=== PATIENT | female | born 1975 | race Caucasian/White ===

== ENCOUNTER 2020-02-21 10:22 | Outpatient (REF) | payer OTHER, SELFPAY ==
[2020-02-25 19:37] LABS: HPV mRNA E6/E7 Not Detected (Not Detected)
== END 2020-02-21 10:23 | disposition home or self-care (01) ==
LOC: HO.LAB 10:22
PROVIDERS: PCP Internal Medicine; Visit Provider Obstetrics & Gynecology
DX: Z01.419 Encounter for gynecological examination (general) (routine) without abnormal findings (principal)
CPT/HCPCS: 87624; 87625; 88142

== ENCOUNTER → 2020-03-19 15:12 | Outpatient (BNVA) | payer OTHER, SELFPAY | PROVIDERS: PCP Internal Medicine; Referring Provider Internal Medicine; Visit Provider Nurse Practitioner | DX: Z76.89 Persons encountering health services in other specified circumstances (principal) ==

== ENCOUNTER 2020-04-10 11:56 | Outpatient (REF) | payer OTHER, SELFPAY ==
--- NOTE | 2020-04-10 12:03 | MM_ITS ---
EXAMINATION: MM SCREENING DIGITAL MAMMOGRAPHY, BILATERAL CLINICAL INFORMATION: Screening. Asymptomatic. The lifetime risk of breast cancer based on the Tyrer-Cuzick Model is 11.9%. COMPARISON: Mammography: March 28, 2019 and studies dating back to October 16, 2015 TECHNIQUE: Digital mammography is performed in craniocaudal and mediolateral oblique views along with computer-aided detection (CAD). Additional right exaggerated craniocaudal view performed. FINDINGS: The breasts are heterogeneously dense, which may obscure small masses (ACR BI-RADS breast composition Category c). There is waxing and waning of bilateral circumscribed densities consistent with previously shown cysts. One enlarging cyst within the upper outer aspect of the right breast seen. No suspicious grouping of microcalcifications identified. MM/MM screening mammo BI IMPRESSION: There are no significant changes from prior study. ASSESSMENT: BI-RADS 2: Benign RECOMMENDATION: Routine annual mammography screening. This patient's information was entered into a reminder system with a target due date for their next mammogram.
== END 2020-04-10 11:57 | disposition home or self-care (01) ==
LOC: HO.MAMMO 11:56
PROVIDERS: Visit Provider Internal Medicine
DX: Z01.419 Encounter for gynecological examination (general) (routine) without abnormal findings (principal)
CPT/HCPCS: 77067

== ENCOUNTER 2020-04-15 02:08 | Emergency (ER) | payer OTHER, SELFPAY ==
[2020-04-15 02:20] VITALS: BP 119/76; PULSE 75; RESP 18; TEMP 36.6; O2SAT 97; BMI 26.5
--- NOTE | 2020-04-15 03:02 | ED.ABDPAIN ---
HPI - Abdominal Pain General Chief Complaint: Abdominal Pain Stated Complaint: ABD PAIN Time Seen by Provider: 04/15/20 02:14 Source: patient Mode of arrival: ambulatory Limitations: no limitations History of Present Illness HPI narrative: This is a 44-year-old female who presents with onset of epigastric pain at approximately 10:00 p.m. last night not associated with fevers, chills, nausea, vomiting, diarrhea, constipation, or urinary pain/burning/frequency. She describes the pain as engineer exhauster nature, nonradiating, and she has not had this pain this bad before. She denies any exacerbating or alleviating symptoms. Related Data Home Medications Medication Instructions Recorded Confirmed escitalopram oxalate 10 mg tablet 10 mg PO DAILY 02/21/20 02/21/20 ibuprofen 600 mg tablet 600 mg PO TID 02/21/20 02/21/20 risperidone 2 mg tablet 2 mg PO BEDTIME 02/21/20 02/21/20 trazodone 100 mg tablet 100 mg PO BEDTIME PRN 02/21/20 02/21/20 Previous Rx's Medication Instructions Recorded [id number] 1 cap PO QID #120 cap 03/19/20 24,000-76,000-120,000 unit capsule,delayed rel omeprazole 40 mg capsule,delayed 40 mg PO DAILY 30 Days #30 cap 03/19/20 release Allergies Allergy/AdvReac Type Severity Reaction Status Date / Time No Known Allergies Allergy Verified 04/15/20 02:34 [No Known Allergies*] Review of Systems Review of Systems Pertinent positives and negatives as stated in HPI 10 point review of systems otherwise negative. Physical Exam Vital Signs: Vital Signs: Last Vital Signs Temp 98 F 04/15/20 02:20 Pulse 75 04/15/20 02:20 Resp 18 04/15/20 02:20 BP 119/76 04/15/20 02:20 Pulse Ox 97 04/15/20 02:20 Body Mass Index 26.5 VITAL SIGNS: Reviewed. GENERAL: Well developed, well nourished, in no acute distress. HEAD: Normocephalic/atraumatic, EYES: PERRLA, EOMI intact without pain, no nystagmus/pallor/icterus noted EARS: Ext canals without abnormality, TMs non-bulging and non-erythematous NOSE: Nares patent bilateral OROPHARYNX: no oral lesions noted, posterior pharynx clear and non-erythematous without noted tonsillar enlargement/erythema/exudates NECK: Supple, no adenopathy LUNGS: Normal breath sounds. No adventitious sounds or accessory muscle use. SpO2<97> CARDIOVASCULAR: Regular rate and rhythm without noted murmurs, no JVD or lower extremity edema. ABDOMEN: Soft, tenderness in epigastrium/RUQ without rebound, non-distended with bowel sounds. No rigidity. No guarding. No palpable masses or hernias noted MUSCULOSKELETAL: No tenderness, deformities, or effusions noted on gross inspection. EXTREMITIES: No cyanosis, clubbing or edema. SKIN: Inspection of the skin reveals no rashes, ulcerations, jaundice, pallor, or petechiae. NEUROLOGIC: Alert and oriented x 4. Strength and sensation to light touch were grossly intact x 4. Course Course Course Narrative: This is a 44-year-old female with history and clinical presentation suggestive of possible biliary etiology versus pancreatitis versus acute gastritis. On review of all investigation is no evidence of infection, anemia, or acute electrolyte/LFT abnormalities. The GI cocktail and states that although she feels like it has numbed things she still is experiencing the pain raising and further evaluation with CT abdomen/pelvis was negative for any acute findings other than fatty liver. All results and findings were discussed with the patient at bedside and she was informed that she had presumptive gastritis with possible ulcer and the source is potentially her NSAID use that has been ongoing for months. MDM - Abdominal Pain Lab Data Result diagrams: 04/15/20 03:20 04/15/20 03:20 Labs: Lab Results 04/15/20 04/15/20 04/15/20 Range/Units 03:20 03:20 03:20 WBC 8.2 (4.8-10.8) X10*3/uL RBC 4.25 (4.20-5.50) X10*6/uL Hgb 13.2 (12.0-16.0) g/dl Hct 39.1 (37-47) % MCV 92.0 (80-98) fL MCH 31.1 (27.0-33.0) pg MCHC 33.8 (31.0-35.0) g/dl RDW 11.6 (11.0-16.0) % Plt Count 304 (160-400) X10*3/uL MPV 9.0 L (9.4-12.3) fL Immature Gran % (Auto) 0.2 (0.0-0.4) % Neut % (Auto) 65.3 (45-73) % Lymph % (Auto) 26.0 (20-40) % Brooke % (Auto) 6.4 (2-11) % Eos % (Auto) 1.7 (0-4) % Baso % (Auto) 0.4 (0-2) % Lymph # (Auto) 2.1 (1.2-4.9) X10*3/uL Brooke # (Auto) 0.5 (0.1-1.2) X10*3/uL Eos # (Auto) 0.1 (0.0-0.4) X10*3/uL Baso # (Auto) 0.0 (0.0-0.2) X10*3/uL Abs Immat Gran (auto) 0.02 (0.00-0.03) X10*3/uL Absolute Neuts (auto) 5.3 (2.0-8.3) X10*3/uL Absolute Nucleated RBC 0.000 (0.0-0.012) X10*3/uL Nucleated RBC % (auto) 0.0 (0.0-0.2) /100WBC Hold Blue Top SEE NOTE Sodium 139 (135-145) mmol/L Potassium 4.1 (3.3-5.1) mmol/l Chloride 104 (96-108) mmol/L Carbon Dioxide 28 (22-29) mmol/L Anion Gap 11 L (12-20) BUN 17 H (9-16) mg/dL Creatinine 0.71 (0.5-1.4) mg/dL Estim Creat Clear Calc 89.9 Estimated GFR > 60 Random Glucose 112 (60-115) mg/dL Calcium 8.2 L (8.4-10.2) mg/dL Total Bilirubin 0.4 (0.0-1.0) mg/dL AST 23 (5-31) U/L ALT 39 H (0-31) U/L Alkaline Phosphatase 69 (39-117) U/L Total Protein 6.7 (6.5-8.0) g/dL Albumin 4.0 (3.5-5.0) g/dL Lipase 19 (8-78) U/L Urine Color Urine Appearance Urine pH (5.0-8.0) Ur Specific Grandy (1.005-1.025) Urine Protein (NEG-TRACE) MG/DL Urine Glucose (UA) (NEG) MG/DL Urine Ketones (NEG) MG/DL Urine Blood (NEG) Urine Nitrite (NEG) Ur Leukocyte Esterase (NEG) Urine RBC (0) /HPF Urine WBC (0-4) /HPF Ur Squamous Epith Cells /LPF Urine Bacteria /LPF Urine Mucus /LPF Urine Yeast /HPF Urine Test (NEGATIVE) 04/15/20 Range/Units 03:21 WBC (4.8-10.8) X10*3/uL RBC (4.20-5.50) X10*6/uL Hgb (12.0-16.0) g/dl Hct (37-47) % MCV (80-98) fL MCH (27.0-33.0) pg MCHC (31.0-35.0) g/dl RDW (11.0-16.0) % Plt Count (160-400) X10*3/uL MPV (9.4-12.3) fL Immature Gran % (Auto) (0.0-0.4) % Neut % (Auto) (45-73) % Lymph % (Auto) (20-40) % Brooke % (Auto) (2-11) % Eos % (Auto) (0-4) % Baso % (Auto) (0-2) % Lymph # (Auto) (1.2-4.9) X10*3/uL Brooke # (Auto) (0.1-1.2) X10*3/uL Eos # (Auto) (0.0-0.4) X10*3/uL Baso # (Auto) (0.0-0.2) X10*3/uL Abs Immat Gran (auto) (0.00-0.03) X10*3/uL Absolute Neuts (auto) (2.0-8.3) X10*3/uL Absolute Nucleated RBC (0.0-0.012) X10*3/uL Nucleated RBC % (auto) (0.0-0.2) /100WBC Hold Blue Top Sodium (135-145) mmol/L Potassium (3.3-5.1) mmol/l Chloride (96-108) mmol/L Carbon Dioxide (22-29) mmol/L Anion Gap (12-20) BUN (9-16) mg/dL Creatinine (0.5-1.4) mg/dL Estim Creat Clear Calc Estimated GFR Random Glucose (60-115) mg/dL Calcium (8.4-10.2) mg/dL Total Bilirubin (0.0-1.0) mg/dL AST (5-31) U/L ALT (0-31) U/L Alkaline Phosphatase (39-117) U/L Total Protein (6.5-8.0) g/dL Albumin (3.5-5.0) g/dL Lipase (8-78) U/L Urine Color YELLOW Urine Appearance CLEAR Urine pH 6.0 (5.0-8.0) Ur Specific Grandy 1.025 (1.005-1.025) Urine Protein NEG (NEG-TRACE) MG/DL Urine Glucose (UA) NEG (NEG) MG/DL Urine Ketones NEG (NEG) MG/DL Urine Blood 1+ H (NEG) Urine Nitrite NEG (NEG) Ur Leukocyte Esterase NEG (NEG) Urine RBC 5-9 H (0) /HPF Urine WBC 0 (0-4) /HPF Ur Squamous Epith Cells 1+ /LPF Urine Bacteria NONE /LPF Urine Mucus 1+ /LPF Urine Yeast TRACE /HPF Urine Test NEGATIVE (NEGATIVE) Discharge Plan Discharge Clinical Impression: Gastritis Patient Disposition: Home, Self-Care Instructions: Gastritis (ED), Diet for Stomach Ulcers and Gastritis (ED) Additional Instructions: 1. Deje de alejandrina ibuprofeno. 2. Aumente el omeprazol 40 mg de leah vez al d?a a dos veces al d?a (la segunda p?ldora debe tomarse 30 minutos antes de la circular sawyer stone). 3. Llame al consultorio de toure proveedor de atenci?n primaria hoy para programar leah reevaluaci?n de alison s?ntomas y los cambios que se discutieron aqu? en el departamento de emergencias. 4. Por favor, revise las recomendaciones diet?emerita que se incluyen con toure paquete de abdon. Regrese si experimenta alg?n empeoramiento de alison s?ntomas. Prescriptions: No Action Creon 24,000-76,000 -120,000 unit capsule,delayed release(DR/EC) 1 cap PO QID Qty: 120 RF: 3 omeprazole 40 mg capsule,delayed release(DR/EC) 40 mg PO DAILY 30 Days Qty: 30 RF: 3 ibuprofen 600 mg tablet 600 mg PO TID RF: 0 trazodone 100 mg tablet 100 mg PO BEDTIME PRNRF: 0 risperidone 2 mg tablet 2 mg PO BEDTIME RF: 0 escitalopram oxalate 10 mg tablet 10 mg PO DAILY RF: 0 Referrals: Eleazar Evans MD [Primary Care Provider] - 2 days (Please re-evaluate patient as she was seen for suspected gastritis and was instructed to stop taking ibuprofen and instructed to increase the frequency of her omeprazole.) Print Language: Tongan [facility] Past Medical History Source: nursing notes reviewed Medical History ADHD Bipolar 1 disorder Hepatitis B Left knee pain Panic attacks Syphilis Well woman exam Surgical History History of bilateral salpingectomy History of lumpectomy Family History Family History Sister Cancer Social History Social History Household Members: None Alcohol intake: current Alcohol intake frequency: holidays/special occasions only Smoking Status: Current every day smoker Tobacco Type: Cigarette Cigarettes Per Day: 3 Advance Directives: No Advance Directives Information Provided: No Sexual orientation: Straight/Heterosexual Gender identity: female
--- NOTE | 2020-04-15 03:05 | US_ITS ---
EXAMINATION: ABDOMINAL LIMITED CLINICAL INFORMATION: Pain. COMPARISON: 06/07/2019. TECHNIQUE: Real-time imaging of the right upper quadrant abdominal viscera. FINDINGS: PANCREAS: The visualized pancreatic head and body are normal in appearance. The remainder of the pancreas is obscured from visualization by the overlying bowel gas. LIVER: The liver is of normal size and mild diffuse increased echogenicity without focal lesions nor intrahepatic biliary ductal dilation. GALLBLADDER: Normal. The gallbladder is physiologically distended without evidence of stones, sludge, polyps, wall thickening or pericholecystic fluid. COMMON BILE DUCT: Normal in caliber measuring 0.3 cm in diameter. RIGHT KIDNEY: Normal. No hydronephrosis. No renal calculi or focal parenchymal lesions. The kidney measures 10.2 cm in maximum dimension. FREE FLUID: None. US/US abdomen limited IMPRESSION: Liver of mild diffuse increased echogenicity without focal lesions. The appearance is nonspecific, but consistent with fatty infiltration. Neither cholelithiasis nor cholecystitis.
[2020-04-15 03:26] LABS: MANUAL DIFF FLAG NO
[2020-04-15 03:28] LABS: Basophils Percent Auto 0.4 % (0-2); Eosinophils Absolute Auto 0.1 X10*3/uL (0.0-0.4); Eosinophils Percent Auto 1.7 % (0-4); Hematocrit 39.1 % (37-47); Hemoglobin 13.2 g/dl (12.0-16.0); Imm Gran Abs Auto 0.02 X10*3/uL (0.00-0.03); Imm Gran Pct Auto 0.2 % (0.0-0.4); Lymphocytes Absolute Auto 2.1 X10*3/uL (1.2-4.9); Mean Corpuscular HGB Conc 33.8 g/dl (31.0-35.0); Mean Corpuscular Hemoglobin 31.1 pg (27.0-33.0); Monocytes Absolute Auto 0.5 X10*3/uL (0.1-1.2); Monocytes Percent Auto 6.4 % (2-11); Neutrophils Absolute Auto 5.3 X10*3/uL (2.0-8.3); Neutrophils Percent Auto 65.3 % (45-73); Platelet Count 304 X10*3/uL (160-400); Red Blood Count 4.25 X10*6/uL (4.20-5.50); Red Cell Distribution Width 11.6 % (11.0-16.0); White Blood Count 8.2 X10*3/uL (4.8-10.8)
[2020-04-15] MEDS: Ketorolac Tromethamine 15 MG/ML VIAL IVPUSH (03:28)
[2020-04-15 03:29] LABS: Glucose Urine UA NEG (NEG); Leukocyte Esterase Urine NEG (NEG); Nitrite Urine NEG (NEG); Specific Gravity - Urine 1.025 (1.005-1.025); Urine Blood 1+ (NEG); Urine Ketones NEG (NEG); Urine Protein NEG (NEG-TRACE)
[2020-04-15] MEDS: Lidocaine HCl Viscous 2 % 15 ML SOLUTION 10 ML MUCOUS MEM (03:29)
[2020-04-15] MEDS: Magnesium Hydrox/Alum Hydrox 30 ML ORAL.SUSP PO (03:29)
[2020-04-15] MEDS: Acetaminophen 325 MG TABLET 975 MG PO (03:29)
[2020-04-15 03:33] LABS: Appearance Urine CLEAR; Color Urine YELLOW
[2020-04-15 03:37] LABS: UPreg QC Valid YES; Urine Pregnancy NEGATIVE (NEGATIVE)
[2020-04-15 03:52] LABS: Alanine Aminotransferase 39 U/L (0-31); Alkaline Phosphatase 69 U/L (39-117); Anion Gap 11 (12-20); Aspartate Amino Transferase 23 U/L (5-31); Bilirubin Total 0.4 mg/dL (0.0-1.0); Blood Urea Nitrogen 17 mg/dL (9-16); Calcium 8.2 mg/dL (8.4-10.2); Carbon Dioxide 28 mmol/L (22-29); Chloride 104 mmol/L (96-108); Creatinine Clr Calc Pharmacy 89.9; Estimated Glomerular Filt Rate > 60; Glucose Random 112 mg/dL (60-115); Lipase 19 U/L (8-78); Potassium 4.1 mmol/l (3.3-5.1); Sodium 139 mmol/L (135-145); Total Protein 6.7 g/dL (6.5-8.0)
--- NOTE | 2020-04-15 03:58 | PC.NURSE ---
PATIENT RETURNED FROM ULTRASOUND WITH STAFF AT THIS TIME. AMBULATES WITH STEADY GAIT.
[2020-04-15 04:02] LABS: Mucus Urine 1+ /LPF; Squamous Epithelial Cell Urine 1+ /LPF; WBC Urine 0 /HPF (0-4)
--- NOTE | 2020-04-15 04:14 | CT_ITS ---
EXAMINATION: CT ABDOMEN AND PELVIS WITH CONTRAST CLINICAL INFORMATION: Epigastric pain. COMPARISON: 06/07/2019. TECHNIQUE: Contiguous axial thin section helical images of the abdomen and pelvis were performed following the administration of 85 mL of intravenous Omnipaque 350. The data set was reformatted in the coronal and sagittal planes and reviewed on an independent workstation. DLP: 532 mGy-cm. FINDINGS: The visualized lung bases are clear. The visualized portions of the heart are unremarkable. The liver is of normal size and attenuation without focal lesions nor intrahepatic biliary ductal dilation. A normal gallbladder is identified. There is no wall thickening or discernible pericholecystic fluid. The spleen, pancreas, adrenal glands are unremarkable. Both kidneys are of normal size and attenuation without hydronephrosis or nephrolithiasis. Following the administration of IV contrast, prompt symmetric nephrograms are displayed. There is no abdominal free fluid. There is neither mesenteric nor retroperitoneal lymphadenopathy. Normal unopacified loops of small and large bowel are identified. There is no pelvic free fluid. The urinary bladder is unremarkable. There is neither pelvic nor inguinal lymphadenopathy. Bone windows: Neither sclerotic nor lytic bone lesions are identified. CT/CT abdomen pelvis w con IMPRESSION: No evidence for acute abdominal or pelvic inflammatory or infectious processes. Automated exposure control (Care Dose) Adjustment of the mA and/or kv according to patient size (this includes techniques or standardized protocols for targeted exams where dose is matched to indication / reason for exam; i.e. extremities or head).
--- NOTE | 2020-04-15 04:26 | PC.NURSE ---
PATIENT AWAY FOR CT SCAN.
[2020-04-15] MEDS: iohexoL 350 MG/ML 100 ML INFUS..BTL 85 ML IV (04:42)
--- NOTE | 2020-04-15 05:04 | PC.NURSE ---
AT BEDSIDE SPEAKING WITH PATIENT.
== END 2020-04-15 05:51 | disposition home or self-care (01) ==
PROVIDERS: Emergency Provider Student in an Organized Health Care Education/Training Program; PCP Internal Medicine
DX: K29.00 Acute gastritis without bleeding (principal); Z79.899 Other long term (current) drug therapy; F17.210 Nicotine dependence, cigarettes, uncomplicated; Z71.6 Tobacco abuse counseling
CPT/HCPCS: 36415; 74177; 76705; 80053; 81001; 81025; 83690; 85025; 96374; 99283; 99284; J1885; Q9967

== ENCOUNTER → 2020-04-30 14:47 | Outpatient (BNVA) | payer OTHER, SELFPAY | PROVIDERS: PCP Internal Medicine; Visit Provider Nurse Practitioner | DX: Z76.89 Persons encountering health services in other specified circumstances (principal) ==

== ENCOUNTER 2020-05-02 13:25 | Emergency (ER) | payer OTHER, SELFPAY ==
[2020-05-02 13:28] VITALS: BP 112/68; PULSE 78; RESP 18; TEMP 37.2; O2SAT 97; BMI 26.9
--- NOTE | 2020-05-02 14:38 | CT_ITS ---
CT ANGIOGRAM NECK WITH CONTRAST CT ANGIOGRAM BRAIN WITH CONTRAST CLINICAL INFORMATION: RIGHT sided neck pain with radiation to head, rule out dissection. COMPARISON: None available. TECHNIQUE: Test bolus sequences followed by intravenous administration 70 mL of Omnipaque 350. Helical imaging was performed in the axial plane from the thoracic inlet to the skull vertex. Delayed postcontrast imaging of the head was also performed. The data was processed at the clinical laboratory technologist workstation for generation of MIP sequences. Angled MIPs and volume rendered reformatted images were also generated at an offline 3D workstation under concurrent supervision. Stenoses are assessed in accordance with NASCET criteria unless otherwise indicated. This CT examination was performed using dose optimization techniques as appropriate, variously including the following: *Automated exposure control *Adjustment of mA and/or kV according to patient size (this includes techniques or standardized protocols for targeted exams where dose is matched to indication/reason for exam; i.e. extremities or head) *Use of iterative reconstruction technique FINDINGS: BRAIN: [There is no intracranial hemorrhage, hydrocephalus, extra-axial surface collection, midline shift, or other herniation pattern. Cavazos to white matter differentiation is diffusely maintained without evidence of an evolved acute territorial infarct. The basilar cisterns are preserved. No significant soft tissue abnormality. No acute osseous abnormality. The paranasal sinuses and the mastoid air cells are well aerated.] CERVICAL SOFT TISSUES AND LUNG APICES: [Mild cervical spondylosis. No significant soft tissue findings within the neck. Imaged upper lungs are clear. NECK CTA: [There is a classic 3 vessel configuration of the aortic arch. Proximal arch vessels are non-stenotic. The vertebral arteries are codominant. No significant ostial stenosis is visualized on either side. Both vertebral arteries are widely patent throughout their extracranial cervical course. Both common and internal carotid arteries are normal in course and caliber.] BRAIN CTA: [There is normal opacification of major intracranial arteries. No focal flow-limiting stenosis nor discrete proximal large artery occlusion. No aneurysm. Timing of the contrast bolus allows assessment of the major dural venous sinuses, which all opacify normally] CT/CT angio head neck IMPRESSION: No acute intracranial findings. No evidence of arterial dissection. Unremarkable CTA of the head and neck. Mild cervical spondylosis.
--- NOTE | 2020-05-02 14:45 | ED_ITS ---
HPI - Headache General Chief Complaint: Headache Stated Complaint: headache Time Seen by Provider: 05/02/20 14:38 Source: patient Mode of arrival: ambulatory Limitations: no limitations History of Present Illness HPI Narrative: 44-year-old female with a past medical history migraines and GERD here with complaints of right-sided neck and head pain x3 days. Seen by her primary care doctor and given Imitrex but continues to have symptoms. No numbness or tingling. No weakness that is focal. No complaints of nausea, vomiting, photophobia. No previous history of migraines. No trauma or injury MD elicited complaint: headache Onset (ago): day(s) Onset description: suddenly Location: right Severity: mild Quality & Timing: throbbing Exacerbating factors: exertion and movement of head/neck Relieving factors: nothing Treatments prior to arrival: migraine medication (imitrex) Related Data Home Medications Medication Instructions Recorded Confirmed escitalopram oxalate 10 mg tablet 10 mg PO DAILY 02/21/20 04/30/20 ibuprofen 600 mg tablet 600 mg PO TID 02/21/20 04/30/20 risperidone 2 mg tablet 2 mg PO BEDTIME 02/21/20 04/30/20 trazodone 100 mg tablet 100 mg PO BEDTIME PRN 02/21/20 04/30/20 clonazepam 1 mg tablet 1 mg PO BID PRN 04/21/20 04/30/20 Previous Rx's Medication Instructions Recorded pantoprazole 40 mg tablet,delayed 40 mg PO DAILY 30 Days #30 tab 04/30/20 release sumatriptan succinate 50 mg tablet 50 mg PO .QD PRN #10 tab 04/30/20 cyclobenzaprine 10 mg PO TID PRN #10 tab 05/02/20 naproxen 500 mg PO BID PRN #20 tab 05/02/20 Allergies Allergy/AdvReac Type Severity Reaction Status Date / Time No Known Allergies Allergy Verified 04/30/20 14:47 [No Known Allergies*] Review of Systems Review of Systems: Yes all other systems are reviewed and are negative Constitutional: Constitutional: Reports no additional constitutional complaints, Denies body ache(s), Denies chills, Denies fever(s), Reports headache(s) and Denies weakness Eyes: Eyes: Reports no additional eye complaints and Denies change in vision ENT: Reports system reviewed and no additional complaints, except as documented, Denies dizziness, Reports headache(s), Denies nasal congestion, Denies nasal discharge and Reports neck pain Cardiovascular: Cardiovascular: Reports no additional cardiovascular complaints, Denies chest pain, Denies leg edema and Denies dyspnea Respiratory: Respiratory: Reports no additional respiratory complaints, Denies cough and Denies dyspnea Gastrointestinal: Gastrointestinal: Reports no additional gastrointestinal complaints, Denies abdominal pain, Denies diarrhea, Denies nausea and Denies vom iting Genitourinary: Genitourinary: Reports no additional female genitourinary complaints and Denies urinary incontinence Musculoskeletal: Musculoskeletal: Reports no additional musculoskeletal complaints, Denies back pain, Denies arthralgias, Denies joint swelling, Reports neck pain, Denies numbness and Denies tingling Integumentary/Breasts: Skin/Breast: Reports system reviewed and no additional complaints, except as docu and Denies rash Neurologic: Reports system reviewed and no additional complaints, except as d ocumented, Denies Abnormal speech present, Denies dizziness, Reports headache(s), Denies numbness, Denies tingling and Denies weakness [facility] Past Medical History Medical History (Updated 05/02/20 @ 17:24 by Sarita Galeano NP) ADHD Bipolar 1 disorder Hepatitis B Left knee pain Panic attacks Syphilis Well woman exam Surgical History (Updated 04/29/20 @ 11:05 by ZACH Couch) History of bilateral salpingectomy History of ectopic History of lumpectomy History of open reduction and internal fixation (ORIF) procedure Family History Family History (Updated 04/29/20 @ 11:09 by ZACH Couch) Sister Cancer Father Medical history unknown Mother Asthma Hepatitis C Hypoglycemia Son In good health Brother In good health Sister In good health Family/Other Breast cancer Social History Social History (Updated 04/30/20 @ 14:48 by ZACH Wilde) Household Members: None Alcohol intake: never Smoking Status: Never smoker Tobacco Type: Cigarette Cigarettes Per Day: 3 Use of substances other than those prescribed or required for medical reasons: No Advance Directives: No Advance Directives Information Provided: No Sexual orientation: Straight/Heterosexual Gender identity: female Physical Exam Vital Signs: Vital Signs: Last Vital Signs Temp 98.4 F 05/02/20 16:40 Pulse 75 05/02/20 16:40 Resp 16 01/01/21 16:40 BP 127/73 05/02/20 16:40 Pulse Ox 98 05/02/20 16:40 Body Mass Index 26.9 Const: General: cooperative, healthy appearing, comfortable and no acute distress Orientation/consciousness: patient oriented x3 Limitations: no limitations HENMT: Head: Yes normal to inspection Ears: hearing grossly normal bilaterally General nose exam: Normal external nose present Face and sinus: Yes normal facial exam Mouth: Normal oral and palatal mucosa present Throat: Yes posterior oropharynx normal Eyes: General: appearance normal, both eyes and all related structures Pupils: Equal, round and reactive pupils present Neck: Other: To the right neck at the base of the right occipt there is tenderness and pain. There is no obvious pulsating or thrill or bruit. Pain is worsened with palpation and movement. Neck: Yes normal visual inspection Chest: Chest palpation & inspection: normal inspection of the chest Resp: Effort & Inspection: normal respiratory effort Auscultation: clear to auscultation bilaterally Cardio: Rate: regular rate Rhythm: regular rhythm Peripheral pulses: Peripheral pulses 2+ throughout GI: Inspection: Yes normal to inspection Palpation (GI): Soft to palpation and nontender Auscultation: normal bowel sounds Back/Spine/Pelvis: Thoracic/Lumbar Spine: thoracic and lumbar spine normal to inspection Skin: General skin exam: no rashes or lesions noted Neuro: General: patient oriented x3, no focal motor deficits and normal sensation to monofilament Cranial nerves: Yes Equal, round and reactive pu pils present Cognition (Neuro): normal cognition Speech: No Abnormal speech present Gait exam (Neuro): Normal gait present Motor exam (neuro): 5/5 motor strength present throughout Extrem: General: Yes normal to inspection Course Course Course Narrative: 44-year-old female here with right-sided neck pain and headache x3 days unrelieved with home migraine medications. Patient seen at private primary and thought to be secondary to migraines she was prescribed Imitrex but she is taking this with continued symptoms. Normal neurological exam. Pain is worsened with palpation, movement. Will check labs, UR preg, CT head/neck. 1800-labs unremarkable. CT head and neck unremarkable. Likely musculoskeletal with a tension migraine. Symptoms improved after receiving analgesia here. Reviewed worrisome signs and symptoms and when to return to the emergency department. Comfortable with discharge home. MDM - Headache MDM Narrative Medical decision making narrative: Tension headache, musculoskeletal pain, vertebral dissection, CVA vs ICH vs lesion Medical Records Attestation: I reviewed the patient's medical records. Lab Data Attestation: I reviewed the patient's lab results. Result diagrams: 05/02/20 14:55 05/02/20 14:55 Labs: Lab Results 05/02/20 05/02/20 05/02/20 Range/Units 14:55 14:55 14:55 WBC 6.2 (4.8-10.8) X10*3/uL RBC 4.40 (4.20-5.50) X10*6/uL Hgb 14.0 (12.0-16.0) g/dl Hct 40.7 (37-47) % MCV 92.5 (80-98) fL MCH 31.8 (27.0-33.0) pg MCHC 34.4 (31.0-35.0) g/dl RDW 11.1 (11.0-16.0) % Plt Count 310 (160-400) X10*3/uL MPV 9.1 L (9.4-12.3) fL Immature Gran % (Auto) 0.2 (0.0-0.4) % Neut % (Auto) 59.3 (45-73) % Lymph % (Auto) 34.1 (20-40) % Lander % (Auto) 5.2 (2-11) % Eos % (Auto) 1.0 (0-4) % Baso % (Auto) 0.2 (0-2) % Lymph # (Auto) 2.1 (1.2-4.9) X10*3/uL Lander # (Auto) 0.3 (0.1-1.2) X10*3/uL Eos # (Auto) 0.1 (0.0-0.4) X10*3/uL Baso # (Auto) 0.0 (0.0-0.2) X10*3/uL Abs Immat Gran (auto) 0.01 (0.00-0.03) X10*3/uL Absolute Neuts (auto) 3.7 (2.0-8.3) X10*3/uL Absolute Nucleated RBC 0.000 (0.0-0.012) X10*3/uL Nucleated RBC % (auto) 0.0 (0.0-0.2) /100WBC Sodium 138 (135-145) mmol/L Potassium 4.3 (3.3-5.1) mmol/l Chloride 101 (96-108) mmol/L Carbon Dioxide 28 (22-29) mmol/L Anion Gap 13 (12-20) BUN 16 (9-16) mg/dL Creatinine 0.70 (0.5-1.4) mg/dL Estim Creat Clear Calc 91.8 Estimated GFR > 60 Random Glucose 90 (60-115) mg/dL Calcium 9.2 D (8.4-10.2) mg/dL Urine Test NEGATIVE (NEGATIVE) Imaging Data Ct head/neck : Attestation: I personally reviewed and interpreted this imaging study as leo lombardo: Radiologist's impression: CT ANGIOGRAM NECK WITH CONTRAST CT ANGIOGRAM BRAIN WITH CONTRAST CLINICAL INFORMATION: RIGHT sided neck pain with radiation to head, rule out dissection. COMPARISON: None available. TECHNIQUE: Test bolus sequences followed by intravenous administration 70 mL of Omnipaque 350. Helical imaging was performed in the axial plane from the thoracic inlet to the skull vertex. Delayed postcontrast imaging of the head was also performed. The data was processed at the manufacturing engineering technologist workstation for generation of MIP sequences. Angled MIPs and volume rendered reformatted images were also generated at an offline 3D workstation under concurrent supervision. Stenoses are assessed in accordance with NASCET criteria unless otherwise indicated. This CT examination was performed using dose optimization techniques as appropriate, variously including the following: *Automated exposure control *Adjustment of mA and/or kV according to patient size (this includes techniques or standardized protocols for targeted exams where dose is matched to indication/reason for exam; i.e. extremities or head) *Use of iterative reconstruction technique FINDINGS: BRAIN: [There is no intracranial hemorrhage, hydrocephalus, extra-axial surface collection, midline shift, or other herniation pattern. Cavazos to white matter differentiation is diffusely maintained without evidence of an evolved acute territorial infarct. The basilar cisterns are preserved. No significant soft tissue abnormality. No acute osseous abnormality. The paranasal sinuses and the mastoid air cells are well aerated.] CERVICAL SOFT TISSUES AND LUNG APICES: [Mild cervical spondylosis. No significant soft tissue findings within the neck. Imaged upper lungs are clear. NECK CTA: [There is a classic 3 vessel configuration of the aortic arch. Proximal arch vessels are non-stenotic. The vertebral arteries are codominant. No significant ostial stenosis is visualized on either side. Both vertebral arteries are widely patent throughout their extracranial cervical course. Both common and internal carotid arteries are normal in course and caliber.] BRAIN CTA: [There is normal opacification of major intracranial arteries. No focal flow-limiting stenosis nor discrete proximal large artery occlusion. No aneurysm. Timing of the contrast bolus allows assessment of the major dural venous sinuses, which all opacify normally] CT/CT angio head neck IMPRESSION: No acute intracranial findings. No evidence of arterial dissection. Unremarkable CTA of the head and neck. Mild cervical spondylosis. Discharge Plan Discharge Clinical Impression: Tension headache, Muscle spasm Patient Disposition: Home, Self-Care Instructions: Tension Headache (ED), Muscle Spasm (ED) Additional Instructions: Heat or ice Gentle stretching Follow-up with her primary care doctor Prescriptions: New cyclobenzaprine 10 mg tablet 10 mg PO TID PRN (Reason: muscle spasm) Qty: 10 RF: 0 naproxen 500 mg tablet 500 mg PO BID PRN (Reason: pain) Qty: 20 RF: 0 No Action clonazepam 1 mg tablet 1 mg PO BID PRNRF: 0 sumatriptan succinate [Imitrex] 50 mg tablet 50 mg PO .QD PRN (Reason: migraine headache) Qty: 10 RF: 1 ibuprofen 600 mg tablet 600 mg PO TID RF: 0 trazodone 100 mg tablet 100 mg PO BEDTIME PRNRF: 0 risperidone 2 mg tablet 2 mg PO BEDTIME RF: 0 escitalopram oxalate 10 mg tablet 10 mg PO DAILY RF: 0 pantoprazole [Protonix] 40 mg tablet,delayed release (DR/EC) 40 mg PO DAILY 30 Days Qty: 30 RF: 3 Referrals: Eleazar Evans MD [Primary Care Provider] - 2 days Interventions: ED Discharge Assessment Last Done: 05/02/20 17:40 Discharge Date/Time: 05/02/20 17:40
[2020-05-02 14:56] VITALS: RESP 18
[2020-05-02] MEDS: ondansetron HCL 4 MG/2 ML VIAL IVPUSH (14:56)
[2020-05-02] MEDS: Morphine Sulfate 4 MG/ML CARTRIDGE IVPUSH (14:56)
[2020-05-02 15:08] LABS: Basophils Percent Auto 0.2 % (0-2); Eosinophils Absolute Auto 0.1 X10*3/uL (0.0-0.4); Hematocrit 40.7 % (37-47); Imm Gran Abs Auto 0.01 X10*3/uL (0.00-0.03); Imm Gran Pct Auto 0.2 % (0.0-0.4); Lymphocytes Absolute Auto 2.1 X10*3/uL (1.2-4.9); Lymphocytes Percent Auto 34.1 % (20-40); MANUAL DIFF FLAG NO; Mean Corpuscular HGB Conc 34.4 g/dl (31.0-35.0); Mean Corpuscular Hemoglobin 31.8 pg (27.0-33.0); Mean Corpuscular Volume 92.5 fL (80-98); Mean Platelet Volume 9.1 fL (9.4-12.3); Monocytes Absolute Auto 0.3 X10*3/uL (0.1-1.2); Monocytes Percent Auto 5.2 % (2-11); Neutrophils Absolute Auto 3.7 X10*3/uL (2.0-8.3); Neutrophils Percent Auto 59.3 % (45-73); Platelet Count 310 X10*3/uL (160-400); Red Cell Distribution Width 11.1 % (11.0-16.0); White Blood Count 6.2 X10*3/uL (4.8-10.8)
[2020-05-02 15:13] LABS: UPreg QC Valid YES; Urine Pregnancy NEGATIVE (NEGATIVE)
[2020-05-02 15:45] LABS: Anion Gap 13 (12-20); Blood Urea Nitrogen 16 mg/dL (9-16); Calcium 9.2 mg/dL (8.4-10.2); Carbon Dioxide 28 mmol/L (22-29); Chloride 101 mmol/L (96-108); Creatinine Clr Calc Pharmacy 91.8; Estimated Glomerular Filt Rate > 60; Glucose Random 90 mg/dL (60-115); Potassium 4.3 mmol/l (3.3-5.1); Sodium 138 mmol/L (135-145)
[2020-05-02] MEDS: iohexoL 350 MG/ML 100 ML INFUS..BTL IV (16:36)
[2020-05-02 16:40] VITALS: BP 127/73; PULSE 75; RESP 16; TEMP 36.9; O2SAT 98
--- NOTE | 2020-05-02 16:44 | PC.NURSE ---
pt reports no improvement in pain s/p medication. ambulated to br w/ even steady gait.
[2020-05-02] MEDS: Cyclobenzaprine HCl 10 MG TABLET PO (17:20)
[2020-05-02] MEDS: Ketorolac Tromethamine 30 MG/ML VIAL IVPUSH (17:20)
== END 2020-05-02 17:40 | disposition home or self-care (01) ==
PROVIDERS: Nurse Practitioner Family; Emergency Provider Emergency Medicine; PCP Internal Medicine
DX: G44.209 Tension-type headache, unspecified, not intractable (principal); M62.838 Other muscle spasm; M47.812 Spondylosis without myelopathy or radiculopathy, cervical region; F17.210 Nicotine dependence, cigarettes, uncomplicated
CPT/HCPCS: 36415; 70496; 70498; 80048; 81025; 85025; 96374; 96375; 99284; J1885; J2270; J2405; Q9967

== ENCOUNTER 2020-05-29 10:52 | Outpatient (RCR) | payer OTHER, SELFPAY ==
--- NOTE | 2020-05-29 12:00 | MHC.PT.EP ---
[facility] [place] Office [place] Office [place] Office [address] [phone] F: [phone] F: [phone] F: [phone] F: [phone] Physical Therapy Plan of Care Date of Evaluation: 05/29/20 Date of Surgery: NA Diagnosis: Strain of muscle, fascia and tendon at neck level, sequela Assessment: 44 year old female referred for strain of muscle, fascia, and tendon at neck level, sequela . She reports of having sudden onset of neck pain about 2 months back. She denies any trauma or fall. Pt reports of having pain in R side of her neck behind her ears which travels down to R UT. She denies any radicular symptoms. Examination reveals 8/10 pain in R side of neck with R rotation, flexion, decreased cervical ROM, TTP over R UT, C2 spinous process, decreased PA mobility at C2-3-4, decreased muscle strength and altered posture. She lives alone and is independent with all ADLs but has pain with activities requiring her to look to the R and reach overhead. She is unemployed. She is a good candidate for PT based on age, goals, physical impairments and functional limitations. She would benefit from PT to decrease pain, improve ROM, increase muscle strength, postural correction and functional training. Frequency and Duration: The patient will be seen 2/week for 4 weeks Short Term Goals: 1. Pt will have 50% decrease in pain in 2 weeks. 2. Pt will be able to move cervical spine through all planes of motion without pain in 3 weeks Roentgenology Teacher Goals: 1. Pt will be able to perform all ADLS without pain in 4 weeks. 2. Pt will return to PLOF in 4 weeks. Treatment Plan: Modalities to reduce pain, spasms and effusion. Manual therapy to restore motion and function. Therapeutic exercise to improve strength and flexibility. Neuromuscular re-education for posture and balance. Therapeutic activities to return to functional activities of daily living. Electronically signed by: Jennifer Lott DPT Please sign and return to therapist. Thank you for your referral.
--- NOTE | 2020-07-08 10:44 | MHC.PT.DC ---
[facility] [place] Office [place] Office [place] Office [address] Nimisha Goodman [address] [phone] F: [phone] F: [phone] F: [phone] F: [phone] Physical Therapy Discharge Report Diagnosis: Strain of muscle, fascia and tendon at neck level, sequela Date of Surgery: NA Date of Evaluation: 05/29/20 Date of Discharge: 07/08/20 Treatments to Date: 1 Cancellations to Date: 5 No Shows to Date: 3 Discharge Status: Visit Non-compliance Discharge Summary: Pt discharged from therapy for non compliance. Electronically signed by: Jennifer Lott DPT Please sign and return to therapist. Thank you for your referral.
== END 2020-07-08 10:45 | disposition other institution (70) ==
LOC: HO.PT 10:52
PROVIDERS: PCP Internal Medicine; Visit Provider Internal Medicine
DX: S16.1XXD Strain of muscle, fascia and tendon at neck level, subsequent encounter (principal)
CPT/HCPCS: 97110; 97140; 97161

== ENCOUNTER 2020-07-30 09:03 | Outpatient (REF) | payer OTHER, SELFPAY ==
[2020-07-30 14:43] LABS: CT PCR NOT DETECTED (Not Detect.)
[2020-07-30 14:44] LABS: NG PCR NOT DETECTED (Not Detect.)
== END 2020-07-30 09:04 | disposition home or self-care (01) ==
LOC: HO.LAB 09:03
PROVIDERS: PCP Internal Medicine; Visit Provider Obstetrics & Gynecology
DX: R10.2 Pelvic and perineal pain (principal); N94.10 Unspecified dyspareunia; R35.0 Frequency of micturition; R31.29 Other microscopic hematuria
CPT/HCPCS: 81003; 81025; 87491; 87591; 99212

== ENCOUNTER 2020-08-06 11:21 | Outpatient (REF) | payer OTHER, SELFPAY ==
--- NOTE | ~2020-08-06 | US_ITS ---
EXAMINATION: US PELVIS, COMPLETE CLINICAL INFORMATION: Pelvic pain. COMPARISON: None TECHNIQUE: Transabdominal and transvaginal imaging was performed. FINDINGS: LMP: 3 weeks ago. Uterus is anteverted, measuring 6.9 x 3.3 x 4.1 cm. No focal uterine lesion. Nabothian cysts in the cervix. Endometrial thickness 0.8 cm. Right ovary measures 2 x 1.9 x 1.5 cm. Volume 3 mL. Small follicles. Normal vascular flow seen. Left ovary measures 3 x 2.4 x 2.1 cm. Volume 7.9 mL. There is a hypoechoic 1.3 x 1.2 x 1.6 cm focus with hyperechoic wall. This is indeterminate. Normal vascular flow. No free fluid in the cul-de-sac. US/US pelvic complete IMPRESSION: Left ovarian 1.6 cm complex hypoechoic lesion with hyperechoic wall. Differential considerations include complex cystic lesion, hemorrhagic cyst, endometrioma. Recommend followup ultrasound in 6-12 weeks.
--- NOTE | ~2020-08-06 | US_ITS ---
EXAMINATION: US PELVIS, COMPLETE CLINICAL INFORMATION: Pelvic pain. COMPARISON: None TECHNIQUE: Transabdominal and transvaginal imaging was performed. FINDINGS: LMP: 3 weeks ago. Uterus is anteverted, measuring 6.9 x 3.3 x 4.1 cm. No focal uterine lesion. Nabothian cysts in the cervix. Endometrial thickness 0.8 cm. Right ovary measures 2 x 1.9 x 1.5 cm. Volume 3 mL. Small follicles. Normal vascular flow seen. Left ovary measures 3 x 2.4 x 2.1 cm. Volume 7.9 mL. There is a hypoechoic 1.3 x 1.2 x 1.6 cm focus with hyperechoic wall. This is indeterminate. Normal vascular flow. No free fluid in the cul-de-sac. US/US transvaginal IMPRESSION: Left ovarian 1.6 cm complex hypoechoic lesion with hyperechoic wall. Differential considerations include complex cystic lesion, hemorrhagic cyst, endometrioma. Recommend followup ultrasound in 6-12 weeks.
== END 2020-08-06 11:22 | disposition home or self-care (01) ==
LOC: HO.US 11:21
PROVIDERS: Visit Provider Obstetrics & Gynecology
DX: R10.2 Pelvic and perineal pain (principal)
CPT/HCPCS: 76830; 76856

== ENCOUNTER 2020-08-12 07:17 | Day surgery (SDC) | payer OTHER, SELFPAY ==
[2020-08-06 12:26] VITALS: BMI 26.9
--- NOTE | 2020-08-08 14:05 | HO.ANESPROP2 ---
Documented by User: Kelly Mancuso 08/08/20 14:06 HPI - Anesthesia Eval Consult details Narrative: 44yo F for Upper Endoscopy PMFSH Active Problems Active Problems: All Active Problems (Updated 08/06/20 @ 12:21 by Carito So) Biliary dyskinesia (Acute) GERD (gastroesophageal reflux disease) (Acute) Migraine (Acute) Epigastric pain (Acute) Pelvic pain (Acute) Microscopic hematuria (Acute) Acute cervical myofascial strain (Acute) Migraine headache (Acute) Past Medical History Medical History Acute cervical myofascial strain ADHD Bipolar 1 disorder Hepatitis B Left knee pain Migraine headache Panic attacks Syphilis Family History Family History Sister Cancer Father Medical history unknown Mother Asthma Hepatitis C Hypoglycemia Son In good health Brother In good health Sister In good health Family/Other Breast cancer Surgical History Surgical History History of bilateral salpingectomy History of ectopic History of lumpectomy History of open reduction and internal fixation (ORIF) procedure Social History Social History Household Members: None Alcohol intake: never Smoking Status: Never smoker Tobacco Type: Cigarette Cigarettes Per Day: 3 Advance Directives: No Advance Directives Information Provided: No Advance Directives on File: No Sexual orientation: Straight/Heterosexual Gender identity: female Meds Allergies Allergy/AdvReac Type Severity Reaction Status Date / Time No Known Allergies Allergy Verified 08/12/20 07:52 [No Known Allergies*] Home Medications Medication Instructions Recorded Confirmed Last Taken Type escitalopram oxalate 10 mg tablet 10 mg PO DAILY 02/21/20 08/06/20 Unknown History risperidone 2 mg tablet 2 mg PO BEDTIME 02/21/20 08/06/20 Unknown History trazodone 100 mg tablet 100 mg PO BEDTIME PRN 02/21/20 05/09/20 Unknown History clonazepam 1 mg tablet 1 mg PO BID PRN 04/21/20 08/06/20 Unknown History Exam Exam Date and Time: August 08, 2020 1405 Height,Weight and Vital Signs: Height 5 ft 2 in Weight 66.678 kg Assessment and Plan Assessment Anesthesia Assessment: Chart Reviewed Documented by User: Mehreen Sanchez 08/12/20 08:45 PMFSH Past Medical History Medical History Acute cervical myofascial strain ADHD Bipolar 1 disorder Hepatitis B Left knee pain Migraine headache Panic attacks Syphilis Family History Family History Sister Cancer Father Medical history unknown Mother Asthma Hepatitis C Hypoglycemia Son In good health Brother In good health Sister In good health Family/Other Breast cancer Surgical History Surgical History History of bilateral salpingectomy History of ectopic History of lumpectomy History of open reduction and internal fixation (ORIF) procedure Social History Social History Household Members: None Alcohol intake: never Smoking Status: Never smoker Tobacco Type: Cigarette Cigarettes Per Day: 3 Advance Directives: No Advance Directives Information Provided: No Advance Directives on File: No Sexual orientation: Straight/Heterosexual Gender identity: female Meds Allergies Allergy/AdvReac Type Severity Reaction Status Date / Time No Known Allergies Allergy Verified 08/12/20 07:52 [No Known Allergies*] Home Medications Medication Instructions Recorded Confirmed Last Taken Type escitalopram oxalate 10 mg tablet 10 mg PO DAILY 02/21/20 08/06/20 Unknown History risperidone 2 mg tablet 2 mg PO BEDTIME 02/21/20 08/06/20 Unknown History trazodone 100 mg tablet 100 mg PO BEDTIME PRN 02/21/20 05/09/20 Unknown History clonazepam 1 mg tablet 1 mg PO BID PRN 04/21/20 08/06/20 Unknown History Exam Airway Mallampati Class: II TM Dist: >3cm Neck ROM: Full Partial: Upper Loose/Missing/Broken Teeth: Yes Heart: RRR Lungs: CTA Assessment and Plan Assessment Anesthesia Assessment: Anesthesia Plan Discussed and Chart Reviewed Final Anesthetic Review NPO: Yes ASA Class: II Final Preanesthetic Review: Meds/Allgs Chart Reviewed, Consent Obtained/Reviewed and Anes Risks/Benef Reviewed Patient Risk: Low Procedure Risk: Intermediate Anesthetic Plan Anesthetic Plan: MAC: Disposition: Standard PACU
[2020-08-12 07:56] VITALS: BP 99/50; PULSE 65; RESP 16; TEMP 36.6; O2SAT 98
[2020-08-12] MEDS: Lactated Ringers 1,000 ML 100 ML IVCONT (08:07)
[2020-08-12] MEDS: Scopolamine 1.5 MG PATCH.TD.3 EAR-BEHIND (08:52)
--- NOTE | 2020-08-12 08:54 | MHC.SHP ---
Pre-Procedural Eval Section B Chief Complaint: epigastric pain Details of Present Illness: BURNING PAIN RADIATION SUBXIPHOID TO BACK OF THROAT Relevant Family History (Specify if Yes): No Relevant Social History: Tobacco Use (3/ DAY) Present Medications: see Short Stay Collaborative assessment Medical History: Significant History (BIPOLAR DISORDER, ADHD, GERD) History of Previous Operations: No relevant previous surgery Allergies: Allergies Allergy/AdvReac Type Severity Reaction Status Date / Time No Known Allergies Allergy Verified 08/12/20 07:52 [No Known Allergies*] Review of Systems Sugical H&P ROS: Negative: Constitution, Cardiovascular, Respiratory and Musculoskeletal and Yes, Specify: Gastrointestinal (Gerd like,) Exam Surgical H&P Exam: Normal: HEENT, Normal: Heart, Normal: Lungs, Normal: Extremities, Normal: Abdomen and Normal: Skin Plan Diagnosis/Plan: Unchanged I have reviewed the history and physical and performed a pertinent physical examination on my patient. No changes have occurred unless specified.yes
--- NOTE | 2020-08-12 09:11 | PM.OP ---
Brief Operative Note Date of Service: 08/12/20 Pre-op diagnosis: Ongoing Gerd sx despite meds (Altho was taking NSAIDS) Post-op diagnosis: other (HIATAL HERNIA, EROSIONS ANTRAL) Procedure: EGD WITH BX Implants: NONE Surgeon: Devorah Turner MD Anesthesia: MAC (MD ROSI) Estimated blood loss (mL): 5 Pathology: other (GASTRIC) Condition: stable Disposition: PACU
[2020-08-12 09:13] VITALS: BP 113/64; PULSE 96; RESP 18; TEMP 36.2; O2SAT 94
--- NOTE | 2020-08-12 09:15 | P.BOP_ITS ---
Brief Operative Note Surgeon: Devorah Turner MD
--- NOTE | 2020-08-12 09:15 | PM.OP ---
Brief Operative Note Surgeon: Devorah Turner MD
--- NOTE | 2020-08-12 09:25 | W.PM.OPN ---
Operative Note Operative Note Date of Service: 08/12/20 Narrative: Pre-op diagnosis: Ongoing Gerd sx despite meds (Altho was taking NSAIDS) Post-op diagnosis: other (HIATAL HERNIA, EROSIONS ANTRAL) Procedure: EGD WITH BX Implants: NONE Surgeon: Devorah Turner MD Anesthesia: MAC (MD ROSI) FINDINGS: Video gastroscope was introduced with out difficulty. Esophageal mucosa was normal GE junction clear and distinct-distal to this is a small Hiatal hernia. Gastric mucosa fundus and body showed no erythema. Cluster of 3 superficial erosions seen in the antrum. (Gastric bx were obtained.) Duodenal bulb and Duodenum were normal. As we were removing scope, patient had episode of mild laryngospasm. (She is a cigarette smoker.) This resolved quickly. Estimated blood loss (mL): 5 Pathology: other (GASTRIC) Condition: stable Disposition: PAC PLAN: PATIENT IS TO BE RESEEN IN THE OFFICE IN FOLLOWUP FOR CONTINUED ADJUSTMENT TO HER MANAGEMENT.
[2020-08-12 09:27] VITALS: BP 115/69; PULSE 76; RESP 16; TEMP 36.2; O2SAT 96
== END 2020-08-12 10:02 | disposition home or self-care (01) ==
PROVIDERS: PCP Internal Medicine; Visit Provider Internal Medicine Gastroenterology
PROC: 0DJ08ZZ Inspection of Upper Intestinal Tract, Via Natural or Artificial Opening Endoscopic (ICD-10-PCS; CPT 43235; principal; 2020-08-12 08:30)
DX: K29.60 Other gastritis without bleeding (principal); B96.81 Helicobacter pylori [H. pylori] as the cause of diseases classified elsewhere; K44.9 Diaphragmatic hernia without obstruction or gangrene; K21.9 Gastro-esophageal reflux disease without esophagitis; F31.9 Bipolar disorder, unspecified; Z79.899 Other long term (current) drug therapy; J38.5 Laryngeal spasm; F17.210 Nicotine dependence, cigarettes, uncomplicated
CPT/HCPCS: 43239; 88305; 88342

== ENCOUNTER 2020-08-19 10:49 | Outpatient (REF) | payer OTHER, SELFPAY ==
[2020-08-20 06:27] LABS: CA-125 7 U/mL (<35)
== END 2020-08-19 10:50 | disposition home or self-care (01) ==
LOC: HO.LAB 10:49
PROVIDERS: PCP Internal Medicine; Visit Provider Obstetrics & Gynecology
DX: N83.299 Other ovarian cyst, unspecified side (principal); R10.2 Pelvic and perineal pain; R31.29 Other microscopic hematuria; F17.210 Nicotine dependence, cigarettes, uncomplicated
CPT/HCPCS: 36415; 86304

== ENCOUNTER → 2020-08-22 10:26 | Outpatient (BNVA) | payer OTHER, SELFPAY | PROVIDERS: PCP Internal Medicine; Visit Provider Nurse Practitioner ==

== ENCOUNTER → 2020-08-26 09:36 | Outpatient (BNVA) | payer OTHER, SELFPAY | PROVIDERS: PCP Internal Medicine; Visit Provider Obstetrics & Gynecology | DX: R31.29 Other microscopic hematuria (principal) | CPT/HCPCS: 99212 ==

== ENCOUNTER 2020-09-12 12:58 | Emergency (ER) | payer OTHER, SELFPAY ==
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
[2020-09-12 13:14] VITALS: BP 140/85; PULSE 100; RESP 18; TEMP 37; O2SAT 100; BMI 27.4
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
== END 2020-09-12 16:06 | disposition left against medical advice (07) ==
PROVIDERS: Emergency Provider Emergency Medicine; PCP Internal Medicine
DX: S06.0X9A Concussion with loss of consciousness of unspecified duration, initial encounter (principal); S05.12XA Contusion of eyeball and orbital tissues, left eye, initial encounter; G44.309 Post-traumatic headache, unspecified, not intractable; Y04.8XXA Assault by other bodily force, initial encounter; Y93.9 Activity, unspecified; Y92.9 Unspecified place or not applicable; Y99.9 Unspecified external cause status; F17.210 Nicotine dependence, cigarettes, uncomplicated; Z71.6 Tobacco abuse counseling; Z79.899 Other long term (current) drug therapy
CPT/HCPCS: 70450; 70486; 99283

== ENCOUNTER → 2020-09-23 14:29 | Outpatient (BNVA) | payer OTHER, SELFPAY | PROVIDERS: PCP Internal Medicine; Visit Provider Obstetrics & Gynecology ==

== ENCOUNTER 2020-09-29 17:03 | Emergency (ER) | payer OTHER, SELFPAY ==
--- NOTE | ~2020-09-29 | XR_ITS ---
EXAMINATION: XR FINGER, RIGHT CLINICAL INFORMATION: Crushing injury of third finger with laceration COMPARISON: None TECHNIQUE: Three views of the right long finger. FINDINGS: There is normal alignment without acute fracture or dislocation. There is a laceration of the nailbed of the third digit. No radiopaque foreign body is visualized. XR/XR finger RT min 2V IMPRESSION: Laceration of the distal aspect of the third digit. No underlying bony injury. No radiopaque foreign body.
[2020-09-29 17:33] VITALS: BP 124/70; PULSE 68; RESP 18; TEMP 36.4; O2SAT 96; BMI 26.2
--- NOTE | 2020-09-29 18:39 | ED_ITS ---
HPI - Wound/Laceration General Chief Complaint: Wound/Laceration Stated Complaint: lac Source: patient Mode of arrival: ambulatory Limitations: no limitations History of Present Illness HPI narrative: 45-year-old female presents with crush injury to the right index finger. She closed her finger in a car door, and has a small avulsion laceration to the lateral aspect of the right finger. She has full range of mot ion, and has sensation, states to be in significant pain, and it is unknown when her last Tdap vaccine was updated. Onset (ago): hour(s) (Within the hour of arrival.) Place: home Patient tetanus UTD: No Context: accidental Associated symptoms: pain Treatments prior to arrival: bandage Related Data Home Medications Medication Instructions Recorded Confirmed escitalopram oxalate 10 mg tablet 10 mg PO DAILY 02/21/20 08/06/20 risperidone 2 mg tablet 2 mg PO BEDTIME 02/21/20 08/06/20 trazodone 100 mg tablet 100 mg PO BEDTIME PRN 02/21/20 05/09/20 clonazepam 1 mg tablet 1 mg PO BID PRN 04/21/20 08/06/20 omeprazole 10 mg capsule,delayed 10 mg PO DAILY 09/23/20 09/23/20 release Previous Rx's Medication Instructions Recorded sumatriptan succinate 50 mg tablet 50 mg PO DAILY PRN #10 tab 06/20/20 [id number]-[id number] 1 cap PO BID 10 Days #20 cap 06/27/20 50 mg-300 mg-40 mg capsule cyclobenzaprine 10 mg tablet 10 mg PO BEDTIME PRN 30 Days #30 07/16/20 tab nitrofurantoin 100 mg PO BID 5 Days #10 cap 07/30/20 monohydrate/macrocrystals 100 mg capsule amoxicillin 500 mg capsule 1,000 mg PO Q12H 14 Days #56 cap 08/22/20 pantoprazole 40 mg tablet,delayed 40 mg PO BID 30 Days #60 tab 08/22/20 release rifabutin 150 mg capsule 150 mg PO BID 14 Days #28 cap 08/22/20 terconazole 0.8 % vaginal cream 1 appful VAGINAL BEDTIME 3 Days 09/23/20 #20 g Allergies Allergy/AdvReac Type Severity Reaction Status Date / Time No Known Allergies Allergy Verified 09/29/20 17:33 [No Known Allergies*] Review of Systems Review of Systems: Constitutional: No Fever, No Chills ENT/Mouth: No Ear Pain, No Hoarseness, No sore throat Eyes: No Eye Pain, No Swelling, No Redness, No Foreign Body Cardiovascular: No Chest Pain, No SOB Respiratory: No Cough, No Dyspnea Gastrointestinal: No Nausea, No Vomiting, No Diarrhea, No abdominal Pain Genitourinary: No Dysuria, No Hematuria Musculoskeletal: positive joint pain, No Myalgias, No Joint Swelling Skin: No Skin lacerations, No rash Neuro: No Weakness, No Numbness, No Paresthesias, No Loss of Consciousness, No Dizziness, No Headache Psych: No Anxiety/Panic, No Depression Heme/Lymph: no easy bruising, no Lymphadenopathy Endocrine: No Polyuria, No Polydipsia PMFSH Past Medical History Medical History Acute cervical myofascial strain ADHD Bipolar 1 disorder Hepatitis B Left knee pain Migraine headache Panic attacks Syphilis Surgical History History of bilateral salpingectomy History of ectopic History of lumpectomy History of open reduction and internal fixation (ORIF) procedure Family History Family History Sister Cancer Father Medical history unknown Mother Asthma Hepatitis C Hypoglycemia Son In good health Brother In good health Sister In good health Family/Other Breast cancer Social History Social History Household Members: None Alcohol intake: never Cigarettes Per Day: 3 Advance Directives: No Advance Directives Information Provided: No Patient : No Current occupational status: disabled Sexual orientation: Straight/Heterosexual Gender identity: female Physical Exam Vital Signs: Vital Signs: Last Vital Signs Temp 97.6 F 09/29/20 17:33 Pulse 68 09/29/20 17:33 Resp 18 09/29/20 17:33 BP 124/70 09/29/20 17:33 Pulse Ox 96 09/29/20 17:33 Body Mass Index 26.2 Appearance: Alert. Oriented X3. No acute distress. Eyes: Pupils equal, round and reactive to light. ENT: Pharynx normal. Neck: Normal inspection. Neck supple. CVS: Normal heart rate and rhythm. Pulses normal. Respiratory: No respiratory distress. Breath sounds normal. Abdomen: Soft and nontender. Skin: Crush laceration to the right 3rd finger tip, Skin warm and dry. Normal skin color. Normal skin turgor. Extremities: Full range of motion to all extremities and digits, brisk capillary refill to all extremities, no indication of tendon injury. Neuro: No motor deficit. No sensory deficit. Course Course Course Narrative: 45-year-old female presents with a crush injury to the 3rd right finger, with a laceration. Unknown when the last Tdap was updated. Will update today. Will order x-rays. X-rays are negative for acute findings. Laceration was cleaned out, it is too small to suture, it is a flap laceration the lateral aspect of the 3rd tip of the digit. Will clean with Betadine and apply Steri-Strips. Patient does understand to monitor for signs and symptoms of infection. Patient verbalized understanding of and agrees plan of care for discharge home. MDM - Wound/Laceration Differential Diagnosis Differential diagnosis: Likely laceration and avulsion of skin Medical Records Attestation: I reviewed the patient's medical records. Lab Data Attestation: I reviewed the patient's lab results. Imaging Data Finger x-ray: Attestation: I personally reviewed and interpreted this imaging study as follows: Radiologist's impression: EXAMINATION: XR FINGER, RIGHT CLINICAL INFORMATION: Crushing injury of third finger with laceration COMPARISON: None TECHNIQUE: Three views of the right long finger. FINDINGS: There is normal alignment without acute fracture or dislocation. There is a laceration of the nailbed of the third digit. No radiopaque foreign body is visualized. XR/XR finger RT min 2V IMPRESSION: Laceration of the distal aspect of the third digit. No underlying bony injury. No radiopaque foreign body. Discharge Plan Discharge Clinical Impression: Laceration Crush injury to finger Qualifiers: Encounter type: initial encounter Qualified Code(s): S67.10XA - Crushing injury of unspecified finger(s), initial encounter Patient Disposition: Home, Self-Care Instructions: Finger Laceration (ED), Crush Injury (ED) Additional Instructions: You were evaluated for crush injury to the 3rd right finger. Your x-ray is negative for acute findings, there is no fracture or nail bed involvement. We applied Steri-Strips to the avulsion laceration to the tip of your finger. Please keep the Steri-Strips in place, they will fall off on their own. We updated your Tdap vaccine today. Thank you for choosing this emergency department for evaluation. Please follow-up with primary care physician as needed. Return to the emergency department for any new, concerning, or worsening symptoms. Prescriptions: No Action sumatriptan succinate 50 mg tablet 50 mg PO DAILY PRN (Reason: for migraine) Qty: 10 RF: 5 [id number] [Fioricet] 50-300-40 mg capsule 1 cap PO BID 10 Days Qty: 20 RF: 0 cyclobenzaprine 10 mg tablet 10 mg PO BEDTIME PRN (Reason: muscle spasm) 30 Days Qty: 30 RF: 0 clonazepam 1 mg tablet 1 mg PO BID PRN (Reason: Anxiety) RF: 0 pantoprazole [Protonix] 40 mg tablet,delayed release (DR/EC) 40 mg PO BID 30 Days Qty: 60 RF: 6 amoxicillin 500 mg capsule 1,000 mg PO Q12H 14 Days Qty: 56 RF: 0 rifabutin 150 mg capsule 150 mg PO BID 14 Days Qty: 28 RF: 0 trazodone 100 mg tablet 100 mg PO BEDTIME PRN (Reason: Sleep) RF: 0 risperidone 2 mg tablet 2 mg PO BEDTIME RF: 0 escitalopram oxalate 10 mg tablet 10 mg PO DAILY RF: 0 nitrofurantoin monohyd/m-cryst [Macrobid] 100 mg capsule 100 mg PO BID 5 Days Qty: 10 RF: 0 omeprazole 10 mg capsule,delayed release(DR/EC) 10 mg PO DAILY RF: 0 terconazole 0.8 % cream 1 appful vaginal BEDTIME 3 Days Qty: 20 RF: 0 Interventions: ED Discharge Assessment Last Done: 09/29/20 19:25 Discharge Date/Time: 09/29/20 19:26
[2020-09-29] MEDS: Diphth,Pertus(ACell),Tet Adult 0.5 ML SYRINGE IM (19:13)
== END 2020-09-29 19:26 | disposition home or self-care (01) ==
PROVIDERS: Emergency Provider Emergency Medicine; PCP Internal Medicine
DX: S61.212A Laceration without foreign body of right middle finger without damage to nail, initial encounter (principal); W23.1XXA Caught, crushed, jammed, or pinched between stationary objects, initial encounter; Y93.89 Activity, other specified; Y92.810 Car as the place of occurrence of the external cause; Y99.9 Unspecified external cause status
CPT/HCPCS: 73140; 90471; 90715; 99284

== ENCOUNTER → 2020-10-03 11:10 | Outpatient (BNVA) | payer OTHER, SELFPAY | PROVIDERS: PCP Internal Medicine; Visit Provider Urology | DX: R31.29 Other microscopic hematuria (principal) | CPT/HCPCS: 99202 ==

== ENCOUNTER 2020-10-15 09:29 | Outpatient (REF) | payer OTHER, SELFPAY ==
--- NOTE | ~2020-10-15 | XR_ITS ---
EXAMINATION: XR RIBS, RIGHT CLINICAL INFORMATION: Pleural dynamic COMPARISON: None TECHNIQUE: 3 views of the right ribs were obtained. One view chest PA and FINDINGS: Lungs are clear. No consolidation, pneumothorax, or pleural effusion. The cardiomediastinal silhouette and pulmonary vasculature are normal. Osseous structures are unremarkable. Ribs are intact. No fractures are identified. XR/XR ribs RT min 3V w CXR1V IMPRESSION: Unremarkable chest exam. Unremarkable right rib exam.
== END 2020-10-15 09:30 | disposition home or self-care (01) ==
LOC: HO.XRAY 09:29
PROVIDERS: PCP Internal Medicine; Visit Provider Internal Medicine
DX: R07.81 Pleurodynia (principal)
CPT/HCPCS: 71101

== ENCOUNTER → 2020-10-21 15:09 | Outpatient (BNVA) | payer OTHER, SELFPAY | PROVIDERS: PCP Internal Medicine; Visit Provider Urology | DX: R31.29 Other microscopic hematuria (principal); R39.12 Poor urinary stream | CPT/HCPCS: 52000; 99212 ==

== ENCOUNTER 2020-11-17 11:06 | Outpatient (REF) | payer OTHER, SELFPAY ==
--- NOTE | ~2020-11-17 | US_ITS ---
EXAMINATION: ULTRASOUND PELVIS COMPLETE. CLINICAL INFORMATION: Transabdominal and transvaginal imaging of pelvis is performed. COMPARISON: None TECHNIQUE: Ultrasound pelvis 08/06/2020 FINDINGS: On transabdominal ultrasound the uterus is anteverted, anteflexed, measuring 6.8 cm in length, 3.2 cm in AP and 4.1 cm in transverse dimension. The uterus is homogeneous in echotexture. There are small nabothian cysts seen in the cervix. The right ovary measures 2.2 x 1.4 x 1.5 cm and volume 2.4 mL. There is anechoic cysts measuring 0.80 0.76 x 1.01 cm. The left ovary measures 2.7 x 2.0 x 2.8 cm volume 7.9 mL. There is anechoic cyst measuring 1.95 x 1.51 x 1.6 cm. Previously left ovary measured 3.0 x 2.4 x 2.1 cm. There is no free fluid in the cul-de-sac. US/US pelvic complete IMPRESSION: Small nabothian cysts in the cervix. The uterus is unremarkable. Bilateral ovarian cysts. There is no free fluid in the cul-de-sac.
--- NOTE | ~2020-11-17 | US_ITS ---
EXAMINATION: ULTRASOUND PELVIS COMPLETE. CLINICAL INFORMATION: Transabdominal and transvaginal imaging of pelvis is performed. COMPARISON: None TECHNIQUE: Ultrasound pelvis 08/06/2020 FINDINGS: On transabdominal ultrasound the uterus is anteverted, anteflexed, measuring 6.8 cm in length, 3.2 cm in AP and 4.1 cm in transverse dimension. The uterus is homogeneous in echotexture. There are small nabothian cysts seen in the cervix. The right ovary measures 2.2 x 1.4 x 1.5 cm and volume 2.4 mL. There is anechoic cysts measuring 0.80 0.76 x 1.01 cm. The left ovary measures 2.7 x 2.0 x 2.8 cm volume 7.9 mL. There is anechoic cyst measuring 1.95 x 1.51 x 1.6 cm. Previously left ovary measured 3.0 x 2.4 x 2.1 cm. There is no free fluid in the cul-de-sac. US/US transvaginal IMPRESSION: Small nabothian cysts in the cervix. The uterus is unremarkable. Bilateral ovarian cysts. There is no free fluid in the cul-de-sac.
== END 2020-11-17 11:07 | disposition home or self-care (01) ==
LOC: HO.US 11:06
PROVIDERS: Visit Provider Obstetrics & Gynecology
DX: N83.299 Other ovarian cyst, unspecified side (principal)
CPT/HCPCS: 76830; 76856

== ENCOUNTER → 2020-11-24 12:13 | Outpatient (BNVA) | payer OTHER, SELFPAY | PROVIDERS: PCP Internal Medicine; Visit Provider Obstetrics & Gynecology ==

== ENCOUNTER 2020-11-26 10:45 | Outpatient (REF) | payer OTHER, SELFPAY ==
[2020-11-26 11:03] LABS: Glucose Urine UA NEG (NEG); Leukocyte Esterase Urine NEG (NEG); Nitrite Urine NEG (NEG); Specific Gravity - Urine >= 1.030 (1.005-1.025); UACC Culture Trigger NO; Urine Blood 1+ (NEG); Urine Ketones NEG (NEG); Urine Protein NEG (NEG-TRACE)
[2020-11-26 11:05] LABS: Appearance Urine CLEAR; Color Urine YELLOW
[2020-11-26 11:28] LABS: Squamous Epithelial Cell Urine TRACE /LPF; WBC Urine 0-2 /HPF (0-4)
[2020-11-26 11:29] LABS: Calcium Phosphate Crystals Ur TRACE /LPF; Mucus Urine 3+ /LPF
== END 2020-11-26 10:46 | disposition home or self-care (01) ==
LOC: HO.LAB 10:45
PROVIDERS: Nurse Practitioner; PCP Internal Medicine; Visit Provider Internal Medicine
DX: R31.29 Other microscopic hematuria (principal); A04.8 Other specified bacterial intestinal infections; R30.0 Dysuria
CPT/HCPCS: 81001; 81003; 87086; 87338

== ENCOUNTER → 2020-12-09 15:42 | Outpatient (BNVA) | payer OTHER, SELFPAY | PROVIDERS: PCP Internal Medicine; Visit Provider Nurse Practitioner ==

== ENCOUNTER → 2020-12-16 15:05 | Outpatient (BNVA) | payer OTHER, SELFPAY | PROVIDERS: PCP Internal Medicine; Visit Provider Nurse Practitioner ==

== ENCOUNTER 2021-03-16 07:18 | Outpatient (REF) | payer OTHER, SELFPAY | END 2021-03-16 07:19 | disposition home or self-care (01) | LOC: HO.HOSX 07:18 | PROVIDERS: Visit Provider Physician Assistant | DX: Z13.89 Encounter for screening for other disorder (principal) ==

== ENCOUNTER 2021-08-03 09:17 | Outpatient (REF) | payer OTHER, SELFPAY ==
--- NOTE | ~2021-08-03 | MM_ITS ---
EXAMINATION: MM SCREENING DIGITAL BREAST TOMOSYNTHESIS, BILATERAL CLINICAL INFORMATION: Screening. Asymptomatic. The lifetime risk of breast cancer based on the Tyrer-Cuzick Model is 11%. COMPARISON: Mammography: 04/10/2020, 03/28/2019, 02/08/2018; ultrasound right breast 04/04/2019. TECHNIQUE: Digital breast tomosynthesis is performed in both the craniocaudal and mediolateral oblique views along with computer-aided detection (CAD). Synthesized 2D images are generated from the tomosynthesis. Additional left MLO view is provided. FINDINGS: The breasts are heterogeneously dense, which may obscure small masses (ACR BI-RADS breast composition Category c). There are no significant masses, abnormal calcifications, or other abnormalities. There is fibronodular parenchymal pattern with scattered bilateral stable asymmetries similar to prior studies. No developing density or interval architectural abnormality. No significant changes. MM/MM tomosynthesis screening BI IMPRESSION: No mammographic evidence of malignancy. ASSESSMENT: BI-RADS 2: Benign RECOMMENDATION: Routine annual mammography screening. This patient's information was entered into a reminder system with a target due date for their next mammogram.
== END 2021-08-03 09:18 | disposition home or self-care (01) ==
LOC: HO.MAMMO 09:17
PROVIDERS: PCP Internal Medicine; Visit Provider Internal Medicine
DX: Z12.31 Encounter for screening mammogram for malignant neoplasm of breast (principal)
CPT/HCPCS: 77063; 77067

== ENCOUNTER → 2021-08-04 13:01 | Outpatient (BNVA) | payer OTHER, SELFPAY | PROVIDERS: PCP Internal Medicine; Referring Provider Internal Medicine; Visit Provider Nurse Practitioner | DX: K21.9 Gastro-esophageal reflux disease without esophagitis (principal); K27.9 Peptic ulcer, site unspecified, unspecified as acute or chronic, without hemorrhage or perforation; Z86.19 Personal history of other infectious and parasitic diseases; Z79.899 Other long term (current) drug therapy | CPT/HCPCS: 99212 ==

== ENCOUNTER 2021-10-21 10:12 | Outpatient (REF) | payer OTHER, SELFPAY ==
[2021-10-21 10:24] LABS: MANUAL DIFF FLAG NO
[2021-10-21 10:57] LABS: Basophils Percent Auto 0.2 % (0-2); Eosinophils Absolute Auto 0.1 X10*3/uL (0.0-0.4); Eosinophils Percent Auto 1.9 % (0-4); Hematocrit 38.4 % (37.0-47.0); Hemoglobin 13.3 g/dl (12.0-16.0); Imm Gran Abs Auto 0.01 X10*3/uL (0.00-0.03); Imm Gran Pct Auto 0.2 % (0.0-0.4); Lymphocytes Absolute Auto 1.7 X10*3/uL (1.2-4.9); Lymphocytes Percent Auto 35.9 % (20-40); Mean Corpuscular HGB Conc 34.6 g/dl (31.0-35.0); Mean Corpuscular Volume 92.3 fL (80.0-98.0); Mean Platelet Volume 9.2 fL (9.4-12.3); Monocytes Absolute Auto 0.3 X10*3/uL (0.1-1.2); Monocytes Percent Auto 5.7 % (2-11); Neutrophils Absolute Auto 2.6 x10*3/uL (2.0-8.3); Neutrophils Percent Auto 56.1 % (45-73); Platelet Count 321 X10*3/uL (160-400); Red Blood Count 4.16 X10*6/uL (4.20-5.50); Red Cell Distribution Width 11.8 % (11.0-16.0); White Blood Count 4.7 X10*3/uL (4.8-10.8)
[2021-10-21 11:28] LABS: Alanine Aminotransferase 25 U/L (0-31); Albumin Level 4.1 g/dL (3.5-5.0); Alkaline Phosphatase 62 U/L (39-117); Anion Gap 10 (12-20); Aspartate Amino Transferase 16 U/L (5-31); Bilirubin Total 0.6 mg/dL (0.0-1.0); Blood Urea Nitrogen 15 mg/dL (9-16); Calcium 9.1 mg/dL (8.4-10.2); Carbon Dioxide 28 mmol/L (22-29); Chloride 105 mmol/L (96-108); Cholesterol 221 mg/dL; Estimated Glomerular Filt Rate > 60; Glucose Fasting 86 mg/dL (60-99); HDL Cholesterol 50 mg/dL; LDL Cholesterol Calculated 150 mg/dl; Potassium 4.5 mmol/L (3.3-5.1); Sodium 138 mmol/L (135-145); Total Protein 6.8 g/dL (6.5-8.0); Triglycerides 106 mg/dL
[2021-10-21 11:42] LABS: Appearance Urine HAZY; Color Urine YELLOW; Glucose Urine UA NEG (NEG); Leukocyte Esterase Urine NEG (NEG); Nitrite Urine NEG (NEG); PH 5.5 (5.0-8.0); Specific Gravity - Urine >= 1.030 (1.005-1.025); UACC Culture Trigger NO; Urine Blood 2+ (NEG); Urine Ketones NEG (NEG); Urine Protein NEG (NEG-TRACE)
[2021-10-21 11:43] LABS: TSH reflex Free T4 0.55 uIU/mL (0.32-4.0)
[2021-10-21 11:57] LABS: Bacteria Urine TRACE /LPF; Squamous Epithelial Cell Urine 2+ /LPF; WBC Urine 0 /HPF (0-4)
== END 2021-10-21 10:13 | disposition home or self-care (01) ==
LOC: HO.LAB 10:12
PROVIDERS: PCP Internal Medicine; Visit Provider Internal Medicine
DX: Z00.00 Encounter for general adult medical examination without abnormal findings (principal); E55.9 Vitamin D deficiency, unspecified
CPT/HCPCS: 36415; 80053; 80061; 81001; 82306; 84443; 85025

== ENCOUNTER 2021-10-27 10:17 | Outpatient (REF) | payer OTHER, SELFPAY ==
--- NOTE | ~2021-10-27 | XR_ITS ---
EXAMINATION: XR ELBOW, LEFT CLINICAL INFORMATION: Pain COMPARISON: None TECHNIQUE: Three views of the left elbow. FINDINGS: The bones and soft tissues are normal. No fracture or joint effusion. Alignment is anatomic. Joint spaces are maintained. XR/XR elbow LT min 3V IMPRESSION: Unremarkable radiographs of left elbow.
== END 2021-10-27 10:18 | disposition home or self-care (01) ==
LOC: HO.XRAY 10:17
PROVIDERS: PCP Internal Medicine; Visit Provider Internal Medicine
DX: M25.522 Pain in left elbow (principal)
CPT/HCPCS: 73080

== ENCOUNTER 2021-11-20 12:08 | Emergency (ER) | payer OTHER, SELFPAY ==
[2021-11-20 12:38] VITALS: BP 109/75; PULSE 75; RESP 18; TEMP 37.2; O2SAT 98; BMI 35.1
--- NOTE | 2021-11-20 13:26 | ED.BACK ---
HPI - Back Pain/Injury General Chief Complaint: Back Pain/Injury Stated Complaint: pain lower back left side Time Seen by Provider: 11/20/21 13:02 Source: patient Mode of arrival: ambulatory Limitations: no limitations History of Present Illness HPI Narrative: 46-year-old female presents with atraumatic left low back pain that started this morning. Patient had no falls, no twisting, no lifting, no reason for left back pain. Her left back pain is not located in her flank, it is in her high buttock on the left side. No red flag symptoms, no saddle paresthesias, no leg weakness, no incontinence of bowel or bladder, no urinary retention, no fevers, no radiation of pain down her legs Related Data Home Medications Medication Instructions Recorded Confirmed risperidone 2 mg tablet 2 mg PO BEDTIME 02/21/20 10/20/21 trazodone 100 mg tablet 100 mg PO BEDTIME PRN Sleep 02/21/20 10/20/21 clonazepam 1 mg tablet 1 mg PO BID PRN Anxiety 04/21/20 10/20/21 escitalopram oxalate 20 mg tablet 20 mg PO QAM 10/20/21 10/20/21 Previous Rx's Medication Instructions Recorded [id number] 1 cap PO BID severe headache 10 12/02/20 50 mg-300 mg-40 mg capsule days #20 caps (Fioricet) acetaminophen 500 mg tablet 500 mg PO Q6-8H PRN fever or 04/30/21 pain/headaches 30 days #100 tabs hydrocortisone 2.5 % topical 1 appl topical BID PRN itching 08/03/21 ointment #28.35 grams famotidine 40 mg tablet (Pepcid) 40 mg PO DAILY PRN heartburn #30 10/30/21 tabs cyclobenzaprine 5 mg tablet 5 mg PO TID 5 days #15 tabs 11/20/21 ketorolac 10 mg tablet 10 mg PO Q6H 5 days #20 tabs 11/20/21 Allergies Allergy/AdvReac Type Severity Reaction Status Date / Time No Known Allergies Allergy Verified 10/20/21 13:32 [No Known Allergies*] Review of Systems Constitutional: Constitutional: Denies body ache(s), Denies chills, Denies fatigue, Denies fever(s), Denies malaise and Denies weakness Eyes: Eyes: Denies diplopia Cardiovascular: Cardiovascular: Denies chest pain, Denies syncope, Denies leg edema, Denies lightheadedness, Denies Loss of Consciousness, Denies palpitations and Denies dyspnea Respiratory: Respiratory: Denies chest congestion, Denies cough and Denies dyspnea Gastrointestinal: Gastrointestinal: Denies abdominal pain, Denies hematochezia, Denies constipation, Denies fecal incontinence, Denies diarrhea and Denies vomiting Genitourinary: Genitourinary: Denies hematuria, Denies dysuria, Denies pelvic pain, Denies urinary incontinence, Denies urinary hesitancy and Denies urinary urgency Musculoskeletal: Musculoskeletal: Reports back pain Neurologic: Denies confusion, Denies syncope and Denies weakness Psychiatric: Psychiatric: Denies anxiety, Denies confusion and Denies depression Endocrine: Endocrine: Denies fatigue and Denies palpitations PMFSH Past Medical History Medical History ADHD Bipolar 1 disorder Hepatitis B Migraine headache Overweight (BMI 25.0-29.9) Panic attacks Posttraumatic stress disorder Smoker Syphilis Surgical History History of bilateral salpingectomy History of ectopic History of lumpectomy History of open reduction and internal fixation (ORIF) procedure Family History Family History Sister Cancer Father Medical history unknown Mother Asthma Hepatitis C Hypoglycemia Son In good health Brother In good health Sister In good health Family/Other Breast cancer Other Mental health problem Social History Social History Household Members: None Housing: House Alcohol intake: former Patient Tobacco Use Status: Current everyday Tobacco user Cigarettes Per Day: 5 e-Cigarette/Vaping Use: Never Used Second Hand Smoke Exposure: No Advance Directives: No Advance Directives Information Provided: No service: No Current occupational status: disabled Current occupational exposures/hazards: No Sexual orientation: Straight/Heterosexual Gender identity: Female Cognitive needs: No Hearing needs: No Vision needs: Yes Physical Exam Vital Signs: Vital Signs: Last Vital Signs Temp 98.9 F 11/20/21 12:38 Pulse 75 11/20/21 12:38 Resp 18 11/20/21 12:38 BP 109/75 11/20/21 12:38 Pulse Ox 98 11/20/21 12:38 O2 Del Method 11/20/21 12:38 BMI result Body Mass Index 35.1 Const: General: No confusion Nutritional Appearance: well nourished Orientation/consciousness: No confusion Limitations: no limitations Eyes: Conjunctivae: conjunctivae normal Pupils: Equal, round and reactive pupils present EOM: EOMs intact bilaterally Neck: Neck: Yes full ROM, Yes no lymphadenopathy and Yes supple Resp: Effort & Inspection: normal respiratory effort and able to speak in complete sentences Auscultation: clear to auscultation bilaterally, no crackles, no rales, no rhonchi and no wheezes Cardio: Rate: regular rate Rhythm: regular rhythm Heart sounds: S1 normal heart sound present and S2 normal heart sound present GI: Inspection: Yes normal to inspection Palpation (GI): Soft to palpation, nontender, no guarding and not rigid Percussion: Yes normal to percussion Auscultation: normal bowel sounds : General: Yes no CVA tenderness Back/Spine/Pelvis: Back: no CVA tenderness Cervical Spine: normal cervical lordosis, cervical ROM normal, No Cervical spine tenderness, No step off deformity and No cervical ROM abnormal Thoracic/Lumbar Spine: thoraco-lumbar ROM normal, straight leg raise negative bilaterally, No thoracic spinal tenderness and No lumbar spinal tenderness Pelvis: buttock tenderness on the left Skin: General skin exam: no rashes or lesions noted Neuro: General: No confusion Cranial nerves: Yes Equal, round and reactive pupils present Extrem: Right lower extremity: normal to inspection, full ROM and normal capillary refill Left lower extremity: normal to inspection, full ROM and normal capillary refill Psych: Appearance: grossly normal Affect: normal affect Attitude: cooperative Thought process: Normal thought process present Course Course Course Narrative: 46-year-old female presents with atraumatic left low back pain that started this morning. Patient has no red flag symptoms, she has no CVA tenderness, she has a negative bilateral straight leg raise, she has intact lower extremity DTRs, pulses, sensation, and motor strength. Patient is tender to palpate on her upper left buttock. No radiation of pain. I do not think this is a kidney issue, patient has no hematuria, there is no radiation of pain to her abdomen, patient has no CVA tenderness. Will treat with ketorolac and Flexeril, gave return precautions Discharge Plan Discharge Clinical Impression: Left low back pain Patient Disposition: Home, Self-Care Instructions: Back Pain (ED) Additional Instructions: Please take medication as prescribed. Please do not take any ibuprofen containing products while you are taking these medications. Please return to emergency room if you have worsening pain, numbness or tingling the groin, leg weakness, fevers, if you are incontinent of bowel or bladder, or for any other new or concerning symptoms Prescriptions: New ketorolac 10 mg tablet 10 mg PO Q6H 5 Days Qty: 20 0RF cyclobenzaprine 5 mg tablet 5 mg PO TID 5 Days Qty: 15 0RF No Action famotidine [Pepcid] 40 mg tablet 40 mg PO DAILY PRN (Reason: heartburn) Qty: 30 3RF clonazepam 1 mg tablet 1 mg PO BID PRN (Reason: Anxiety) [id number] [Fioricet] 50-300-40 mg capsule 1 cap PO BID 10 Days Qty: 20 0RF acetaminophen 500 mg tablet 500 mg PO Q6-8H PRN (Reason: fever or pain/headaches) 30 Days Qty: 100 1RF escitalopram oxalate 20 mg tablet 20 mg PO QAM hydrocortisone 2.5 % ointment 1 appl topical BID PRN (Reason: itching) Qty: 28.35 0RF trazodone 100 mg tablet 100 mg PO BEDTIME PRN (Reason: Sleep) risperidone 2 mg tablet 2 mg PO BEDTIME
[2021-11-20] MEDS: Ketorolac Tromethamine 30 MG/ML VIAL IM (13:35)
[2021-11-20] MEDS: Cyclobenzaprine HCl 10 MG TABLET PO (13:35)
== END 2021-11-20 13:40 | disposition home or self-care (01) ==
PROVIDERS: Emergency Provider Emergency Medicine Emergency Medical Services; PCP Internal Medicine
DX: M54.50 Low back pain, unspecified (principal); F17.210 Nicotine dependence, cigarettes, uncomplicated
CPT/HCPCS: 72100; 72200; 81001; 81025; 96372; 99282; 99283; 99284; J1885

== ENCOUNTER 2021-11-20 20:51 | Emergency (ER) | payer OTHER, SELFPAY ==
--- NOTE | ~2021-11-20 | XR_ITS ---
EXAMINATION: 1. LUMBAR SPINE. 2. SACROILIAC JOINTS. CLINICAL INFORMATION: Back pain. COMPARISON: CT abdomen and pelvis 06/07/2019 TECHNIQUE: 1. Lumbar spine. 3 views 2. Sacroiliac joints. 3 views FINDINGS: 1. Lumbar spine. Lumbar vertebrae have normal height and alignment. Lumbar disc heights are normal. Normal facet joints. No spondylolysis. 2. Sacroiliac joints. No bony ankylosis or bone erosion. Normal bilateral sacroiliac joints. XR/XR sacroiliac joint 1-2V IMPRESSION: 1. Lumbar spine. Normal lumbar spine. 2. Sacroiliac joints. Normal sacroiliac joints.
--- NOTE | ~2021-11-20 | XR_ITS ---
EXAMINATION: 1. LUMBAR SPINE. 2. SACROILIAC JOINTS. CLINICAL INFORMATION: Back pain. COMPARISON: CT abdomen and pelvis 06/07/2019 TECHNIQUE: 1. Lumbar spine. 3 views 2. Sacroiliac joints. 3 views FINDINGS: 1. Lumbar spine. Lumbar vertebrae have normal height and alignment. Lumbar disc heights are normal. Normal facet joints. No spondylolysis. 2. Sacroiliac joints. No bony ankylosis or bone erosion. Normal bilateral sacroiliac joints. XR/XR lumbar spine 2-3V IMPRESSION: 1. Lumbar spine. Normal lumbar spine. 2. Sacroiliac joints. Normal sacroiliac joints.
[2021-11-20 21:46] VITALS: BP 125/56; PULSE 80; RESP 18; TEMP 36.7; O2SAT 98; BMI 23.0
--- NOTE | 2021-11-20 23:10 | ED_ITS ---
HPI - Back Pain/Injury General Chief Complaint: Back Pain/Injury Stated Complaint: back pain, was here earlier and was discharged Time Seen by Provider: 11/20/21 22:35 Source: patient Mode of arrival: ambulatory Limitations: no limitations History of Present Illness HPI Narrative: 46-year-old female came in for evaluation of low back pain that started since this morning after she woke up from sleep, patient declined any trauma, no lifting, no bending. Pain is severe /10 described as sharp to the left upper buttock area radiating down to the back of the thigh, patient declined any numbness or weakness to the left lower extremities, no urinary incontinence. Patient was seen in the emergency department this morning patient was prescribed ketorolac and Flexeril patient stated that is not helping her symptoms. Related Data Home Medications Medication Instructions Recorded Confirmed risperidone 2 mg tablet 2 mg PO BEDTIME 02/21/20 10/20/21 trazodone 100 mg tablet 100 mg PO BEDTIME PRN Sleep 02/21/20 10/20/21 clonazepam 1 mg tablet 1 mg PO BID PRN Anxiety 04/21/20 10/20/21 escitalopram oxalate 20 mg tablet 20 mg PO QAM 10/20/21 10/20/21 Previous Rx's Medication Instructions Recorded cuizgfhlhl-wdrdqesgrmgeh-uxfbancj 1 cap PO BID severe headache 10 12/02/20 50 mg-300 mg-40 mg capsule days #20 caps (Fioricet) acetaminophen 500 mg tablet 500 mg PO Q6-8H PRN fever or 04/30/21 pain/headaches 30 days #100 tabs hydrocortisone 2.5 % topical 1 appl topical BID PRN itching 08/03/21 ointment #28.35 grams famotidine 40 mg tablet (Pepcid) 40 mg PO DAILY PRN heartburn #30 10/30/21 tabs cyclobenzaprine 5 mg tablet 5 mg PO TID 5 days #15 tabs 11/20/21 ketorolac 10 mg tablet 10 mg PO Q6H 5 days #20 tabs 11/20/21 oxycodone 5 mg tablet 5 mg PO Q8H PRN pain #10 tabs 11/20/21 Allergies Allergy/AdvReac Type Severity Reaction Status Date / Time No Known Allergies Allergy Verified 11/20/21 21:46 [No Known Allergies*] Review of Systems Review of Systems: All other systems are reviewed and are negative Constitutional: Reports as per HPI and Reports no additional constitutional complaints Eyes: Reports as per HPI and Reports no additional eye complaints Reports system reviewed and no additional complaints, except as documented Cardiovascular: Reports as per HPI and Reports no additional cardiovascular complaints Respiratory: Reports as per HPI and Reports no additional respiratory complaints Gastrointestinal: Reports as per HPI and Reports no additional gastrointestinal complaints Genitourinary: Reports no additional female genitourinary complaints Musculoskeletal: Reports no additional musculoskeletal complaints Skin/Breast: Reports system reviewed and no additional complaints, except as docu Psychiatric: Reports no additional psychiatric complaints Endocrine: Reports no additional endocrine complaints Hematologic/Lymphatic: Reports no additional hematologic/lymphatic complaints Allergic/Immunologic: Reports no additional allergic/immunologic complaints Reports system reviewed and no additional complaints, except as documented and Reports Abnormal speech present [facility] Past Medical History Medical History ADHD Bipolar 1 disorder Hepatitis B Migraine headache Overweight (BMI 25.0-29.9) Panic attacks Posttraumatic stress disorder Smoker Syphilis Surgical History History of bilateral salpingectomy History of ectopic History of lumpectomy History of open reduction and internal fixation (ORIF) procedure Family History Family History Sister Cancer Father Medical history unknown Mother Asthma Hepatitis C Hypoglycemia Son In good health Brother In good health Sister In good health Family/Other Breast cancer Other Mental health problem Social History Social History Household Members: None Housing: House Alcohol intake: former Patient Tobacco Use Status: Current everyday Tobacco user Cigarettes Per Day: 5 e-Cigarette/Vaping Use: Never Used Second Hand Smoke Exposure: No Advance Directives: No Advance Directives Information Provided: No service: No Current occupational status: disabled Current occupational exposures/hazards: No Sexual orientation: Straight/Heterosexual Gender identity: Female Cognitive needs: No Hearing needs: No Vision needs: Yes Physical Exam Vital Signs: Vital Signs: Last Vital Signs Temp 98.0 F 11/20/21 21:46 Pulse 80 11/20/21 21:46 Resp 18 11/20/21 21:46 BP 125/56 L 11/20/21 21:46 Pulse Ox 98 11/20/21 21:46 O2 Del Method 11/20/21 21:46 BMI result Body Mass Index 23.0 Vital signs have been reviewed as appeared to be correct. Blood pressure normal. Heart rate normal. Respiration rate normal. Temperature normal. Oxygen saturation normal. Appearance: Alert. Oriented X3. No acute distress. Head: Normal external exam. Normocephalic. Atraumatic. No Abreu signs noted. No raccoon eyes noted Eyes: PERRLA. EOMI. Conjunctiva and sclera normal. Eyelids normal. ENT: TM's Normal. Pharynx normal. Uvula midline. Moist mucous membranes. No trismus noted. No drooling noted. No muffled voice noted. Neck: Normal inspection. Neck supple. FROM. No adenopathy. Thyroid Normal. No meningeal signs. No neck mass noted. CVS: Normal heart rate and rhythm. Heart sound normal. No murmurs noted. Pulses normal throughout. Respiratory: No respiratory distress. Painless inspiration. Breath sounds normal. No wheezes/rales/rhonchi noted. Chest nontender. No accessory muscle usage noted or decreased air movement noted. Abdomen: Soft and nontender. Bowel sounds normal in all 4 quadrants. No distention noted. No organomegaly noted. No visible injury noted. Back: No CVA tenderness. Full range of motion noted. Point of tenderness at the left sacroiliac joint, no step-off, no deformity. Able to ambulate and bear weight in the emergency department. Skin: Skin warm and dry. Normal skin color. Normal skin turgor. No rashes/lesions/lacerations noted. Extremities: No lower extremity edema. Extremities exhibit normal range of motion. Extremities nontender. Neuro: Oriented X 3. Cranial nerve exam: II-XII are grossly intact No motor deficit. No sensory deficit. Reflexes normal. Course Course Course Narrative: 46-year-old female with left sacroiliac joint pain. Seen and evaluated was given ketorolac and Flexeril with no relief. Will add oxycodone bedrest and he ating pad. MDM - Back Pain/Injury Lab Data Attestation: I reviewed the patient's lab results. Labs: Lab Results 11/20/21 11/20/21 Range/Units 23:33 23:33 Urine Color YELLOW Urine Appearance CLEAR Urine pH 6.0 (5.0-8.0) Ur Specific [place] >= 1.030 H (1.005-1.025) Urine Protein NEG (NEG-TRACE) MG/DL Urine Glucose (UA) NEG (NEG) MG/DL Urine Ketones NEG (NEG) MG/DL Urine Blood 2+ H (NEG) Urine Nitrite NEG (NEG) Ur Leukocyte Esterase NEG (NEG) Urine RBC 1-4 (0) /HPF Urine WBC 1-4 (0-4) /HPF Ur Squamous Epith Cells 1+ /LPF Urine Bacteria 2+ /LPF Urine Mucus 3+ /LPF Urine Test NEGATIVE (NEGATIVE) Imaging Data Lumbar spine/sacroiliac joint.: Attestation: I personally reviewed and interpreted this imaging study as follows: Radiologist's impression: 1. Lumbar spine. Normal lumbar spine. 2. Sacroiliac joints. Normal sacroiliac joints.? Discharge Plan Discharge Clinical Impression: Sacroiliac joint pain Patient Disposition: Home, Self-Care Instructions: Sacroiliitis (ED) Prescriptions: New oxycodone 5 mg tablet 5 mg PO Q8H PRN (Reason: pain) Qty: 10 0RF Rx Instructions: Partial Fill upon patient request. No Action famotidine [Pepcid] 40 mg tablet 40 mg PO DAILY PRN (Reason: heartburn) Qty: 30 3RF ketorolac 10 mg tablet 10 mg PO Q6H 5 Days Qty: 20 0RF cyclobenzaprine 5 mg tablet 5 mg PO TID 5 Days Qty: 15 0RF clonazepam 1 mg tablet 1 mg PO BID PRN (Reason: Anxiety) zqaddoxkzh-nytdsqkfdgaer-kyjf [Fioricet] 50-300-40 mg capsule 1 cap PO BID 10 Days Qty: 20 0RF acetaminophen 500 mg tablet 500 mg PO Q6-8H PRN (Reason: fever or pain/headaches) 30 Days Qty: 100 1RF escitalopram oxalate 20 mg tablet 20 mg PO QAM hydrocortisone 2.5 % ointment 1 appl topical BID PRN (Reason: itching) Qty: 28.35 0RF trazodone 100 mg tablet 100 mg PO BEDTIME PRN (Reason: Sleep) risperidone 2 mg tablet 2 mg PO BEDTIME Referrals: Eleazar Evans MD [Primary Care Provider] -
[2021-11-20 23:42] LABS: Appearance Urine CLEAR; Color Urine YELLOW; Glucose Urine UA NEG (NEG); Leukocyte Esterase Urine NEG (NEG); Nitrite Urine NEG (NEG); Specific Gravity - Urine >= 1.030 (1.005-1.025); UACC Culture Trigger NO; Urine Blood 2+ (NEG); Urine Ketones NEG (NEG); Urine Protein NEG (NEG-TRACE)
[2021-11-20 23:43] LABS: UPreg QC Valid YES; Urine Pregnancy NEGATIVE (NEGATIVE)
[2021-11-20 23:48] LABS: Bacteria Urine 2+ /LPF; Mucus Urine 3+ /LPF; Squamous Epithelial Cell Urine 1+ /LPF
== END 2021-11-21 00:42 | disposition home or self-care (01) ==
PROVIDERS: Emergency Provider Emergency Medicine; PCP Internal Medicine
DX: M53.3 Sacrococcygeal disorders, not elsewhere classified (principal); F17.210 Nicotine dependence, cigarettes, uncomplicated
CPT/HCPCS: 72100; 72200; 81001; 81025; 99282

== ENCOUNTER 2021-11-25 07:39 | Outpatient (REF) | payer OTHER, SELFPAY ==
--- NOTE | ~2021-11-25 | XR_ITS ---
EXAMINATION: KNEE X-RAY CLINICAL INFORMATION: Left knee pain COMPARISON: Previous x-rays most recent 2017 2018 TECHNIQUE: Standing AP view of both knees, and lateral and sunrise view of the left knee FINDINGS: Left: Bone alignment is normal. No fracture or dislocation is seen. There is increased sclerosis in the lateral femoral condyle. That appears unchanged from previous exam and likely represents post subchondroplasty. Joint spaces are normal. There is no joint effusion. Standing AP view of the right knee is unremarkable. XR/XR knee LT 2V IMPRESSION: Stable increased sclerosis in the left lateral femoral condyle likely representing post subchondroplasty changes.
--- NOTE | ~2021-11-25 | XR_ITS ---
EXAMINATION: KNEE X-RAY CLINICAL INFORMATION: Left knee pain COMPARISON: Previous x-rays most recent 2017 2018 TECHNIQUE: Standing AP view of both knees, and lateral and sunrise view of the left knee FINDINGS: Left: Bone alignment is normal. No fracture or dislocation is seen. There is increased sclerosis in the lateral femoral condyle. That appears unchanged from previous exam and likely represents post subchondroplasty. Joint spaces are normal. There is no joint effusion. Standing AP view of the right knee is unremarkable. XR/XR knee standing BI IMPRESSION: Stable increased sclerosis in the left lateral femoral condyle likely representing post subchondroplasty changes.
== END 2021-11-25 07:40 | disposition home or self-care (01) ==
LOC: HO.HOSX 07:39
PROVIDERS: Visit Provider Physician Assistant
DX: M54.32 Sciatica, left side (principal); M25.562 Pain in left knee; M25.561 Pain in right knee
CPT/HCPCS: 73560; 73565; 99212

== ENCOUNTER 2021-12-16 10:06 | Outpatient (RCR) | payer OTHER, SELFPAY ==
--- NOTE | 2021-12-16 11:23 | MHC.OT.OEV ---
[address] [phone] F: [phone] Occupational Therapy Evaluation Diagnosis: Left elbow pain Date of Onset: 09/30/21 Date of Surgery: Attending Provider: Dr. Evans Prescribed Treatment: Rafael and nasreen NEVAREZ Follow Up Appointment: History of Current Condition: Pt. reports sudden onset of L elbow pain after picking up a trash bag and throwing it in the bin. Pain has been persistent for approx 2 months without relief. Reports 'burning' pain in lateral elbow and difficulty performing cooking/cleaning. Significant Medical History: None reported Precautions/Contraindications: Pain limiting function Patient Goals: Decrease my elbow pain and use my arm again. Hand Dominance: Mixed Observations: QuickDASH Score: 86.4% Prior Level of Function and Occupation Self Care, Employment, Leisure: Prior to injury, pt. was IND with ADL's/IADLs. Pt. is unemployed Living Situation, Family and/or Social Support: Lives alone. Has family support Current Level of Function and Occupation Self Care, Employment, Leisure: Pt. is IND with ADL's although reports difficulty with homemaking tasks, using a knife to cut food, lifting. Pt. has twin 6 year old autistic step children that she assists in caring for. Sleep: Pt reports pain upon waking up in L elbow Driving: No difficulty driving Vision: WNLs' Pain Assessment Pain Score: 8/10 Pain Scale Used: Numeric (0 - 10) Pain Location and Description: L elbow Aggravating Factors: Worse in the morning, burning pain, lifting, carrying Alleviating Factors: None Has trialed ice, heat, creams, muscle relaxers without relief Skin and Soft Tissue Assessment Skin and Soft Tissue: Comments: No edema or tissue changes (+) TTP left lateral epicondyle Nerve assessment Ulnar Nerve: WFL Median Nerve: WFL Radial Nerve: WFL Comments: Sensory Assessment Temperature: Light Touch: WFL Proprioception: Dexterity Assessment Dexterity: WFL Comments: Functional Dexterity Test R: 21.9 seconds L: 21.8 seconds Special Tests Comments: (+) Carrera test AROM(PROM) Strength Cervical Cervical Flexion: Cervical Extension: Cervical Lateral Flexion: Cervical Rotation: Comments: Shoulder Flexion: WFL's Extension: WFL's Abduction: WFL's Internal Rotation: WFL's External Rotation: WFL's Comments: Flexion: Extension: Abduction: Internal Rotation: External Rotation: Comments: Grossly 4+/5 bilaterally Elbow Flexion: WFL's Extension: WFL's Pronation: WFL's Supination: WFL's Comments: Flexion: Extension: Pronation: Supination: Comments: Grossly 4+/5 bilaterally Wrist Flexion: WFL's Extension: WFL's Ulnar Deviation: WFL's Radial Deviation: WFL's Comments: Flexion: Extension: Ulnar Deviation: Radial Deviation: Comments: Thumb Thumb CMC Flexion: Thumb MCP Flexion: Thumb IP Flexion: Radial Abduction: Palmar Abduction: Palmer (Kapandji 0-10): R: 10 L: 10 Comments: Digits Index MCP: PIP: DIP: Long MCP: PIP: DIP: Ring MCP: PIP: DIP: Small MCP: PIP: DIP: Comments: Able to make full bilateral composite fists without pain Gross Grasp: R: 40# L: 20# Lateral Pinch: R: 9# L: 5# Two-Point Pinch: R: 7# L: 4# Three-Jaw Chad: R: 10# L: 4# Comments: Patient Education Primary Language: Vietnamese 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 Patient demonstrates Patient verbalizes Barriers to Learning: None Readiness for Learning: Accepting Who was educated? Patient Comments: Plan of Care Assessment: Pt. is a 46 y/o female referred to OT with L elbow pain following injury several months ago. S/S are indicative of lateral epicondylitis. Pt. 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 Imelda was educated in role of OT, POC and goals. Pt. would benefit from skilled OT services to address previously noted barriers and assist in return to PLOF. STG Duration: 3 weeks Short Term Goals: Decrease L elbow pain to <4/10 Improve L neuro psych sales specialist strength by 5# IND with orthosis as needed SPV with HEP LTG Duration: 6 weeks Service Parts Driver Goals: Pain free with BADL's/IADL's Improve neuro psych sales specialist strength to 35# IND with progressive HEP Quick DASH score <25% Frequency and Duration: The patient will be seen 2/wk for 6 weeks Treatment Plan: Therapeutic Exercise Therapeutic Activity Home Exercise Program Splinting Patient Education Ultrasound Iontophoresis MHP Cold Packs Soft Tissue Mobilization Kinesiotaping Electronically Signed By: Zunilda Acuna MS OTR/L Reviewed/agree with student documentation: Therapist: Please sign and return to therapist, Thank you for your referral.
--- NOTE | 2022-02-23 15:32 | MHC.OT.DC ---
[address] [phone] F: [phone] Occupational Therapy Discharge Note Provider: Eleazar Evans Diagnosis: Left elbow pain Date of Surgery: Date of Evaluation: 12/16/21 Date of Discharge: 02/23/22 Treatments to Date: 1 Cancellations to Date: No Shows to Date: Discharge Status: Visit Non-compliance Discharge Summary: Pt. is a 46 y/o female referred to OT with L elbow pain following injury several months ago. S/S are indicative of lateral epicondylitis. Pt. 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 Imelda was educated in role of OT, POC and goals. Pt. would benefit from skilled OT services to address previously noted barriers and assist in return to PLOF. 02/23 - Pt. did not follow up with future appointments following OT evaluation. Has not been seen in 2 months, therefore being discharged from services. Electronically Signed By: Zunilda Acuna MS OTR/L Reviewed/agree with student documentation: Therapist: Please Sign and return to therapist, thank you for your referral.
== END 2022-02-23 15:33 | disposition home or self-care (01) ==
LOC: HO.OT 10:06
PROVIDERS: PCP Internal Medicine; Visit Provider Internal Medicine
DX: M25.522 Pain in left elbow (principal)
CPT/HCPCS: 97035; 97165

== ENCOUNTER → 2021-12-22 15:00 | Outpatient (BNVA) | payer OTHER, SELFPAY | PROVIDERS: PCP Internal Medicine; Visit Provider Nurse Practitioner Family | DX: M53.3 Sacrococcygeal disorders, not elsewhere classified (principal); M54.32 Sciatica, left side | CPT/HCPCS: 99202 ==

== ENCOUNTER → 2022-03-09 12:45 | Outpatient (BNVA) | payer OTHER, SELFPAY | PROVIDERS: PCP Internal Medicine; Visit Provider Nurse Practitioner | DX: K21.9 Gastro-esophageal reflux disease without esophagitis (principal); K27.9 Peptic ulcer, site unspecified, unspecified as acute or chronic, without hemorrhage or perforation | CPT/HCPCS: 99212 ==

== ENCOUNTER 2022-03-30 11:00 | Emergency (ER) | payer OTHER, SELFPAY ==
[2022-03-30 11:36] VITALS: BP 119/79; PULSE 96; RESP 18; TEMP 36.7; O2SAT 97; BMI 25.5
--- NOTE | 2022-03-30 11:38 | ED_ITS ---
HPI - General Adult General Chief complaint: Upper Respiratory Symptoms Stated complaint: Flu Symptoms Time Seen by Provider: 03/30/22 12:39 Related Data Home Medications Medication Instructions Recorded Confirmed risperidone 2 mg tablet 2 mg PO BEDTIME 02/21/20 10/20/21 trazodone 100 mg tablet 100 mg PO BEDTIME PRN Sleep 02/21/20 10/20/21 clonazepam 1 mg tablet 1 mg PO BID PRN Anxiety 04/21/20 10/20/21 escitalopram oxalate 20 mg tablet 20 mg PO QAM 10/20/21 10/20/21 Previous Rx's Medication Instructions Recorded dbgpvcuanq-zgeqbprpnoxbg-tetdlqjg 1 cap PO BID severe headache 10 12/02/20 50 mg-300 mg-40 mg capsule days #20 caps (Fioricet) hydrocortisone 2.5 % topical 1 appl topical BID PRN itching 08/03/21 ointment #28.35 grams cyclobenzaprine 5 mg tablet 5 mg PO TID 5 days #15 tabs 11/20/21 ketorolac 10 mg tablet 10 mg PO Q6H 5 days #20 tabs 11/20/21 famotidine 40 mg tablet 40 mg PO BID for heartburn #180 03/09/22 tabs celecoxib 200 mg capsule 200 mg PO BID #60 caps 03/29/22 ondansetron 4 mg disintegrating 4 mg PO Q6H PRN nausea and 03/30/22 tablet vomiting #10 tabs Allergies Allergy/AdvReac Type Severity Reaction Status Date / Time No Known Allergies Allergy Verified 03/30/22 11:36 [No Known Allergies*] PMFSH Past Medical History Medical History (Updated 03/30/22 @ 13:24 by Mehreen Jarvis MD) ADHD Bipolar 1 disorder Hepatitis B Migraine headache Overweight (BMI 25.0-29.9) Panic attacks Posttraumatic stress disorder Smoker Syphilis Surgical History History of bilateral salpingectomy History of ectopic History of esophagogastroduodenoscopy (EGD) History of lumpectomy History of open reduction and internal fixation (ORIF) procedure Family History Family History Sister Cancer Father Medical history unknown Mother Asthma Hepatitis C Hypoglycemia Son In good health Brother In good health Sister In good health Family/Other Breast cancer Other Mental health problem Social History Social History Household Members: None Housing: House Alcohol intake: former Patient Tobacco Use Status: Current everyday Tobacco user Cigarettes Per Day: 5 e-Cigarette/Vaping Use: Never Used Second Hand Smoke Exposure: No service: No Current occupational status: disabled Current occupational exposures/hazards: No Sexual orientation: Straight/Heterosexual Gender identity: Female Cognitive needs: No Hearing needs: No Vision needs: Yes Physical Exam ED Vital Signs: Vital Signs - 24 hr 03/30/22 11:36 Temperature 98.1 F Pulse Rate 96 Respiratory Rate 18 Blood Pressure 119/79 Pulse Oximetry 97 Oxygen Delivery Method Room Air BMI result Body Mass Index 25.5 Course Course Course Narrative: 46F p/w body aches, fatigue, nasal congestion, headaches, sore throat but no ear pain or abd pain and denies N/V/diarrhea but states some burning on urination. VSS reviewed GEN: NAD, appears well HEENT: NC/AT, ears wnl, pharynx wnl, no adenopathy, CVS: RRR, no murmurs LUNGS: CTAB, no wheeze, rhonchi, rales ABD: NT/ND EXT: pink, warm suspect viral - UA, SARS, Upreg Medical Decision Making Lab Data Labs: Lab Results 03/30/22 03/30/22 03/30/22 Range/Units 11:41 11:57 11:57 Urine Color Yellow Urine Appearance Clear Urine pH 6.0 (5.0-9.0) Ur Specific [place] 1.025 (1.005-1.025) Urine Protein Trace (Neg-Trace) mg/dL Urine Glucose (UA) Negative (Negative) mg/dL Urine Ketones Negative (Negative) mg/dL Urine Blood Moderate (2+) H (Negative) Urine Nitrite Negative (Negative) Ur Leukocyte Esterase Negative (Negative) Urine RBC 6-10 H (0-2) /HPF Urine WBC 0-5 (0-5) /HPF Ur Squamous Epith Cells 0-2 (0-2) /HPF Urine Bacteria None Seen (None Seen) Hyaline Casts 0-2 (0-2) /LPF Urine Test NEGATIVE (NEGATIVE) Influenza Type A (PCR) NEGATIVE (Negative) Influenza Type B (PCR) NEGATIVE (Negative) RSV RNA Qual (PCR) NEGATIVE (Negative) SARS-CoV-2 RNA (RT-PCR) POSITIVE A (Negative) Discharge Plan Discharge Clinical Impression: Viral syndrome, Lab test positive for detection of COVID-19 virus Patient Disposition: Home, Self-Care Instructions: Viral Syndrome (ED), COVID-19 (Coronavirus Disease 2019) (ED) Additional Instructions: 1. Recommend euat-xpr-[id number] Tylenol/ibuprofen as needed for body aches, headaches, temperatures greater than 100.4. Increase the amount of water intake. 2. You have been diagnosed with COVID-19 and must isolate for 5 days. Return to the ER for worsening symptoms. Prescriptions: New ondansetron 4 mg tablet,disintegrating 4 mg PO Q6H PRN (Reason: nausea and vomiting) Qty: 10 0RF No Action celecoxib 200 mg capsule 200 mg PO BID Qty: 60 3RF ketorolac 10 mg tablet 10 mg PO Q6H 5 Days Qty: 20 0RF cyclobenzaprine 5 mg tablet 5 mg PO TID 5 Days Qty: 15 0RF clonazepam 1 mg tablet 1 mg PO BID PRN (Reason: Anxiety) vzceekcabf-wzlucvylsgcdt-trxu [Fioricet] 50-300-40 mg capsule 1 cap PO BID 10 Days Qty: 20 0RF escitalopram oxalate 20 mg tablet 20 mg PO QAM hydrocortisone 2.5 % ointment 1 appl topical BID PRN (Reason: itching) Qty: 28.35 0RF trazodone 100 mg tablet 100 mg PO BEDTIME PRN (Reason: Sleep) risperidone 2 mg tablet 2 mg PO BEDTIME famotidine 40 mg tablet 40 mg PO BID Qty: 180 3RF Referrals: Eleazar Evans MD [Primary Care Provider] - Stand Alone Forms: Work/School Release Print Language: Turkmen
[2022-03-30 12:08] LABS: UPreg QC Valid YES; Urine Pregnancy NEGATIVE (NEGATIVE)
[2022-03-30 12:11] LABS: Appearance Urine Clear; Color Urine Yellow; Glucose Urine UA Negative (Negative); Leukocyte Esterase Urine Negative (Negative); Nitrite Urine Negative (Negative); Specific Gravity - Urine 1.025 (1.005-1.025); UMIC TRIGGER UACC YES; Urine Blood Moderate (2+) (Negative); Urine Ketones Negative (Negative); Urine Protein Trace mg/dL (Neg-Trace)
[2022-03-30 12:14] LABS: Bacteria Urine None Seen (None Seen); Hyaline Casts Urine 0-2 /LPF (0-2); Squamous Epithelial Cell Urine 0-2 /HPF (0-2); WBC Urine 0-5 /HPF (0-5)
[2022-03-30 12:32] LABS: Influenza A PCR NEGATIVE (Negative); Influenza B PCR NEGATIVE (Negative); Resp Syncy Virus RNA Qual PCR NEGATIVE (Negative); SARS COV2 PCR INHOUSE POSITIVE (Negative)
== END 2022-03-30 13:31 | disposition home or self-care (01) ==
PROVIDERS: Emergency Provider Student in an Organized Health Care Education/Training Program; PCP Internal Medicine
DX: U07.1 COVID-19 (principal); B34.9 Viral infection, unspecified; Z79.899 Other long term (current) drug therapy
CPT/HCPCS: 0241U; 81001; 81003; 81025; 99282; 99283

== ENCOUNTER 2022-05-18 16:06 | Outpatient (REF) | payer OTHER, SELFPAY ==
[2022-05-18 16:39] LABS: Appearance Urine Clear; Color Urine Yellow; Glucose Urine UA Negative (Negative); Leukocyte Esterase Urine Negative (Negative); Nitrite Urine Negative (Negative); UMIC TRIGGER UACC YES; Urine Blood Small (1+) (Negative); Urine Ketones Negative (Negative); Urine Protein Negative (Neg-Trace)
[2022-05-18 16:52] LABS: Bacteria Urine None Seen (None Seen); Hyaline Casts Urine 0-2 /LPF (0-2); Squamous Epithelial Cell Urine 0-2 /HPF (0-2); WBC Urine 0-5 /HPF (0-5)
== END 2022-05-18 16:07 | disposition home or self-care (01) ==
LOC: HO.LAB 16:06
PROVIDERS: PCP Internal Medicine; Visit Provider Internal Medicine
DX: N39.0 Urinary tract infection, site not specified (principal)
CPT/HCPCS: 81001

== ENCOUNTER 2022-06-30 09:15 | Outpatient (REF) | payer OTHER, SELFPAY ==
[2022-06-30 16:35] LABS: Urine Cytology See Pathology rpt
== END 2022-06-30 09:16 | disposition home or self-care (01) ==
LOC: HO.LAB 09:15
PROVIDERS: PCP Internal Medicine; Visit Provider Nurse Practitioner Family
DX: R30.0 Dysuria (principal); R31.29 Other microscopic hematuria
CPT/HCPCS: 51798; 88112; 99212

== ENCOUNTER 2022-08-09 09:28 | Outpatient (REF) | payer OTHER, SELFPAY ==
--- NOTE | ~2022-08-09 | MM_ITS ---
EXAMINATION: MM SCREENING DIGITAL BREAST TOMOSYNTHESIS, BILATERAL CLINICAL INFORMATION: Screening. Asymptomatic. The lifetime risk of breast cancer based on the Tyrer-Cuzick Model is 11%. COMPARISON: Mammography: 08/03/2021, 04/10/2020, 03/28/2019 TECHNIQUE: Digital breast tomosynthesis is performed in both the craniocaudal and mediolateral oblique views along with computer-aided detection (CAD). Synthesized 2D images are generated from the tomosynthesis. Additional right CC view is provided. FINDINGS: The breasts are heterogeneously dense, which may obscure small masses (ACR BI-RADS breast composition Category c). There is a fibronodular parenchymal pattern is similar to prior exams. There are no significant masses, abnormal calcifications, or other abnormalities. No architectural abnormality. The axilla and skin contours are unremarkable. MM/MM tomosynthesis screening BI IMPRESSION: No mammographic evidence of malignancy. ASSESSMENT: BI-RADS 2: Benign RECOMMENDATION: Routine annual mammography screening. This patient's information was entered into a reminder system with a target due date for their next mammogram.
== END 2022-08-09 09:29 | disposition home or self-care (01) ==
LOC: HO.MAMMO 09:28
PROVIDERS: PCP Internal Medicine; Visit Provider Internal Medicine
DX: Z12.31 Encounter for screening mammogram for malignant neoplasm of breast (principal)
CPT/HCPCS: 77063; 77067

== ENCOUNTER 2022-08-31 09:37 | Outpatient (REF) | payer OTHER, SELFPAY ==
--- NOTE | ~2022-08-31 | US_ITS ---
EXAMINATION: US RETROPERITONEAL LIMITED (RENAL ONLY) CLINICAL INFORMATION: Dysuria. COMPARISON: CT abdomen and pelvis with contrast 04/15/2020. TECHNIQUE: Real-time imaging of the kidneys. FINDINGS: RIGHT KIDNEY: 10.1 x 4.7 x 4.6 cm (SAG x AP x TRV). The kidney is normal in size, contour, and echogenicity. Renal cortical thickness is normal. No renal calculi or hydronephrosis. Benign-appearing 7 mm simple renal cyst, no follow-up imaging recommended. LEFT KIDNEY: 10.5 x 5.5 x 4.4 cm (SAG x AP x TRV). The kidney is normal in size, contour, and echogenicity. Renal cortical thickness is normal. No calculi or focal parenchymal lesions. No hydronephrosis. Left renal pelviectasis. US/US renal BI IMPRESSION: Left renal pelviectasis without maribel hydronephrosis. No nephrolithiasis identified..
== END 2022-08-31 09:38 | disposition home or self-care (01) ==
LOC: HO.US 09:37
PROVIDERS: PCP Internal Medicine; Visit Provider Nurse Practitioner Family
DX: R30.0 Dysuria (principal); R31.29 Other microscopic hematuria
CPT/HCPCS: 76775

== ENCOUNTER 2022-09-08 08:50 | Outpatient (REF) | payer OTHER, SELFPAY ==
--- NOTE | ~2022-09-08 | US_ITS ---
EXAMINATION: US PELVIS LIMITED (BLADDER) CLINICAL INFORMATION: Dysuria. COMPARISON: CT abdomen and pelvis 04/15/2020. Ultrasound abdomen complete 07/23/2018. Renal ultrasound 10/26/2017. TECHNIQUE: Real-time imaging of the bladder. FINDINGS: BLADDER: Well distended and normal. Bilateral ureteral jets are demonstrated. Prevoid bladder volume is 205 mL. Postvoid bladder volume is 10.3 mL. US/US bladder IMPRESSION: 1. Tiny postvoid residual bladder volume. 2. Normal bilateral ureteral jets.
== END 2022-09-08 08:51 | disposition home or self-care (01) ==
LOC: HO.US 08:50
PROVIDERS: PCP Internal Medicine; Visit Provider Nurse Practitioner Family
DX: R30.0 Dysuria (principal)
CPT/HCPCS: 76857

== ENCOUNTER → 2022-09-16 11:19 | Outpatient (BNVA) | payer OTHER, SELFPAY | PROVIDERS: PCP Internal Medicine; Visit Provider Nurse Practitioner Family | DX: R30.0 Dysuria (principal); R31.29 Other microscopic hematuria | CPT/HCPCS: 99212 ==

== ENCOUNTER 2022-10-22 19:50 | Emergency (ER) | payer OTHER, SELFPAY ==
[2022-10-22 20:26] VITALS: BP 121/80; PULSE 96; RESP 18; TEMP 36.4; O2SAT 96; BMI 26.3
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
[2022-10-23 00:21] VITALS: BP 101/63; PULSE 94; RESP 16; TEMP 36.1; O2SAT 98
== END 2022-10-23 00:37 | disposition home or self-care (01) ==
PROVIDERS: Emergency Provider Emergency Medicine Emergency Medical Services; PCP Internal Medicine
DX: S33.5XXA Sprain of ligaments of lumbar spine, initial encounter (principal); V43.52XA Car driver injured in collision with other type car in traffic accident, initial encounter; F17.210 Nicotine dependence, cigarettes, uncomplicated; Y93.89 Activity, other specified; Y92.414 Local residential or business street as the place of occurrence of the external cause; Y99.9 Unspecified external cause status
CPT/HCPCS: 99282; 99283; 99284

== ENCOUNTER 2022-10-26 10:30 | Outpatient (REF) | payer OTHER, SELFPAY ==
--- NOTE | ~2022-10-26 | XR_ITS ---
EXAMINATION: XR CHEST CLINICAL INFORMATION: Other specified symptoms and signs involving the circulatory and respiratory systems. COMPARISON: Chest radiograph dated 08/18/2018. TECHNIQUE: Frontal and lateral views of the chest were obtained. FINDINGS: The heart, great vessels, pulmonary vasculature and mediastinum are normal. The lungs show no focal infiltrate, effusion or pneumothorax. There is mild elevation of the right hemidiaphragm. There is no acute osseous abnormality. XR/XR chest 2V IMPRESSION: No active cardiopulmonary disease.
[2022-10-26 11:17] LABS: MANUAL DIFF FLAG NO
[2022-10-26 11:52] LABS: Basophils Percent Auto 0.2 % (0-2); Eosinophils Absolute Auto 0.1 X10*3/uL (0.0-0.4); Eosinophils Percent Auto 1.2 % (0-4); Hematocrit 38.5 % (37.0-47.0); Hemoglobin 13.1 g/dl (12.0-16.0); Imm Gran Abs Auto 0.03 X10*3/uL (0.00-0.03); Imm Gran Pct Auto 0.5 % (0.0-0.4); Lymphocytes Absolute Auto 1.9 X10*3/uL (1.2-4.9); Lymphocytes Percent Auto 31.1 % (20-40); Mean Corpuscular Hemoglobin 31.4 pg (27.0-33.0); Mean Corpuscular Volume 92.3 fL (80.0-98.0); Mean Platelet Volume 9.3 fL (9.4-12.3); Monocytes Absolute Auto 0.4 X10*3/uL (0.1-1.2); Monocytes Percent Auto 6.1 % (2-11); Neutrophils Absolute Auto 3.6 x10*3/uL (2.0-8.3); Neutrophils Percent Auto 60.9 % (45-73); Platelet Count 295 X10*3/uL (160-400); Red Blood Count 4.17 X10*6/uL (4.20-5.50); Red Cell Distribution Width 11.7 % (11.0-16.0); White Blood Count 5.9 X10*3/uL (4.8-10.8)
[2022-10-26 11:59] LABS: Appearance Urine Clear; Color Urine Yellow; Glucose Urine UA Negative (Negative); Leukocyte Esterase Urine Negative (Negative); Nitrite Urine Negative (Negative); PH 5.5 (5.0-9.0); Specific Gravity - Urine 1.025 (1.005-1.025); UMIC TRIGGER UACC YES; Urine Blood Small (1+) (Negative); Urine Ketones Negative (Negative); Urine Protein Negative (Neg-Trace)
[2022-10-26 12:16] LABS: Bacteria Urine None Seen (None Seen); Hyaline Casts Urine 0-2 /LPF (0-2); RBC Urine 0-2 /HPF (0-2); Squamous Epithelial Cell Urine 0-2 /HPF (0-2); WBC Urine 0-5 /HPF (0-5)
[2022-10-26 12:54] LABS: Alanine Aminotransferase 28 U/L (0-31); Albumin Level 3.9 g/dL (3.5-5.0); Alkaline Phosphatase 63 U/L (39-117); Anion Gap 10 (12-20); Aspartate Amino Transferase 17 U/L (5-31); Bilirubin Total 0.7 mg/dL (0.0-1.0); Blood Urea Nitrogen 16 mg/dL (9-16); Calcium 9.1 mg/dL (8.4-10.2); Carbon Dioxide 28 mmol/L (22-29); Chloride 104 mmol/L (96-108); Cholesterol 205 mg/dL; Estimated Glomerular Filt Rate > 60; Glucose Fasting 93 mg/dL (60-99); HDL Cholesterol 41 mg/dL; LDL Cholesterol Calculated 134 mg/dl; Potassium 3.9 mmol/L (3.3-5.1); Sodium 138 mmol/L (135-145); Total Protein 6.9 g/dL (6.5-8.0); Triglycerides 151 mg/dL
[2022-10-26 13:13] LABS: TSH reflex Free T4 0.63 uIU/mL (0.32-4.0); Vitamin D 25-OH Total 31.3 ng/mL (>30)
== END 2022-10-26 10:31 | disposition home or self-care (01) ==
LOC: HO.LAB 10:30
PROVIDERS: PCP Internal Medicine; Visit Provider Internal Medicine
DX: Z00.00 Encounter for general adult medical examination without abnormal findings (principal); E78.00 Pure hypercholesterolemia, unspecified; E55.9 Vitamin D deficiency, unspecified; K25.9 Gastric ulcer, unspecified as acute or chronic, without hemorrhage or perforation; R09.89 Other specified symptoms and signs involving the circulatory and respiratory systems; F17.200 Nicotine dependence, unspecified, uncomplicated
CPT/HCPCS: 36415; 71046; 80053; 80061; 81001; 81003; 82306; 84443; 85025

== ENCOUNTER 2023-02-11 11:39 | Outpatient (REF) | payer OTHER, SELFPAY ==
[2023-02-11 16:19] LABS: Urine Cytology See Pathology rpt
== END 2023-02-11 11:40 | disposition home or self-care (01) ==
LOC: HO.LNP 11:39
PROVIDERS: PCP Internal Medicine; Visit Provider Nurse Practitioner Family
DX: R31.29 Other microscopic hematuria (principal); N28.1 Cyst of kidney, acquired; F17.210 Nicotine dependence, cigarettes, uncomplicated
CPT/HCPCS: 81003; 88112; 99212

== ENCOUNTER 2023-02-11 11:39 | Outpatient (AMB) | payer OTHER, SELFPAY ==
--- NOTE | 2023-02-11 11:52 | A.OFFVIS_ITS ---
Intake Intake Visit Reasons: 3m follow up Intake Note: Patient is present for follow up dysuria/microhematuria Urology Medications: none Blood Thinner: none Vice President Sales Required: No Accompanied by: Self / Same As Patient Allergies No Known Allergies [No Known Allergies*] Allergy (Verified 02/11/23 12:33) Medication List - Last Reconciled 02/11/23 by WESLEY GreeneP-BC fgsnpqloba-yebyshltzixeu-jhzw 50-300-40 mg (Fioricet) 1 cap PO BID 10 days celecoxib 200 mg PO BID clonazepam 1 mg PO BID PRN cyclobenzaprine 5 mg PO TID 5 days escitalopram oxalate 20 mg PO QAM famotidine 40 mg PO BID lidocaine 5% 1 patch topical DAILY nicotine 1 patch transdermal DAILY 7 days nicotine 1 patch transdermal Q24H 28 days nicotine 1 patch transdermal DAILY 7 days risperidone 2 mg PO BEDTIME tramadol 50 mg PO BID PRN trazodone 100 mg PO BEDTIME PRN HPI HPI Comments History of Present Illness Details Imelda is a pleasant 47-year-old female patient of Dr. Evans. She has a past medical history is hypercholesteremia, smoker, posttraumatic stress disorder, migraines, hep B, syphilis, panic attacks, ADHD, and bipolar. She presents to the office today for follow-up of her microscopic hematuria and lower urinary tract symptoms. When asked reports to be doing and feeling well. Previous workup has included a retroperitoneal ultrasound that showed right kidney with benign appearing 7 mm simple renal cyst, no follow up imaging recommended per radiology report. No calculi or hydronephrosis noted. The left kidney with no lesions, calculi, or hydronephrosis. The bladder is well distended normal. Bilateral ureteral jets are demonstrated. Pre void bladder volume is 205 mL postvoid bladder volume is 10 mL. Patient reports improvement in urinary urgency and bladder pressure since completing low-dose antibiotic therapy. In office urinalysis results reviewed with the patient today. 2+ microscopic hematuria otherwise within normal limits. She reports to be drinking plenty of water daily and feels this has helped her with her bladder pressure. When asked she does report continuing to smoke approximately 2-3 cigarettes per day. She currently denies any bothersome urinary issues or concerns at this time. Discussed at length microscopic hematuria in the setting of nicotine dependence. Discussed near future in office cystoscopy given nicotine dependence and recurrent microscopic hematuria noted on urinalysis. When asked she denies urinary frequency, urinary urgency, hematuria, change in urinary stream, flank pain, fever and or chills. Cytology from last visit 07/22-- Negative for high-grade urothelial carcinoma. Of note patient was seen here previously with Dr. Barillas for microscopic hematuria and note is as follows. Urethral narrowing noted it cystoscopy On questioning did state that her 2nd labor was prolonged This may be the cause of her microscopic hematuria Dilatation appeared to assist today She will call if she develops weak stream again Microscopic hematuria Detected during evaluation with PCP No history of workplace chemical exposures Imaging - 04/20 CT NAD Cytology - NAD PFSH Medical History Pure hypercholesterolemia Smoker Overweight (BMI 25.0-29.9) Posttraumatic stress disorder Migraine headache Hepatitis B Syphilis Panic attacks ADHD Bipolar 1 disorder Surgical History History of bilateral salpingectomy History of ectopic History of esophagogastroduodenoscopy (EGD) History of lumpectomy History of open reduction and internal fixation (ORIF) procedure Family History Sister Cancer Father Medical history unknown Mother Asthma Hepatitis C Hypoglycemia Son In good health Brother In good health Sister In good health Family/Other Breast cancer Other Mental health problem Social History Household Members: None Housing: House Alcohol intake: former Patient Tobacco Use Status: Current everyday Tobacco user Cigarettes Per Day: 5 e-Cigarette/Vaping Use: Never Used Second Hand Smoke Exposure: No service: No Current occupational status: disabled Current occupational exposures/hazards: No Sexual orientation: Straight/Heterosexual Gender identity: Female Cognitive needs: No Hearing needs: No Vision needs: Yes Female Reproductive History Menstrual Age of Menarche: 10 Review of Systems Const All systems reviewed & are unremarkable except as noted in HPI and below Reports no additional complaints Eyes Reports no additional complaints ENT Reports no additional complaints Card Reports as per HPI Resp Reports no additional complaints GI Reports no additional complaints Reports as per HPI Musc Reports no additional complaints Neuro Reports no additional complaints Psych Reports as per HPI Endo Reports no additional complaints Juanpablo/Lymph Reports no additional complaints Aller/Immun Reports no additional complaints Physical Exam Const General: cooperative, healthy appearing, comfortable, no acute distress, well developed, alert and awake Orientation/consciousness: patient oriented x3 Limitations: no limitations HEENT Head: Yes normal to inspection, Yes normocephalic and Yes atraumatic Ears: hearing grossly normal bilaterally Eyes General: appearance normal, both eyes and all related structures Neck Neck: Yes normal visual inspection and Yes trachea midline Chest Chest palpation & inspection: normal inspection of the chest Resp Effort & Inspection: normal respiratory effort and able to speak in complete sentences Cardio Rate: regular rate GI Inspection: Yes normal to inspection General: Yes no CVA tenderness Back/Spine/Pelvis Back: no CVA tenderness Skin General skin exam: no rashes or lesions noted Neuro General: patient oriented x3 Extrem General: Yes normal to inspection Psych Appearance: grossly normal and well kempt Mental Status: mental status grossly normal Speech and movement: Normal speech and movement present and Clear speech present Affect: normal affect Attitude: cooperative Thought process: Normal thought process present Thought content: Normal thought content present Insight: Good insight present (Psych) Judgement: Good judgement present (Psych) Results AMB Urinalysis, Automated UA Leukoctes 0 Jarrod/uL Last Edit by [employer] on 02/11/23 12:17 UA Nitrite Negative Last Edit by [employer] on 02/11/23 12:17 UA Urobilinogen 0.2 mg/dL Last Edit by [employer] on 02/11/23 12:17 UA Protein 0 mg/dL Last Edit by [employer] on 02/11/23 12:17 UA pH 6.0 Last Edit by [employer] on 02/11/23 12:17 UA Blood 80 Bernard/uL Last Edit by [employer] on 02/11/23 12:17 UA Specific [place] 1.010 Last Edit by [employer] on 02/11/23 12:17 UA Ketone Negative Last Edit by [employer] on 02/11/23 12:17 UA Bilirubin 0 mg/dL Last Edit by [employer] on 02/11/23 12:17 UA Glucose 0 mg/dL Last Edit by [employer] on 02/11/23 12:17 Results Reviewed Results Reviewed: Laboratory Last Values Urine pH (Auto) 6.0 02/11/23 12:15 Specific [place] (Auto) 1.010 02/11/23 12:15 Urine Protein (Auto) 0 mg/dL 02/11/23 12:15 Glucose (UA)(Auto) 0 mg/dL 02/11/23 12:15 Urine Ketones (Auto) Negative 02/11/23 12:15 Urine Blood (Auto) 80 Bernard/uL 02/11/23 12:15 Urine Nitrite (Auto) Negative 02/11/23 12:15 Urine Bilirubin (Auto) 0 mg/dL 02/11/23 12:15 Urine Urobilinogen (Auto) 0.2 mg/dL 02/11/23 12:15 Leukocyte Esterase (Auto) 0 Jarrod/uL 02/11/23 12:15 Assessment & Plan Assessment & Plan (1) Renal cyst: Code(s): N28.1 - Cyst of kidney, acquired (2) Microscopic hematuria: Code(s): R31.29 - Other microscopic hematuria (3) Smoker: Code(s): F17.200 - Nicotine dependence, unspecified, uncomplicated Plan In office urinalysis results reviewed with the patient today; as noted above. Discussed at length potential causes for microscopic hematuria. Discussed further microscopic hematuria workup in the setting of nicotine dependence; cytology, CT urogram, and in office cystoscopy; patient declines at this time Patient currently denies any bothersome urinary issues or concerns at this time. Discussed, educated, encouraged on the importance of drinking plenty of water daily. Follow-up in 6 months; if not sooner with any issues, concerns, and or questions. Orders: Orders AMB Urinalysis Automated 02/11/23 Z13.9 - Encounter for screening, unspecified Urine Cytology 02/11/23 R31.29 - Other microscopic hematuria Patient Instructions: The patient had an opportunity to ask questions regarding the treatment plan. All questions were answered. Physical exam, labs, and imaging were discussed and reviewed in detail. As well as risks, benefits, and discussion of treatment choices. No major barriers to understanding were identified. The patient expressed understanding and agreement with the above treatment plan. The patient was made aware they should contact our office by phone for worsening of their current condition, the appearance of new symptoms, or with any questions or concerns. Compliance is encouraged with any medications and follow up testing that is ordered. It is a privilege to be allowed the opportunity to participate in? your urological care.? Again, if you have any questions or concerns If you have any questions or concerns please do not hesitate to contact me. The office is [phone]. This note is constructed using voice recognition software. While every effort has been made to ensure accuracy toolmaker helper errors may have been included. Yours sincerely, WOJCIECH Greene Coding Level of Care Code Est Pt Level 3 (57950) Diagnoses Renal cyst N28.1 Microscopic hematuria R31.29 Smoker F17.200
== END 2023-02-11 12:29 | disposition home or self-care (01) ==
PROVIDERS: PCP Internal Medicine; Visit Provider Nurse Practitioner Family
DX: N28.1 Cyst of kidney, acquired (principal); R31.29 Other microscopic hematuria; F17.200 Nicotine dependence, unspecified, uncomplicated
CPT/HCPCS: 99213

== ENCOUNTER 2023-04-04 10:36 | Outpatient (REF) | payer OTHER, SELFPAY ==
[2023-04-05 11:00] LABS: CT PCR NOT DETECTED (Not Detect.); NG PCR NOT DETECTED (Not Detect.)
[2023-04-05 14:26] LABS: BV Int Neg Control Negative (Negative); BV Int Pos Control Positive (Positive)
== END 2023-04-04 10:37 | disposition home or self-care (01) ==
LOC: HO.LNP 10:36
PROVIDERS: PCP Internal Medicine; Visit Provider Advanced Practice Midwife
DX: Z01.419 Encounter for gynecological examination (general) (routine) without abnormal findings (principal); Z20.2 Contact with and (suspected) exposure to infections with a predominantly sexual mode of transmission; F17.210 Nicotine dependence, cigarettes, uncomplicated; Z71.6 Tobacco abuse counseling
CPT/HCPCS: 0353U; 87480; 87510; 87660

== ENCOUNTER 2023-04-04 10:36 | Outpatient (AMB) | payer OTHER, SELFPAY ==
[2023-04-04 11:03] VITALS: BMI 25.2
--- NOTE | 2023-04-04 11:03 | MHC.OFFVIS ---
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: No Information Interpreted: non-clinical & clinical Drug Abuse Worker: Drug Abuse Worker Present (John) Allergies No Known Allergies [No Known Allergies*] Allergy (Verified 04/04/23 11:06) Medication List - Last Reconciled 04/04/23 by Devorah Francis CNM [id number] [id number] mg (Fioricet) 1 cap PO BID 10 days celecoxib 200 mg PO BID clonazepam 1 mg PO BID PRN cyclobenzaprine 5 mg PO TID 5 days escitalopram oxalate 20 mg PO QAM famotidine 40 mg PO BID risperidone 2 mg PO BEDTIME tramadol 50 mg PO BID PRN trazodone 100 mg PO BEDTIME PRN Is last menstrual period known: Yes Last menstrual period: 03/25/23 Post menopausal: No 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 She admits to smoking about 5 cigarettes a day she says her other doctors have told her to quit she is going to work on quitting in the next year. She had been referred to Urology for blood in her urine but she says they gave her a medication which would not let her sleep at night so she told the doctor that she is not going to take it anymore and the soon as she stopped it she had no trouble sleeping anymore she says that she was also recommended to cut down on coffee but she only drinks 1 cup a day. Her has two autistic twins that they are now raising together and she says they are a handful. She has no worries about STDs. She says that she had stopped getting regular periods sometime ago and only got a period about every 6 or 7 months and had not had 1 in that length of time and then it came on Thanksgiving it lasted the normal amount a time but it was heavy. It felt like a normal period to her she sometimes gets hot flashes. She has says her tubes were removed individually after 2 different ectopic pregnancies. She recently had her mammogram she feels she eats a balanced diet and drinks milk. She wonders if she should take vitamins. [facility] Medical History Pure hypercholesterolemia Smoker Overweight (BMI 25.0-29.9) Posttraumatic stress disorder Migraine headache Hepatitis B Syphilis Panic attacks ADHD Bipolar 1 disorder Surgical History History of esophagogastroduodenoscopy (EGD) History of ectopic History of open reduction and internal fixation (ORIF) procedure History of lumpectomy History of bilateral salpingectomy Family History Sister Cancer Father Medical history unknown Mother Asthma Hepatitis C Hypoglycemia Son In good health Brother In good health Sister In good health Family/Other Breast cancer Other Mental health problem Social History Household Members: None Housing: House Alcohol intake: former Patient Tobacco Use Status: Current everyday Tobacco user Cigarettes Per Day: 5 e-Cigarette/Vaping Use: Never Used Second Hand Smoke Exposure: No service: No Current occupational status: disabled Current occupational exposures/hazards: No Sexual orientation: Straight/Heterosexual Gender identity: Female Cognitive needs: No Hearing needs: No Vision needs: Yes Female Reproductive History Menstrual Age of Menarche: 10 Date of last menstrual period: 03/25/23 control method: other (tubal ligation) Total pregnancies: 15 Full term: 2 Number of Living Children: 2 Ab spontaneous: 13 Ectopics: 1 Date of last pap smear: 02/22/20 (negative) Physical Exam Vital Signs: BMI result Body Mass Index 25.2 Const General: healthy appearing, comfortable, no acute distress, well developed and alert Nutritional Appearance: average body habitus Orientation/consciousness: patient oriented x3 Limitations: no limitations HEENT Head: Yes normocephalic Neck Neck: Yes normal visual inspection Chest Chest palpation & inspection: normal inspection of the chest Breast/axilla inspection: normal inspection of the breasts and normal inspection of the axillae Breast/axilla palpation: normal palpation of the breasts and normal palpation of the axillae Resp Effort & Inspection: normal respiratory effort GI Inspection: Yes normal to inspection, No Abdominal wall edema and No distended Palpation (GI): Soft to palpation and nontender General: Yes bladder normal to palpation External Female Exam: normal external appearance and normal appearance of the urethra Speculum Exam - Vagina: normal appearance of the vagina, normal palpation and normal vaginal discharge Speculum Exam - Cervix: normal appearance of the cervix, normal palpation and nontender Bimanual exam- vagina & uterus: normal bimanual exam, normal palpation, uterine size normal, bladder normal to palpation, consistency normal, normal palpation, uterine mobility normal, uterine shape normal, No Cervical tenderness present, non-tender and no cervical motion tenderness Bimanual Exam- Adnexa, other: normal adnexae, no masses, normal and No adnexal tenderness Neuro General: patient oriented x3 Assessment & Plan Assessment & Plan (1) Well woman exam with routine gynecological exam: Code(s): Z01.419 - Encounter for gynecological examination (general) (routine) without abnormal findings (2) Cigarette smoker motivated to quit: Code(s): F17.210 - Nicotine dependence, cigarettes, uncomplicated (3) Cervical cancer screening: Code(s): Z12.4 - Encounter for screening for malignant neoplasm of cervix Plan -----Discussed in this visit the following: healthy balanced diet, regular and consistent exercise, getting recommended health screens, doing the best she can for her particular health concerns, kegel exercises, pap smear screening and followup recommendations, mammography screening and SBE, normal changes in cycles in her life stage--- . Reviewed her plan to quit smoking and encouraged her to follow-up on it when she feels ready but not to wait too long she said she has a goal that the next time I see her she will be smoking. Reviewed dietary intake patient to be sure she gets enough calcium in her diet if she wanted to take a multivitamin as well that could be fine . Per review per MA no history of abnormal Paps and last Pap was negative in 2019 so her next Pap would be in 2024. I did discuss the option of doing a pelvic ultrasound just to see if everything was okay and she thought about it but she decided it is not necessary discussed yohana menopausal patterns and that often women can miss a period in the lead up to menopause and that generally it is not good to go be be on 3 months. Though we would not call it menopause until she has passed a full year without a. reviewed other symptoms to expect including vaginal dryness and hot flashes. Orders: Orders Bacterial Vaginosis Panel Today Z20.2 - Contact with and (suspected) exposure to infections with a predominantly sexual mode of transmission CT NG by PCR Today Z20.2 - Contact with and (suspected) exposure to infections with a predominantly sexual mode of transmission Coding Level of Care Code Est Pt Prev Care 40-64y(07296) Diagnoses Well woman exam with routine gynecological exam Z01.419 Cigarette smoker motivated to quit F17.210 Cervical cancer screening Z12.4
== END 2023-04-04 11:47 | disposition home or self-care (01) ==
LOC: HO.HWS 10:36
PROVIDERS: PCP Internal Medicine; Visit Provider Advanced Practice Midwife
DX: Z01.419 Encounter for gynecological examination (general) (routine) without abnormal findings (principal); F17.210 Nicotine dependence, cigarettes, uncomplicated; Z12.4 Encounter for screening for malignant neoplasm of cervix
CPT/HCPCS: 99396

== ENCOUNTER 2023-07-01 09:23 | Outpatient (AMB) | payer OTHER, SELFPAY ==
--- NOTE | 2023-07-01 09:34 | MHC.OFFVIS ---
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 Patient reports that she hit her knee a little over a week ago and has been experiencing an increase in pain. States difficulty with stair use, walking and standing. Patient is s/p left knee internal fixation & knee on 11/17/16 NE. No relief with ibuprofen. Allergies No Known Allergies [No Known Allergies*] Allergy (Verified 07/01/23 09:53) Medication List - Last Reconciled 07/01/23 by Segun Wood PA-C [id number] 50-300-40 mg (Fioricet) 1 cap PO BID 10 days celecoxib 200 mg PO BID clonazepam 1 mg PO BID PRN cyclobenzaprine 5 mg PO TID 5 days escitalopram oxalate 20 mg PO QAM famotidine 40 mg PO BID risperidone 2 mg PO BEDTIME tramadol 50 mg PO BID PRN trazodone 100 mg PO BEDTIME PRN HPI BILLER-LT knee pain HPI Details 47-year-old female who presents to the office today for evaluation of left knee pain s/p hitting her knee about a week ago. She currently states she has worsening pain in her left knee which is aggravated with stair use, standing and walking. She also c/o limping. She finds no relief with ibuprofen, Motrin or warm compress. She has a history of left knee ORIF and , 11/17/[address] Blake. [facility] Medical History Pure hypercholesterolemia Smoker Overweight (BMI 25.0-29.9) Posttraumatic stress disorder Migraine headache Hepatitis B Syphilis Panic attacks ADHD Bipolar 1 disorder Surgical History History of esophagogastroduodenoscopy (EGD) History of ectopic History of open reduction and internal fixation (ORIF) procedure History of lumpectomy History of bilateral salpingectomy Family History Sister Cancer Father Medical history unknown Mother Asthma Hepatitis C Hypoglycemia Son In good health Brother In good health Sister In good health Family/Other Breast cancer Other Mental health problem Social History Household Members: None Housing: House Alcohol intake: former Patient Tobacco Use Status: Current everyday Tobacco user Cigarettes Per Day: 5 e-Cigarette/Vaping Use: Never Used Second Hand Smoke Exposure: No service: No Current occupational status: disabled Current occupational exposures/hazards: No Sexual orientation: Straight/Heterosexual Gender identity: Female Cognitive needs: No Hearing needs: No Vision needs: Yes Female Reproductive History Menstrual Age of Menarche: 10 Review of Systems Const All systems reviewed & are unremarkable except as noted in HPI and below Physical Exam Vital Signs: BMI result Body Mass Index 25.2 Extrem Other: Left knee: Skin intact, no erythema or joint effusion. Tenderness along the medial and lateral joint line. Full ROM with crepitus. Negative Freddy?s. No ligamentous laxity. NVI. Results Reviewed Results Reviewed: Xrays were obtained in the office today and personally reviewed by me of the left knee show medial and PF oa Assessment & Plan Assessment & Plan (1) Osteoarthritis of left knee: Code(s): M17.12 - Unilateral primary osteoarthritis, left knee Qualifiers: Osteoarthritis type: primary Qualified Code(s): M17.12 - Unilateral primary osteoarthritis, left knee Plan We discussed options which include PT, NSAIDs and injections. The patient will defer on the injection today and proceed with PT and NSAIDs. We will also get a prior approval for compound pain cream. If symptoms persist, the patient will contact me for an injection, otherwise, PRN. Orders: Orders XR knee standing BI 07/01/23 M25.561 - Pain in right knee, M25.562 - Pain in left knee PT Evaluation and Treatment 07/01/23 M17.12 - Unilateral primary osteoarthritis, left knee XR knee LT 2V 07/01/23 M25.562 - Pain in left knee Patient Instructions: Scribed for Segun Wood PA-C, by Chang Sepulveda medical laboratory technical officer, on 07/01/2023 at 9:45 AM JOE. Segun Gonzalez PA-C, have personally reviewed and agree with the information entered by the scribe. Coding Level of Care Code Est Pt Level 3 (74628) Diagnoses Primary osteoarthritis of left knee M17.12 Osteoarthritis type: primary
[2023-07-01 09:51] VITALS: BMI 25.2
== END 2023-07-01 10:26 | disposition home or self-care (01) ==
PROVIDERS: PCP Internal Medicine; Visit Provider Physician Assistant
DX: M17.12 Unilateral primary osteoarthritis, left knee (principal)
CPT/HCPCS: 99213

== ENCOUNTER 2023-07-01 11:55 | Outpatient (REF) | payer OTHER, SELFPAY ==
--- NOTE | ~2023-07-01 | XR_ITS ---
EXAMINATION: XR KNEE, LEFT XR KNEE AP STANDING CLINICAL INFORMATION: Right knee pain. COMPARISON: November 25, 2021. TECHNIQUE: Four views of the left knee. AP bilateral standing view of the knees was obtained. FINDINGS: Osteochondral defect and associated sclerosis involving the left lateral femoral condyle appear unchanged. Question small left knee joint effusion. No fracture identified. Alignment is anatomic. Joint spaces appear maintained. No abnormal soft tissue calcification. Frontal view of the right kidney appears unremarkable. XR/XR knee LT 2V IMPRESSION: Osteochondral defect and associated sclerosis involving the left lateral femoral condyle appear unchanged compared with November 25, 2021. Question small left knee joint effusion.
--- NOTE | ~2023-07-01 | XR_ITS ---
EXAMINATION: XR KNEE, LEFT XR KNEE AP STANDING CLINICAL INFORMATION: Right knee pain. COMPARISON: November 25, 2021. TECHNIQUE: Four views of the left knee. AP bilateral standing view of the knees was obtained. FINDINGS: Osteochondral defect and associated sclerosis involving the left lateral femoral condyle appear unchanged. Question small left knee joint effusion. No fracture identified. Alignment is anatomic. Joint spaces appear maintained. No abnormal soft tissue calcification. Frontal view of the right kidney appears unremarkable. XR/XR knee standing BI IMPRESSION: Osteochondral defect and associated sclerosis involving the left lateral femoral condyle appear unchanged compared with November 25, 2021. Question small left knee joint effusion.
== END 2023-07-01 11:56 | disposition home or self-care (01) ==
LOC: HO.HOSX 11:55
PROVIDERS: Visit Provider Physician Assistant
DX: M17.12 Unilateral primary osteoarthritis, left knee (principal); M25.561 Pain in right knee; Z79.899 Other long term (current) drug therapy
CPT/HCPCS: 73560; 73565; 99212

== ENCOUNTER 2023-09-06 10:12 | Outpatient (REF) | payer OTHER, SELFPAY ==
--- NOTE | ~2023-09-06 | MM_ITS ---
EXAMINATION: MM SCREENING DIGITAL BREAST TOMOSYNTHESIS, BILATERAL CLINICAL INFORMATION: Screening. Asymptomatic. COMPARISON: Mammography: 08/09/2022, 08/03/2021, 04/10/2020, 03/28/2019 TECHNIQUE: Digital breast tomosynthesis is performed in both the craniocaudal and mediolateral oblique views along with computer-aided detection (CAD). Synthesized 2D images are generated from the tomosynthesis. FINDINGS: The breasts are heterogeneously dense, which may obscure small masses (ACR BI-RADS breast composition Category c). Parenchymal pattern again has a diffusely fibronodular pattern, similar to prior exams. This is likely on the basis of fibrocystic changes. Prior ultrasounds have shown numerous cysts. There are numerous circumscribed isodense oval and round masses in both breasts, consistent with waxing and waning cysts. There are no suspicious masses, suspicious grouped calcifications, or regions of architectural distortion. The overall parenchymal pattern is unchanged. There are no skin or axillary abnormalities. MM/MM tomosynthesis screening BI IMPRESSION: No mammographic evidence of malignancy. Stable examination. ASSESSMENT: BI-RADS BI-RADS 2 - Benign Findings RECOMMENDATION: Routine annual mammography screening. 1 year F/U This examination should not preclude the clinical evaluation of a suspicious palpable abnormality. This patient's information was entered into a reminder system with a target due date for their next mammogram.
== END 2023-09-06 10:13 | disposition home or self-care (01) ==
LOC: HO.MAMMO 10:12
PROVIDERS: PCP Internal Medicine; Visit Provider Internal Medicine
DX: Z12.31 Encounter for screening mammogram for malignant neoplasm of breast (principal)
CPT/HCPCS: 77063; 77067

== ENCOUNTER → 2023-09-06 10:30 | Outpatient (BNV) | payer OTHER, SELFPAY | PROVIDERS: PCP Internal Medicine; Visit Provider Radiology Diagnostic Radiology | DX: Z12.31 Encounter for screening mammogram for malignant neoplasm of breast (principal) | CPT/HCPCS: 77063; 77067 ==

== ENCOUNTER 2023-10-06 10:31 | Outpatient (AMB) | payer OTHER, SELFPAY ==
[2023-10-06 10:38] VITALS: BP 122/68; PULSE 89; TEMP 36.7; O2SAT 99; BMI 26.4
--- NOTE | 2023-10-06 10:38 | AM.OFFWIN_ITS ---
Intake Vital Signs 10/06/23 10:38 Height 5 ft 3 in Weight 149 lb BMI 26.4 BP 122/68 Blood Pressure Location Lt brachial Position Sitting Pulse 89 Pulse Source Pulse Oximeter Temp 98.1 F Temp Source Temporal Artery Scan Pulse Oximetry (%) 99 Oxygen Delivery Method Room Air Intake Visit Reasons: EP Throat pain/ear-headache, Hurts to swallow Intake Note: pt is here today for throat pain ear and headache hurts to swallow started 1 week ago Patient Tobacco Use Status: Current everyday Tobacco user Allergies No Known Allergies [No Known Allergies*] Allergy (Verified 10/06/23 10:42) Do you need a note to return to daycare/school/sports/work: No HPI HPI Comments History of Present Illness Details 48 y/o female patient who [facility] to [facility] in clinic with c/o throat pain, trouble swallowing, itchy and dry eyes. [facility] Medical History Pure hypercholesterolemia Smoker Overweight (BMI 25.0-29.9) Posttraumatic stress disorder Migraine headache Hepatitis B Syphilis Panic attacks ADHD Bipolar 1 disorder Surgical History History of esophagogastroduodenoscopy (EGD) History of ectopic History of open reduction and internal fixation (ORIF) procedure History of lumpectomy History of bilateral salpingectomy Family History Sister Cancer Father Medical history unknown Mother Asthma Hepatitis C Hypoglycemia Son In good health Brother In good health Sister In good health Family/Other Breast cancer Other Mental health problem Social History Household Members: None Housing: House Alcohol intake: former Patient Tobacco Use Status: Current everyday Tobacco user Cigarettes Per Day: 5 e-Cigarette/Vaping Use: Never Used Second Hand Smoke Exposure: No service: No Current occupational status: disabled Current occupational exposures/hazards: No Sexual orientation: Straight/Heterosexual Gender identity: Female Cognitive needs: No Hearing needs: No Vision needs: Yes Female Reproductive History Menstrual Age of Menarche: 10 Review of Systems Const All systems reviewed & are unremarkable except as noted in HPI and below Physical Exam Vital Signs: Last Vital Signs Temp 98.1 F 10/06/23 10:38 Pulse 89 10/06/23 10:38 BP 122/68 10/06/23 10:38 Pulse Ox 99 10/06/23 10:38 Oxygen Delivery Method Room Air 10/06/23 10:38 BMI result Body Mass Index 26.4 Const General: comfortable and no acute distress Orientation/consciousness: patient oriented x3 HEENT Head: Yes normocephalic Ears: external ears normal and TM abnormal bulging and with fluid behind the TM bilateral; not retracted General nose exam: Abnormal mucous membranes and turbinates present boggy and erythematous Face and sinus: Yes sinuses nontender Mouth: moist mucous membranes Throat: Yes posterior oropharynx normal Eyes Eyelids: Yes eyelids normal Conjunctivae: conjunctivae normal Pupils: Equal, round and reactive pupils present EOM: EOMs intact bilaterally Resp Effort & Inspection: normal respiratory effort and able to speak in complete sentences Auscultation: clear to auscultation bilaterally Cardio Rate: regular rate Rhythm: regular rhythm Neuro General: patient oriented x3, gait normal and moves all extremities Cranial nerves: Yes Equal, round and reactive pupils present Psych Speech and movement: Normal speech and movement present Results AMB Rapid Strep AMB Rapid Strep Negative Last Edit by JOSE LUIS Nolan on 10/06/23 11:1 4 Results Reviewed Results Reviewed: Laboratory Last Values Strep Scn Rapid Clinic Negative 10/06/23 11:14 Assessment & Plan Assessment & Plan (1) Allergic rhinitis: Code(s): J30.9 - Allergic rhinitis, unspecified Qualifiers: Allergic rhinitis seasonality: seasonal Allergic rhinitis trigger: pollen Qualified Code(s): J30.1 - Allergic rhinitis due to pollen Plan: - Negative Rapid strep - Cetirizine BID Orders: Orders AMB Rapid Strep Screen Today Z13.9 - Encounter for screening, unspecified Medications: New 2 cetirizine (Zyrtec) TAKE DIRECTED 10 mg PO DAILY PRN 90 tabs 0RF allergy symptoms J30.1 - Allergic rhinitis due to pollen Coding Level of Care Code Est Pt Level 3 (76821) Diagnoses Seasonal allergic rhinitis due to pollen J30.1 Allergic rhinitis seasonality: seasonal Allergic rhinitis trigger: pollen Time Spent (min) 15
== END 2023-10-06 11:17 | disposition home or self-care (01) ==
PROVIDERS: PCP Internal Medicine; Visit Provider Nurse Practitioner Family
DX: Z13.9 Encounter for screening, unspecified (principal); J30.1 Allergic rhinitis due to pollen
CPT/HCPCS: 87880; 99213

== ENCOUNTER 2023-10-08 19:36 | Emergency (ER) | payer OTHER, SELFPAY ==
[2023-10-08 19:59] VITALS: BP 138/89; PULSE 104; RESP 20; TEMP 37.7; O2SAT 96; BMI 26.3
[2023-10-08 20:15] LABS: IDNOW Serial# 58CA691E; Strep A Nucleic Acid Positive (Negative)
--- NOTE | 2023-10-08 20:19 | ED_ITS ---
HPI - General Adult General Chief complaint: General Medical Stated complaint: throat and ear pain Time Seen by Provider: 10/08/23 20:19 Source: patient Mode of arrival: ambulatory Limitations: no limitations History of Present Illness ED Provider: Hitesh Rodriguez PA-C HPI narrative: 48-year-old female with history of cigarette smoking, osteoarthritis, HLD, history of H pylori, ADHD, bipolar, GERD, migraines, ovarian cyst, peptic ulcer disease who presents to the ER for evaluation of sore throat for the last 4 days. It has been worsening and is now radiating to left ear. She was seen at urgent care a couple of days ago and was started on sertraline with no improvement. She reports pain with swallowing. She denies any neck swelling, fevers, chest pain, shortness of breath. No one else at home is ill. MD complaint: Sore throat and ear pain Onset (ago): day(s) (4) Location: head and mouth Severity: moderate Quality: stabbing Pain Consistency: constant Exacerbating factors: eating Associated symptoms: denies other symptoms Treatments prior to arrival: none Related Data Home Medications ?Medication ?Instructions ?Recorded ?Confirmed risperidone 2 mg tablet 2 mg PO BEDTIME 02/21/20 07/01/23 trazodone 100 mg tablet 100 mg PO BEDTIME PRN Sleep 02/21/20 07/01/23 clonazepam 1 mg tablet 1 mg PO BID PRN Anxiety 04/21/20 07/01/23 escitalopram oxalate 20 mg tablet 20 mg PO QAM 10/20/21 07/01/23 Previous Rx's ?Medication ?Instructions ?Recorded cyclobenzaprine 5 mg tablet 5 mg PO TID 5 days #15 tabs 11/20/21 celecoxib 200 mg capsule 200 mg PO BID #60 caps 08/13/22 famotidine 40 mg tablet 40 mg PO BID for heartburn #180 08/19/22 tabs vrjoujjdgu-stkpkpvgfmcet-irsfaohz 1 cap PO BID severe headache 10 02/08/23 50 mg-300 mg-40 mg capsule days #20 caps (Fioricet) tramadol 50 mg tablet 50 mg PO BID PRN pain #20 tabs 08/01/23 cetirizine 10 mg tablet (Zyrtec) 10 mg PO DAILY PRN allergy 10/06/23 symptoms #90 tabs amoxicillin 500 mg tablet 500 mg PO BID #20 tabs 10/08/23 ibuprofen 600 mg tablet 600 mg PO Q8H PRN fever or pain 10/08/23 #10 tabs Allergies Allergy/AdvReac Type Severity Reaction Status Date / Time No Known Allergies Allergy Verified 10/08/23 19:59 [No Known Allergies*] Review of Systems Review of Systems: Yes all other systems are reviewed and are negative PMFSH Past Medical History Medical History Pure hypercholesterolemia Smoker Overweight (BMI 25.0-29.9) Posttraumatic stress disorder Migraine headache Hepatitis B Syphilis Panic attacks ADHD Bipolar 1 disorder Surgical History History of esophagogastroduodenoscopy (EGD) History of ectopic History of open reduction and internal fixation (ORIF) procedure History of lumpectomy History of bilateral salpingectomy Family History Family History Sister Cancer Father Medical history unknown Mother Asthma Hepatitis C Hypoglycemia Son In good health Brother In good health Sister In good health Family/Other Breast cancer Other Mental health problem Social History Social History Household Members: None Housing: House Alcohol intake: former Patient Tobacco Use Status: Current everyday Tobacco user Cigarettes Per Day: 5 e-Cigarette/Vaping Use: Never Used Second Hand Smoke Exposure: No Advance Directives: No Advance Directives Information Provided: Yes service: No Current occupational status: disabled Current occupational exposures/hazards: No Sexual orientation: Straight/Heterosexual Gender identity: Female Cognitive needs: No Hearing needs: No Vision needs: Yes Physical Exam ED Vital Signs: Vital Signs - 24 hr 10/08/23 19:59 Temperature 99.8 F Pulse Rate 104 H Respiratory Rate 20 Blood Pressure 138/89 Pulse Oximetry 96 Oxygen Delivery Method Room Air BMI result Body Mass Index 26.3 Appearance: Alert. Oriented X3. No acute distress. Head: normocephalic, atraumatic. Eyes: Normal inspection, nonicteric sclerae ENT: Pharynx with moist mucous membranes, significant posterior erythema with moderate bilateral, tonsillar swelling, no exudate, uvula midline. Normal voice, handling secretions normally. Neck: Normal inspection. Neck supple. Mild anterior cervical lymphadenopathy, no swelling CVS: Normal heart rate and rhythm. Pulses normal. Respiratory: No respiratory distress. Breath sounds normal. Skin: Skin warm and dry. Normal skin color. Normal skin turgor. No rashes. Extremities: No lower extremity edema. No joint swelling. Neuro/psych: Oriented X 3. Grossly normal, nonfocal Medications Administered Discontinued Medications Generic Name Dose Route Start Last Admin Trade Name Denisha PRN Reason Stop Dose Admin Amoxicillin 500 mg 10/08/23 20:19 10/08/23 20:25 Amoxicillin 500 Mg Capsule PO 10/08/23 20:20 500 mg ONCE ONE Administration Ibuprofen 600 mg 10/08/23 20:19 10/08/23 20:25 Ibuprofen 600 Mg Tablet PO 10/08/23 20:20 600 mg ONCE ONE Administration Lidocaine HCl 15 ml 10/08/23 20:19 10/08/23 20:25 Lidocaine Hcl Viscous 2 % 15 Ml Solution MUCOUS MEM 10/08/23 20:20 15 ml ONCE ONE Administration Medical Decision Making Medical Decision Making [facility] Narrative: 40-year-old female presents to the ER for evaluation of sore throat and left ear pain for the last 4 days. Exam is consistent with strep pharyngitis, sig nificant pharyngeal posterior erythema without evidence of abscess. Vital signs are stable. She is nontoxic appearing. She tested positive for strep throat today. She was given 1st dose of amoxicillin, NSAID, viscous lidocaine. Differential Diagnosis Differential Diagnoses: The differential diagnosis associated with the presentation includes strep, covid, flu, rsv, other viral syndrome, bronchitis, pneumonia, no evidence of peritonsillar abcsess or retropharyngeal abscess Lab Data [facility] Lab Attestation statement: I reviewed the patient's lab results. Labs: Lab Results 10/08/23 Range/Units 20:06 S. pyogenes GrpA MAXIMO Positive A (Negative) External Record Review External record reviewed: Prior outpatient labs Prescription Management I considered prescription management with: Pain Medication and Antibiotic Discharge Plan Discharge Clinical Impression: Strep pharyngitis Patient Disposition: Home, Self-Care Instructions: Strep Throat (DC) Additional Instructions: You tested positive for strep throat today. Take the prescribed antibiotics as directed, complete the entire course and do not miss any doses Recommend warm salt water gargles 3 times per day. Take the prescribed ibuprofen as needed for pain or fever. Also recommend Tylenol 1000 mg every 8 hours. Drink plenty of fluids. Follow-up with your doctor as needed. If you develop new or worsening symptoms call 911 or come back to the ER for further evaluation. Prescriptions: New amoxicillin 500 mg tablet 500 mg PO BID Qty: 20 0RF ibuprofen 600 mg tablet 600 mg PO Q8H PRN (Reason: fever or pain) Qty: 10 0RF No Action celecoxib 200 mg capsule 200 mg PO BID Qty: 60 3RF famotidine 40 mg tablet 40 mg PO BID Qty: 180 3RF jbowsmnila-jwjbjjdqqcbog-kzfc [Fioricet] 50-300-40 mg capsule 1 cap PO BID 10 Days Qty: 20 0RF tramadol 50 mg tablet 50 mg PO BID PRN (Reason: pain) Qty: 20 0RF cyclobenzaprine 5 mg tablet 5 mg PO TID 5 Days Qty: 15 0RF clonazepam 1 mg tablet 1 mg PO BID PRN (Reason: Anxiety) escitalopram oxalate 20 mg tablet 20 mg PO QAM cetirizine [Zyrtec] 10 mg tablet 10 mg PO DAILY PRN (Reason: allergy symptoms) Qty: 90 0RF Rx Instructions: TAKE DIRECTED trazodone 100 mg tablet 100 mg PO BEDTIME PRN (Reason: Sleep) risperidone 2 mg tablet 2 mg PO BEDTIME Referrals: Eleazar Evans MD [Primary Care Provider] - Print Language: Hungarian
[2023-10-08] MEDS: Ibuprofen 600 MG TABLET PO (20:25)
[2023-10-08] MEDS: Amoxicillin 500 MG CAPSULE PO (20:25)
[2023-10-08] MEDS: Lidocaine HCl Viscous 2 % 15 ML SOLUTION MUCOUS MEM (20:25)
[2023-10-08 20:48] VITALS: BP 138/89; PULSE 104; RESP 20; TEMP 37.7; O2SAT 96
[2023-10-08 22:37] LABS: Influenza A PCR NEGATIVE (Negative); Influenza B PCR NEGATIVE (Negative); Resp Syncy Virus RNA Qual PCR NEGATIVE (Negative); SARS COV2 PCR INHOUSE NEGATIVE (Negative)
== END 2023-10-08 20:49 | disposition home or self-care (01) ==
PROVIDERS: Emergency Provider Student in an Organized Health Care Education/Training Program; PCP Internal Medicine
DX: J02.0 Streptococcal pharyngitis (principal); H92.02 Otalgia, left ear; Z03.818 Encounter for observation for suspected exposure to other biological agents ruled out
CPT/HCPCS: 0241U; 87651; 99283

== ENCOUNTER 2024-01-06 13:49 | Outpatient (AMB) | payer OTHER, SELFPAY ==
[2024-01-06 13:51] VITALS: BP 102/70; PULSE 77; O2SAT 97; BMI 26.4
--- NOTE | 2024-01-06 13:51 | MHC.PC.OV ---
Vital Signs 01/06/24 13:51 Height 5 ft 3 in Weight 149 lb BMI 26.4 BP 102/70 Blood Pressure Location Lt brachial Position Sitting Pulse 77 Pulse Source Pulse Oximeter Pulse Oximetry (%) 97 Oxygen Delivery Method Room Air Intake Visit Reasons: Annual Exam Home Health Billing Specialist Required: No Accompanied by: Self / Same As Patient Allergies No Known Allergies [No Known Allergies*] Allergy (Verified 01/06/24 14:32) Medication List - Last Reconciled 01/08/24 by Eleazar Evans MD acetaminophen (Pain Relief (acetaminophen)) 500 mg PO Q6H PRN 30 days ifkofpqtsg-barhsxoizckdc-vaeq 50-300-40 mg (Fioricet) 1 cap PO BID 10 days cetirizine (Zyrtec) 10 mg PO DAILY PRN clonazepam 1 mg PO BID PRN cyclobenzaprine 5 mg PO TID 5 days escitalopram oxalate 20 mg PO QAM famotidine 40 mg PO BID ibuprofen 600 mg PO Q8H PRN risperidone 2 mg PO BEDTIME tramadol 50 mg PO BID PRN trazodone 100 mg PO BEDTIME PRN Tobacco use date assessed: 01/06/24 Dental Screening Dental Screen Date: 01/06/24 Did you have a dental visit in the last 12 months?: Yes Did you have a dental problem in the last 6 months where you did not have access to dental care?: No Was dental information given to patient?: Patient has dentist HPI Annual Exam HPI Details Patient comes in today for her annual physical examination States that she continues to experience recurrent abdominal discomfort and at times, pain States that she used to take Ibuprofen for her joint pains and low back pain but has since stopped and has been taking OTC Tylenol instead as she found out that her stomach often feels worse after taking NSAIDs She is scheduled again to see GI early next month for follow up Adds that she's had several skin tags and hyperpigmented lesions around her neck area for a while now and some of these lesions sometimes get irritated and bother her a lot and she would like to see dermatology to have these removed as much as possible States that she feels okay otherwise She denies any headaches or dizziness Denies any chest pains, no SOB No nausea/vomiting, no abdominal pain No change in bowel habits noted She denies any acute urinary symptoms Needs her Rx for Acetaminophen and Tramadol refilled She has not yet had her screening colonoscopy done - she was referred to GI for this last year but she backed out and did not schedule her appointment She had her annual mammogram done a few months ago in August 2023 - mammogram was normal She is scheduled for her next gynecology appointment and pap smear in April 2024 [facility] Medical History Pure hypercholesterolemia Smoker Overweight (BMI 25.0-29.9) Posttraumatic stress disorder Migraine headache Hepatitis B Syphilis Panic attacks ADHD Bipolar 1 disorder Surgical History History of esophagogastroduodenoscopy (EGD) History of ectopic History of open reduction and internal fixation (ORIF) procedure History of lumpectomy History of bilateral salpingectomy Family History Sister Cancer Father Medical history unknown Mother Asthma Hepatitis C Hypoglycemia Son In good health Brother In good health Sister In good health Family/Other Breast cancer Other Mental health problem Social History Household Members: None Housing: House Alcohol intake: former Patient Tobacco Use Status: Current everyday Tobacco user Cigarettes Per Day: 5 e-Cigarette/Vaping Use: Never Used Second Hand Smoke Exposure: No service: No Current occupational status: disabled Current occupational exposures/hazards: No Sexual orientation: Straight/Heterosexual Gender identity: Female Cognitive needs: No Hearing needs: No Vision needs: Yes Female Reproductive History Menstrual Age of Menarche: 10 Questionnaire PHQ-9 Over the last 2 weeks, how often have you been bothered by any of the following problems? 1. Little interest or pleasure in doing things: not at all 2. Feeling down, depressed, or hopeless: not at all 3. Trouble falling or staying asleep, or sleeping too much: not at all 4. Feeling tired or having little energy: not at all 5. Poor appetite or overeating: not at all 6. Feeling bad about yourself - or that you are a failure or have let yourself or your family down: not at all 7. Trouble concentrating on things, such as reading the newspaper or watching television: not at all 8. Moving or speaking so slowly that other people could have noticed. Or the opposite - being so fidgety or restless that you have been moving around a lot more than usual: not at all 9. Thoughts that you would be better off or of hurting yourself in some way: not at all Total score: 0 Depression Screening Interpretation: Negative Depression Screening Done: Yes 25113 - PHQ-9 Billing: Yes Source: Developed by Drs. Sammy Saleh, Karissa Alonzo, Spike Howard and colleagues, with an educational maryana from [employer]. Thrive Questionnaire Date Thrive assessed: 01/06/24 I am a: Patient What is your living situation today?: I have a steady place to live Within the past 12 months, did the food you bought not last and you didn't have the money to get more?: Never true Within the past 12 months, did you worry whether your food would run out before you got money to buy more?: Never true Do you have trouble paying for medicines?: No Do you have trouble getting transportation to medical appointments?: No Do you have trouble paying your heating and electricity bill?: No Do you have trouble taking care of your child, family member or friend?: No Do you have trouble with day-to-day activities such as bathing, preparing meals, shopping, managing finances, etc.?: No Are you currently unemployed and looking for a job?: No Are you interested in more education?: No Please select the resources that you would like help with: None Currently or been in a relationship where the following occur: No concerns reported THRIVE Score: 0 AUDIT C Alcohol Use Questionnaire (AUDIT-C) 1. How often do you have a drink containing alcohol?: Never 3. How often do you have six or more drinks on one occasion?: Never Total Score: 0 Score Reviewed/Action Taken: Yes JONAS-7 AMB Questionnaire JONAS-7 Date JONAS - 7 assessed: 01/06/24 Feeling nervous, anxious, or on edge: 0 = Not at all Not being able to stop or control worryin = Not at all Worrying too much about different things: 0 = Not at all Trouble relaxin = Not at all Being so restless that it is hard to sit still: 0 = Not at all Becoming easily annoyed or irritable: 0 = Not at all Feeling afraid as if something awful might happen: 0 = Not at all Total JONAS-7 score (0-4 normal; 5-9 mild; 10-14 moderate; 15-21 severe): 0 Source: Developed by Drs. Sammy Saleh, Karissa Alonzo, Spike Howard and colleagues, with an educational maryana from [employer]. Review of Systems Const Denies chills, Denies fatigue, Denies fever(s), Denies headache(s) and Denies malaise Eyes Denies blurry vision, Denies change in vision, Denies irritation and Denies itchy eyes ENT Denies dysphagia, Denies dizziness, Denies otalgia, Denies headache(s), Denies nasal congestion, Denies neck pain, Denies odynophagia, Denies sinus pain and Denies sore throat Card Denies chest pain, Denies rapid heart rate, Denies irregular heart rhythm, Denies palpitations and Denies dyspnea Resp Denies chest congestion, Denies cough, Denies dyspnea and Denies wheezing GI Reports abdominal pain (recurrent), Reports bloating (frequent), Denies constipation, Denies dysphagia, Denies heartburn, Denies diarrhea, Denies nausea, Denies odynophagia and Denies vomiting Denies hematuria, Denies urinary frequency, Denies dysuria, Denies urinary incontinence and Denies urinary urgency Musc Reports back pain (over the lower back, recurrent), Denies arthralgias, Denies joint swelling, Denies muscle weakness and Denies neck pain Skin/Breast Denies breast pain, Denies breast mass, Denies change in pigmentation, Denies lesions, Denies rash and Denies unusual bruising Neuro Denies dizziness, Denies headache(s) and Denies paresthesias Psych Denies anxiety and Denies depression Endo Denies fatigue and Denies palpitations Juanpablo/Lymph Denies easy bruising Aller/Immun Denies itchy eyes and Denies wheezing Physical exam (Primary Care) Vital Signs: Last Vital Signs Pulse 77 01/06/24 13:51 BP 102/70 01/06/24 13:51 Pulse Ox 97 01/06/24 13:51 Oxygen Delivery Method Room Air 01/06/24 13:51 BMI result Body Mass Index 26.4 Tobacco/Smoking Status: Tobacco use Status Tobacco use date assessed 01/06/24 01/06/24 13:58 Patient Tobacco Use Status Current everyday Tobacco 01/06/24 13:58 e-Cigarette/Vaping Use Never Used 01/06/24 13:58 PHQ-9: PHQ-9 Score PHQ-9: Total score 0 01/06/24 14:25 Depression Screening Interpretation: Negative Thrive Assessment: Date of Thrive Assessment Date Thrive assessed 01/06/24 01/06/24 13:58 Currently or been in a relationship where the following occur: No concerns reported Const General: no acute distress, alert and awake Orientation/consciousness: patient oriented x3 HENMT Head: Yes normocephalic and Yes atraumatic Ears: external ears normal, TM's normal bilaterally and EAC's normal General nose exam: No nasal discharge present Face and sinus: Yes normal facial exam and Yes sinuses nontender Teeth and gingiva: dentition normal Throat: Yes posterior oropharynx normal and Yes tonsils normal (no TP congestion) Eyes Eyelids: Yes eyelids normal Conjunctivae: conjunctivae normal Pupils: Equal, round and reactive pupils present EOM: EOMs intact bilaterally Neck Neck: Yes no lymphadenopathy and Yes supple Thyroid: Thyroid normal Resp Auscultation: clear to auscultation bilaterally, no rales and no wheezes Cardio Rate: regular rate Rhythm: regular rhythm Heart sounds: no murmurs GI Palpation (GI): Soft to palpation, Tenderness to palpation present (GI) (mild) in the epigastrum, no guarding, not rigid, No hepatosplenomegaly present and No Rebound tenderness present Auscultation: normal bowel sounds General: Yes no CVA tenderness Back/Spine/Pelvis Back: no CVA tenderness Thoracic/Lumbar Spine: lumbar spinal tenderness Skin Lesions: no lesions Rashes: no rashes Neuro General: patient oriented x3, moves all extremities, no focal motor deficits and CN's II-XI intact bilaterally Cranial nerves: Yes Equal, round and reactive pupils present Cognition (Neuro): normal cognition Gait exam (Neuro): Normal gait present Extrem General: Yes no clubbing, cyanosis or edema Assessment and Plan Assessment & Plan (1) Annual physical exam: Code(s): Z00.00 - Encounter for general adult medical examination without abnormal findings Plan: Check labs She was referred for screening colonoscopy last year but she did not keep her appt as she is hesitant to get this done After discussion, she now agrees (again) to go for the procedure - referral to GI again placed She is up-to-date with her annual mammogram and gynecology exam/pap smear and her next appt with gynecology is in April 2024 (2) Pure hypercholesterolemia: Code(s): E78.00 - Pure hypercholesterolemia, unspecified Plan: She is reminded that her cholesterol levels were still elevated on her labs done last year in September 2022 - total cholesterol was at 205 and LDL cholesterol was at 134 mg/dl although they have improved slightly from her 2021 numbers Reinforced low cholesterol diet Will recheck her labs and fasting lipids AMBER for follow up (3) GERD (gastroesophageal reflux disease): Comment: Did not tolerate pantoprazole well Code(s): K21.9 - Gastro-esophageal reflux disease without esophagitis Qualifiers: Esophagitis presence: without esophagitis Qualified Code(s): K21.9 - Gastro-esophageal reflux disease without esophagitis Plan: (+) few gastric erosions seen on EGD done by Dr. Turner a couple of years ago Dietary restrictions reinforced Continue Famotidine 40 mg BID PRN Follow up with GI as scheduled (4) Migraine headache: Code(s): G43.909 - Migraine, unspecified, not intractable, without status migrainosus Qualifiers: Migraine type: without aura Status migrainosus presence: with status migrainosus Intractability: not intractable Qualified Code(s): G43.001 - Migraine without aura, not intractable, with status migrainosus Plan: Stable lately Reinforced avoidance of migraine triggers Continue Fioricet 1 tablet BID PRN (5) Low back pain: Code(s): M54.50 - Low back pain, unspecified Qualifiers: Chronicity: unspecified Back pain laterality: bilateral Sciatica presence: without sciatica Qualified Code(s): M54.50 - Low back pain, unspecified Plan: (+) Hx of SI joint pain Continue Tramadol 50 mg BID PRN and Cyclobenzaprine 5 mg TID PRN; also has Lidocaine 5% patches to use QD PRN Per request, will also send in Rx for Acetaminophen 500 mg Q 6 hours PRN as she can no longet take Ibuprofen due to her GI issues Reinforced activity and weight-lifting restrictions to avoid aggravating her low back pain (6) Cutaneous skin tags: Code(s): L91.8 - Other hypertrophic disorders of the skin Plan: Per request, will refer her to dermatology for further evaluation and management (7) ADHD: Code(s): F90.9 - Attention-deficit hyperactivity disorder, unspecified type Qualifiers: Attention deficit-hyperactivity disorder type: unspecified Qualified Code(s): F90.9 - Attention-deficit hyperactivity disorder, unspecified type Plan: Follow up with psychiatry as scheduled (8) Bipolar 1 disorder: Code(s): F31.9 - Bipolar disorder, unspecified Plan: Continue Risperidone 2 mg Q HS Follow-up with Psychiatry as scheduled (9) Posttraumatic stress disorder: Code(s): F43.10 - Post-traumatic stress disorder, unspecified Plan: Continue Escitalopram 20 mg QD, Clonazepam 1 mg BID PRN and Trazodone 100 mg Q HS Follow up with psychiatry as scheduled (10) Smoker: Code(s): F17.200 - Nicotine dependence, unspecified, uncomplicated Plan: Counseled again on smoking cessation (11) Overweight (BMI 25.0-29.9): Code(s): E66.3 - Overweight Plan: Reinforced diet/exercise as tolerated/lose weight (12) Colon cancer screening: Code(s): Z12.11 - Encounter for screening for malignant neoplasm of colon Plan: Will refer her AGAIN to GI for screening colonoscopy Plan Follow up in 6 months Orders: Orders Complete Blood Count Auto Diff 01/06/24 D64.9 - Anemia, unspecified, Z00.00 - Encounter for general adult medical examination without abnormal findings UA CC w/rflx Micro + Cult 01/06/24 R30.0 - Dysuria, Z00.00 - Encounter for general adult medical examination without abnormal findings Comprehensive [place]. Panel Fast 01/06/24 E78.00 - Pure hypercholesterolemia, unspecified, Z00.00 - Encounter for general adult medical examination without abnormal findings Lipid Panel 01/06/24 E78.00 - Pure hypercholesterolemia, unspecified, Z00.00 - Encounter for general adult medical examination without abnormal findings TSH reflex Free T4 01/06/24 E78.00 - Pure hypercholesterolemia, unspecified, Z00.00 - Encounter for general adult medical examination without abnormal findings Vitamin D 25-OH Total 01/06/24 E55.9 - Vitamin D deficiency, unspecified, Z00.00 - Encounter for general adult medical examination without abnormal findings Referrals Dermatology Referral L91.8 - Other hypertrophic disorders of the skin Gastroenterology Referral Z12.11 - Encounter for screening for malignant neoplasm of colon Medications: New acetaminophen (Pain Relief (acetaminophen)) 500 mg PO Q6H 30 days PRN 120 tabs 2RF fever or pain Refilled tramadol 50 mg PO BID PRN 20 tabs 0RF pain Coding Level of Care Code Est Pt Prev Care 40-64y(54441) Diagnoses Annual physical exam Z00.00 Pure hypercholesterolemia E78.00 Gastroesophageal reflux disease without esophagitis K21.9 Esophagitis presence: without esophagitis Migraine without aura and with status migrainosus, not intractable G43.001 Migraine type: without aura Status migrainosus presence: with status migrainosus Intractability: not intractable Bilateral low back pain without sciatica, unspecified chronicity M54.50 Chronicity: unspecified Back pain laterality: bilateral Sciatica presence: without sciatica Cutaneous skin tags L91.8 Attention deficit hyperactivity disorder (ADHD), unspecified ADHD type F90.9 Attention deficit-hyperactivity disorder type: unspecified Bipolar 1 disorder F31.9 Posttraumatic stress disorder F43.10 Smoker F17.200 Overweight (BMI 25.0-29.9) E66.3 Colon cancer screening Z12.11
== END 2024-01-06 14:28 | disposition home or self-care (01) ==
PROVIDERS: PCP Internal Medicine; Visit Provider Internal Medicine
DX: Z00.00 Encounter for general adult medical examination without abnormal findings (principal); E78.00 Pure hypercholesterolemia, unspecified; K21.9 Gastro-esophageal reflux disease without esophagitis; G43.001 Migraine without aura, not intractable, with status migrainosus; M54.50 Low back pain, unspecified; L91.8 Other hypertrophic disorders of the skin; F90.9 Attention-deficit hyperactivity disorder, unspecified type; F43.10 Post-traumatic stress disorder, unspecified
CPT/HCPCS: 99396

== ENCOUNTER 2024-01-31 10:38 | Outpatient (REF) | payer OTHER, SELFPAY ==
[2024-01-31 12:45] LABS: Influenza A PCR NEGATIVE (Negative); Influenza B PCR NEGATIVE (Negative); Resp Syncy Virus RNA Qual PCR NEGATIVE (Negative); SARS COV2 PCR INHOUSE NEGATIVE (Negative)
== END 2024-01-31 10:39 | disposition home or self-care (01) ==
LOC: HO.LAB 10:38
PROVIDERS: Absent Provider Internal Medicine; PCP Internal Medicine; Visit Provider Nurse Practitioner
DX: J98.8 Other specified respiratory disorders (principal); K21.9 Gastro-esophageal reflux disease without esophagitis; K27.9 Peptic ulcer, site unspecified, unspecified as acute or chronic, without hemorrhage or perforation
CPT/HCPCS: 0241U; 99212

== ENCOUNTER 2024-01-31 10:38 | Outpatient (AMB) | payer OTHER, SELFPAY ==
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
[2024-01-31 10:49] VITALS: BP 121/61; PULSE 84; BMI 25.8
== END 2024-01-31 11:04 | disposition home or self-care (01) ==
PROVIDERS: PCP Internal Medicine; Visit Provider Nurse Practitioner
DX: K21.9 Gastro-esophageal reflux disease without esophagitis (principal)
CPT/HCPCS: 99213

== ENCOUNTER 2024-02-28 08:46 | Outpatient (REF) | payer OTHER, SELFPAY ==
[2024-02-28 09:16] LABS: MANUAL DIFF FLAG NO
[2024-02-28 10:07] LABS: Basophils Percent Auto 0.2 % (0-2); Eosinophils Absolute Auto 0.1 X10*3/uL (0.0-0.4); Eosinophils Percent Auto 1.2 % (0-4); Hematocrit 40.4 % (37.0-47.0); Hemoglobin 13.9 g/dl (12.0-16.0); Imm Gran Abs Auto 0.01 X10*3/uL (0.00-0.03); Imm Gran Pct Auto 0.2 % (0.0-0.4); Lymphocytes Absolute Auto 1.6 X10*3/uL (1.2-4.9); Lymphocytes Percent Auto 32.1 % (20-40); Mean Corpuscular HGB Conc 34.4 g/dl (31.0-35.0); Mean Corpuscular Hemoglobin 31.7 pg (27.0-33.0); Mean Platelet Volume 9.1 fL (9.4-12.3); Monocytes Absolute Auto 0.3 X10*3/uL (0.1-1.2); Monocytes Percent Auto 5.7 % (2-11); Neutrophils Absolute Auto 3.1 x10*3/uL (2.0-8.3); Neutrophils Percent Auto 60.6 % (45-73); Platelet Count 306 X10*3/uL (160-400); Red Blood Count 4.39 X10*6/uL (4.20-5.50); Red Cell Distribution Width 11.6 % (11.0-16.0); White Blood Count 5.1 X10*3/uL (4.8-10.8)
[2024-02-28 10:44] LABS: Appearance Urine Clear; Color Urine Yellow; Glucose Urine UA Negative (Negative); Leukocyte Esterase Urine Negative (Negative); Nitrite Urine Negative (Negative); Specific Gravity - Urine 1.025 (1.005-1.025); UMIC TRIGGER UACC YES; Urine Blood Trace (Negative); Urine Ketones Negative (Negative); Urine Protein Negative (Neg-Trace)
[2024-02-28 10:49] LABS: Bacteria Urine None Seen (None Seen); Hyaline Casts Urine 0-2 /LPF (0-2); Squamous Epithelial Cell Urine 0-2 /HPF (0-2); WBC Urine 0-5 /HPF (0-5)
[2024-02-28 11:04] LABS: Alanine Aminotransferase 58 U/L (0-31); Albumin Level 4.1 g/dL (3.5-5.0); Alkaline Phosphatase 65 U/L (39-117); Anion Gap 13 (12-20); Aspartate Amino Transferase 31 U/L (5-31); Bilirubin Total 0.5 mg/dL (0.0-1.0); Blood Urea Nitrogen 23 mg/dL (9-16); Calcium 9.4 mg/dL (8.4-10.2); Carbon Dioxide 25 mmol/L (22-29); Chloride 106 mmol/L (96-108); Cholesterol 204 mg/dL (<200); Estimated Glomerular Filt Rate > 60; Glucose Fasting 101 mg/dL (60-99); HDL Cholesterol 49 mg/dL (>40); LDL Cholesterol Calculated 135 mg/dL (<100); Potassium 4.1 mmol/L (3.3-5.1); Sodium 140 mmol/L (135-145); TSH reflex Free T4 0.55 uIU/mL (0.32-4.0); Total Protein 7.1 g/dL (6.5-8.0); Triglycerides 101 mg/dL (<150); Vitamin D 25-OH Total 34.8 ng/mL (>30)
== END 2024-02-28 08:47 | disposition home or self-care (01) ==
LOC: HO.LAB 08:46
PROVIDERS: PCP Internal Medicine; Visit Provider Internal Medicine
DX: Z00.00 Encounter for general adult medical examination without abnormal findings (principal); E78.00 Pure hypercholesterolemia, unspecified; E55.9 Vitamin D deficiency, unspecified; D64.9 Anemia, unspecified
CPT/HCPCS: 36415; 80053; 80061; 81001; 82306; 84443; 85025

== ENCOUNTER 2024-07-12 09:51 | Outpatient (AMB) | payer OTHER, SELFPAY ==
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
[2024-07-12 09:58] VITALS: BP 122/84; BMI 26.0
--- OUTSIDE RECORDS SUMMARY | 2024-07-12 12:01 | XMS_ITS | Encounter Summary ---
Author Organization [employer] Address [address] [facility] [address] [place] [address] Care Team Providers Care It Security Consultant Name Role Phone Unavailable Primary Care Provider Unavailabl e Encounter Details Date Type Department Care Team (Latest Contact Info) Description 09/02/2020 Abstract [facility] CONVERSIONS Dental, Provider, DDS Social History Tobacco Use Types Packs/Day Years Used Date Smoking Tobacco: Never Assessed Comments Unknown Sex and Gender Information Value Date Recorded Sex Assigned at Female 03/01/2022 10:16 AM EDT Legal Sex Female 10:16 AM EDT Gender Identity Female 03/01/2022 10:16 AM EDT Sexual Orientation Straight 03/01/2022 10 :16 AM EDT documented as of this encounter Plan of Treatment Not on file documented as of this encounter Visit Diagnoses Not on filedocumented in this encounter
--- OUTSIDE RECORDS SUMMARY | 2024-07-12 12:01 | XMS_ITS | Encounter Summary ---
Author Organization [employer] Address [address] [facility] [address] [place] [address] Care Team Providers Care Door Slinger Name Role Phone Unavailable Primary Care Provider Unavailabl e Encounter Details Date Type Department Care Team (Latest Contact Info) Description 01/11/2019 Abstract [facility] CONVERSIONS Dental, Provider, DDS Social History Tobacco [...]
--- OUTSIDE RECORDS SUMMARY | 2024-07-12 12:01 | XMS_ITS | Clinical Summary ---
Author Organization [employer] Address [address] [facility] [address] [place] [address] Care Team Providers Care Cosmetic Account Coordinator Name Role Phone Unavailable Primary Care Provider Unavailabl e Social History Tobacco Use Types Packs/Day Years Used Date Smoking Tobacco: Never Assessed Comments Unknown Sex and Gender Information Value Date Recorded Sex Assigned at Female 03/01/2022 10:16 AM EDT Legal Sex Female 10:16 AM EDT Gender Identity Female 03/01/2022 10:16 AM EDT Sexual Orientation Straight 03/01/2022 10 :16 AM EDT Plan of Treatment Health Maintenance Due Date Last Done Comments CT Colonography 1975 Colonoscopy 1975 Colorectal Cancer Screening 1975 Depression Screening 1975 FIT DNA/Cologuard 1975 FIT 1975 FOBT 1975 Sigmoidoscopy 1975 Alcohol/Substance Use Screening 1987 Tobacco Screening 1987 Family Planning (PISQ) 08/27/1990 DTaP/Tdap/Td Vaccines (1 - Tdap) 08/27/1994 Hepatitis B Vaccines (1 of 3 - 19+ 3-dose series) 08/27/1994 Pap Smear 08/27/1996 Cervical Cancer Screening 08/27/2005 HPV/Cotest 08/27/2005 Mammogram 2015 COVID-19 Vaccine (3 - 2023-2 5 season) 2024 2020, 08/01/2020 Influenza Vaccine (#1) 2024 Zoster Vaccines (1 of 2) 08/27/2025 RSV Patients and Patients Aged 60 years or older (1 - 1-dose 75+ series) 08/27/2050 HIB Vaccines Aged Out No longer eligi ble based on patient's age to complete this topic HPV Vaccines Aged Out No longer eligi ble based on patient's age to complete this topic Hepatitis A Vaccines Aged Out No long er eligible based on patient's age to complete this topic IPV Vaccines Aged Out No longer eligi ble based on patient's age to complete this topic Meningococcal Vaccine Aged Out No janice martin eligible based on patient's age to complete this topic Pneumococcal Vaccine: Pediatrics (0 to 5 Years) and At-Risk Patients (6 to 49) Years) Aged Out No longer eligible b ased on patient's age to complete this topic RSV under 20 months Aged Out No longe r eligible based on patient's age to complete this topic Rotavirus Vaccines Aged Out No longer eligible based on patient's age to complete this topic
== END 2024-07-12 10:34 | disposition home or self-care (01) ==
LOC: HO.HWS 09:51
PROVIDERS: PCP Internal Medicine; Visit Provider Advanced Practice Midwife
DX: Z01.419 Encounter for gynecological examination (general) (routine) without abnormal findings (principal)
CPT/HCPCS: 99396; 99459

== ENCOUNTER 2024-07-12 09:51 | Outpatient (REF) | payer OTHER, SELFPAY ==
--- OUTSIDE RECORDS SUMMARY | 2024-07-12 13:14 | XMS_ITS | Encounter Summary ---
Author Organization [employer] Address [address] [facility] [address] [place] [address] Care Team Providers Care Accounting Software Specialist Name Role Phone Unavailable Primary Care Provider Unavailabl e Encounter Details Date Type Department Care Team (Latest Contact Info) Description 01/11/2019 Abstract [facility] CONVERSIONS Dental, Provider, DDS Social History [...]
--- OUTSIDE RECORDS SUMMARY | 2024-07-12 13:14 | XMS_ITS | Encounter Summary ---
Author Organization [employer] Address [address] [facility] [address] [place] [address] Care Team Providers Care Billing And Insurance Coordinator Name Role Phone Unavailable Primary Care Provider Unavailabl e Encounter Details Date Type Department Care Team (Latest Contact Info) Description 09/02/2020 Abstract [facility] CONVERSIONS Dental, Provider, DDS Social History Tobacco [...]
--- OUTSIDE RECORDS SUMMARY | 2024-07-12 13:14 | XMS_ITS | Clinical Summary ---
Author Organization [employer] Address [address] [facility] [address] [place] [address] Care Team Providers Care Aqua Ammonia Operator Name Role Phone Unavailable Primary Care Provider [...]
[2024-07-20 09:14] LABS: HPV Genotype 16 Negative (Negative); HPV Genotype 18 Negative (Negative); HPV High Risk Negative (Negative)
== END 2024-07-12 09:52 | disposition home or self-care (01) ==
LOC: HO.LNP 09:51
PROVIDERS: Advanced Practice Midwife; PCP Internal Medicine; Visit Provider Advanced Practice Midwife
DX: Z01.419 Encounter for gynecological examination (general) (routine) without abnormal findings (principal)
CPT/HCPCS: 87626; 88175; 99396; 99459

== ENCOUNTER 2024-07-18 09:38 | Outpatient (AMB) | payer OTHER, SELFPAY ==
[2024-07-18 09:47] VITALS: BP 116/74; PULSE 81; O2SAT 96; BMI 26.6
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
== END 2024-07-18 10:29 | disposition home or self-care (01) ==
LOC: HO.HMCH 09:39
PROVIDERS: PCP Internal Medicine; Visit Provider Internal Medicine
DX: E78.00 Pure hypercholesterolemia, unspecified (principal); F31.9 Bipolar disorder, unspecified; K21.9 Gastro-esophageal reflux disease without esophagitis; G43.001 Migraine without aura, not intractable, with status migrainosus; R79.89 Other specified abnormal findings of blood chemistry; M54.50 Low back pain, unspecified; F90.9 Attention-deficit hyperactivity disorder, unspecified type; F43.10 Post-traumatic stress disorder, unspecified; F17.200 Nicotine dependence, unspecified, uncomplicated; E66.3 Overweight

== ENCOUNTER → 2024-07-18 09:38 | Outpatient (BNVA) | payer OTHER, SELFPAY | PROVIDERS: PCP Internal Medicine; Visit Provider Internal Medicine | DX: E78.00 Pure hypercholesterolemia, unspecified (principal); K21.9 Gastro-esophageal reflux disease without esophagitis; G43.001 Migraine without aura, not intractable, with status migrainosus; R79.89 Other specified abnormal findings of blood chemistry; M54.50 Low back pain, unspecified; F90.9 Attention-deficit hyperactivity disorder, unspecified type; F31.9 Bipolar disorder, unspecified; F43.10 Post-traumatic stress disorder, unspecified; E66.3 Overweight; Z68.26 Body mass index [BMI] 26.0-26.9, adult; F17.200 Nicotine dependence, unspecified, uncomplicated; Z71.6 Tobacco abuse counseling; Z71.3 Dietary counseling and surveillance | CPT/HCPCS: 96127; 99212 ==

== ENCOUNTER 2024-09-12 09:06 | Outpatient (REF) | payer OTHER, SELFPAY ==
--- OUTSIDE RECORDS SUMMARY | 2024-09-12 09:31 | XMS_ITS | Encounter Summary ---
Author Organization [employer] Address [address] [place] [address] Care Team Providers Care Senior Research Project Manager Name Role Phone Unavailable Primary Care Provider Unavailabl e Encounter Details Date Type Department Care Team (Latest Contact Info) Description 09/02/2020 Abstract [facility] CONVERSIONS Dental, Provider, DDS Social [...]
--- OUTSIDE RECORDS SUMMARY | 2024-09-12 09:31 | XMS_ITS | Encounter Summary ---
Author Organization [employer] Address [address] [place] [address] Care Team Providers Care Jewelry Casting Model Maker Name Role Phone Unavailable Primary Care Provider Unavailabl e Encounter Details Date Type Department Care Team (Latest Contact Info) Description 01/11/2019 Abstract [facility] CONVERSIONS Dental, Provider, DDS Social [...]
--- OUTSIDE RECORDS SUMMARY | 2024-09-12 09:31 | XMS_ITS | Clinical Summary ---
Author Organization [employer] Address [address] [place] [address] Care Team Providers Care Chimney Builder Helper Name Role Phone Unavailable Primary Care Provider [...]
== END 2024-09-12 09:07 | disposition home or self-care (01) ==
LOC: HO.MAMMO 09:06
PROVIDERS: PCP Internal Medicine; Visit Provider Internal Medicine
DX: Z12.31 Encounter for screening mammogram for malignant neoplasm of breast (principal)
CPT/HCPCS: 77063; 77067

== ENCOUNTER → 2024-09-12 09:30 | Outpatient (BNV) | payer OTHER, SELFPAY | PROVIDERS: PCP Internal Medicine; Visit Provider Internal Medicine | DX: Z12.31 Encounter for screening mammogram for malignant neoplasm of breast (principal) | CPT/HCPCS: 77063; 77067 ==

== ENCOUNTER 2025-01-10 09:05 | Outpatient (AMB) | payer OTHER, SELFPAY ==
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
[2025-01-10 09:08] VITALS: BP 106/67; PULSE 87; BMI 26.6
--- OUTSIDE RECORDS SUMMARY | 2025-01-10 10:25 | XMS_ITS | Clinical Summary ---
Author Organization [employer] Address [address] [facility] [address] [place] [address] Care Team Providers Care Seamark Advanced Operator Maintainer Name Role Phone Unavailable Primary Care Provider Unavailabl e Social History Tobacco Use Types Packs/Day Years Used Date Smoking Tobacco: Never Assessed Comments Unknown Sex and Gender Information Value Date Recorded Sex Assigned at Female 03/01/2022 10:16 AM EDT Legal Sex Female 10:16 AM EDT Gender Identity Female 03/01/2022 10:16 AM EDT Sexual Orientation Straight 03/01/2022 10 :16 AM EDT Plan of Treatment Upcoming Encounters Date Type Department Care Team (Late st Contact Info) Description 01/31/2025 2:15 PM EDT Office Visit [facility] ADULT DENTAL [address] [place] [address] Rehan Frederickaris [address] [place] [address] Health Maintenance Due Date Last Done Comments CT Colonography 1975 Colonoscopy 1975 Colorectal Cancer Screening 1975 Depression Screening 1975 FIT DNA/Cologuard 1975 FIT 1975 FOBT 1975 HIV Screening 1975 SDOH Screening 1975 Sigmoidoscopy 1975 Disability Screening 1975 Alcohol/Substance Use Screening 1987 Tobacco Screening 1987 Family Planning (PISQ) 08/27/1990 Hepatitis C Screening 08/27/1993 Hepatitis B Vaccines (1 of 3 - 19+ 3-dose series) 08/27/1994 Pap Smear 08/27/1996 Cervical Cancer Screening 08/27/2005 HPV/Cotest 08/27/2005 Mammogram 2015 Dental Oral Exam 03/06/2021 09/02/2020, 04/2019, 08/26/2017, Additional history exists Dental Prophylaxis 03/06/2021 09/02/2020, 0 01/11/2019, 08/26/2017, Additional history exists Dental X-Ray: Bitewings 09/03/2021 09/03/19 21, 01/11/2019, 08/26/2017, Additional history exists Dental X-Ray: Full Mouth 09/04/2023 09/02/2020, 08/01 COVID-19 Vaccine (3 - 2024- season) 2024 2020, 08/01/2020 Influenza Vaccine (#1) 2024 Zoster Vaccines (1 of 2) 08/27/2025 DTaP/Tdap/Td Vaccines (2 - Td or Tdap) 09/29/2030 09/29/2020, 05/31/2012 RSV Patients and Patients Aged 60 years [...] patient's age to complete this topic Meningococcal B Vaccine Aged Out No l onger eligible based on patient's age to complete this topic Meningococcal Vaccine Aged Out No janice martin eligible based on patient's age to complete this topic Pneumococcal Vaccine: Pediatrics (0 to 5 Years) and At-Risk Patients (6 to 49) Years Aged Out No longer eligible based on patient's age to complete this topic RSV under 20 months Aged Out No longe r eligible based on patient's age to complete this topic Rotavirus Vaccines Aged Out No longer eligible based on patient's age to complete this topic Procedures Procedure Name Priority Date/Time Associated Diagnosis Comments PROPHYLAXIS - ADULT Routine 09/02/2020 1 2:00 AM EDT INTRAORAL - COMPLETE SERIES OF RADIOGRAPHIC IMAGES Routine 09/02/2020 12:00 AM EDT PERIODIC ORAL EVALUATION - ESTABLISHED PATIENT Routine 09/02/2020 12:00 AM EDT from Last 3 Months or Most Recently Relevant to Health Maintenance Insurance [place]
--- OUTSIDE RECORDS SUMMARY | 2025-01-10 10:25 | XMS_ITS | Patient Health Record ---
Author Organization [facility] Address [address] [place] [address] Care Team Providers Care Camouflage Assembler Name Role Phone Phil (RETIRED) Shmuel NEVAREZ Primary Care Provide r Unavailable Sammy Casarez Unavailable [phone] Reason For Referral No Information Plan Of Treatment No Information Insurance Providers Payer Name Payer Address Payer Phone Subscriber Number Group Number Insured Name Patient Relationship to Insured Coverage Start Date Coverage End Date [facility] [address] [address] [place], [place] [id number] MARC HAMMOND Self - patient is the insured
--- OUTSIDE RECORDS SUMMARY | 2025-01-10 10:25 | XMS_ITS | Encounter Summary ---
Author Organization [employer] Address [address] [facility] [address] [place] [address] Care Team Providers Care Nurse Plastics Name Role Phone Unavailable Primary Care Provider Unavailabl e Encounter Details Date Type Department Care Team (Latest Contact Info) Description 09/02/2020 Abstract [facility] CONVERSIONS Dental, Provider, DDS Social History Tobacco Use Types Packs/Day Years Used Date Smoking Tobacco: Never Assessed Comments Unknown Sex and Gender Information Value Date Recorded Sex Assigned at Female 03/01/2022 10:16 AM EDT Legal Sex Female 10:16 AM EDT Gender Identity Female 03/01/2022 10:16 AM EDT Sexual Orientation Straight 03/01/2022 10 :16 AM EDT documented as of this encounter Plan of Treatment Upcoming Encounters Date Type Department Care Team (Late st Contact Info) Description 01/31/2025 2:15 PM EDT Office Visit [facility] ADULT DENTAL [address] [place] [address] Otoniel Iva [address] [place] [address] documented as of this encounter Visit Diagnoses Not on filedocumented in this encounter
--- OUTSIDE RECORDS SUMMARY | 2025-01-10 10:25 | XMS_ITS | Encounter Summary ---
Author Organization [employer] Address [address] [facility] [address] [place] [address] Care Team Providers Care Simplex Printer Installer Name Role Phone Unavailable Primary Care Provider Unavailabl e Encounter Details Date Type Department Care Team (Latest Contact Info) Description 01/11/2019 Abstract [facility] CONVERSIONS Dental, Provider, DDS Social History [...] Description 01/31/2025 2:15 PM EDT Office Visit [facility] ADULT DENTAL [address] [place] [address] Rehan Frederickaris [address] [place] [address] documented as of this encounter Visit Diagnoses Not on filedocumented in this encounter
== END 2025-01-10 09:25 | disposition home or self-care (01) ==
LOC: HO.HGI 09:06
PROVIDERS: PCP Internal Medicine; Visit Provider Nurse Practitioner Family
DX: K21.9 Gastro-esophageal reflux disease without esophagitis (principal)
CPT/HCPCS: 99213

== ENCOUNTER → 2025-01-10 09:05 | Outpatient (BNVA) | payer OTHER, SELFPAY | PROVIDERS: PCP Internal Medicine; Visit Provider Nurse Practitioner Family | DX: K21.9 Gastro-esophageal reflux disease without esophagitis (principal) | CPT/HCPCS: 99212 ==

== ENCOUNTER 2025-04-08 09:18 | Outpatient (REF) | payer OTHER, SELFPAY ==
--- NOTE | ~2025-04-08 | XR_ITS ---
EXAMINATION: XR SHOULDER, LEFT CLINICAL INFORMATION: M25.512 - Pain in left shoulder COMPARISON: None available. TECHNIQUE: 5 views of the left shoulder. FINDINGS: Mild acromioclavicular arthritis. Glenohumeral joint space is relatively preserved. No acute fracture, dislocation or suspicious bony lesion.. Small calcification along the inferior aspect of the glenoid, could represent subtle spurring, small loose body cannot excluded. XR/XR shoulder LT min 2V IMPRESSION: Mild acromioclavicular arthritis. Small calcification along the inferior aspect of the glenoid, could represent subtle spurring, loose body not excluded. Electronically signed by: Oumar Latham MD 04/08/2025 03:00 PM JOE
== END 2025-04-08 09:19 | disposition home or self-care (01) ==
LOC: HO.XRAY 09:18
PROVIDERS: PCP Internal Medicine; Visit Provider Student in an Organized Health Care Education/Training Program
DX: M25.512 Pain in left shoulder (principal)
CPT/HCPCS: 73030

== ENCOUNTER 2025-04-16 11:36 | Outpatient (AMB) | payer OTHER, SELFPAY ==
[2025-04-16 11:38] VITALS: BP 120/74; PULSE 89; TEMP 36.5; O2SAT 97; BMI 27.1
--- NOTE | 2025-04-16 11:38 | AM.OFFWIN_ITS ---
Intake Vital Signs 04/16/25 11:38 Height 5 ft 3 in Weight 153 lb BMI 27.1 BP 120/74 Blood Pressure Location Rt brachial Position Sitting Pulse 89 Pulse Source Pulse Oximeter Temp 97.7 F Temp Source Oral Pulse Oximetry (%) 97 Oxygen Delivery Method Room Air Intake Visit Reasons: EP-lt armpit rash Intake Note: pt presents with bruising and swelling to left upper arm after applying Lidocaine patches for left arm pain - xray done 04/08/25, still also with left arm pain Patient Tobacco Use Status: Current everyday Tobacco user Allergies No Known Allergies (No Known Allergies*) Allergy (Verified 04/16/25 11:38) Do you need a note to return to daycare/school/sports/work: No HPI HPI Comments History of Present Illness Details History of Present Illness - The patient is a 49 year old female pr esenting with left upper arm pain. - She has had this pain for six weeks, w hich started when she woke up one morning without any known injury. - She was previously seen for this arm p ain and was prescribed lidocaine patches as well as naproxen. - During that visit, she had an X-ray, w hich reportedly showed no significant abnormalities. - She developed a new bruise on her arm yesterday after taking off a patch. - The pain is described as being inside the upper arm, is not tender to touch, and is exacerbated by lifting the arm. - She reports no pain or tingling in her hands. - She did not take her medication or use the patches today. - She denies trauma, fall, numbness, tin gling, shoulder pain, back pain, wrist pain,or hand pain. - She denies chest pain, SOB, calf pain or swelling. - She does not take asa or have anemia. Physical Exam General: Cooperative, healthy appearing, comfortable, no acute distress and well developed Orientation: Patient oriented x3 Respiratory: Normal respiratory effort and able to speak in complete sentences. Clear to auscultation bilaterally Cardiovascular: Regular rate and rhythm. Normal S1 and S2. No m/r/g noted. Skin: Bruising noted on the left upper arm, no rashes or lesions noted. No erythema noted. Neuro: Sensation is intact. Extremities: Bruising on the left upper arm, normal pulses, no swelling or erythema noted. FROM of the left shoulder, elbow, wrist and hand. No TTP of the left upper arm. Hand filament shaper is intact. Strength is 5/5 on the UE. Supination and pronation intact on the left. Patient was informed and verbally consented to the use of an ambient scribe for clinic note documentation during this visit. [facility] Medical History (Updated 01/10/25 @ 09:32 by Jeri Arreguin [facility]) Annual physical exam Scalp cyst Rib pain on right side Cervical cancer screening Renal cyst Chest congestion Colon cancer screening Pharyngitis Gastric erosions Acute tonsillitis Strain of left elbow Upper respiratory tract infection Burn of left arm Candidal vulvovaginitis Complex ovarian cyst Acute cervical myofascial strain Pelvic pain Biliary dyskinesia H. pylori infection Peptic ulcer disease H. pylori infection Pure hypercholesterolemia Smoker Overweight (BMI 25.0-29.9) Posttraumatic stress disorder Migraine headache Hepatitis B Syphilis Panic attacks ADHD Bipolar 1 disorder Surgical History History of esophagogastroduodenoscopy (EGD) History of ectopic History of open reduction and internal fixation (ORIF) procedure History of lumpectomy History of bilateral salpingectomy Family History Sister Cancer Father Medical history unknown Mother Asthma Hepatitis C Hypoglycemia Son In good health Brother In good health Sister In good health Family/Other Breast cancer Other Mental health problem Social History Household Members: None Housing: House Alcohol intake: former Patient Tobacco Use Status: Current everyday Tobacco user Tobacco use type: Cigarette Cigarettes Per Day: 5 e-Cigarette/Vaping Use: Never Used Second Hand Smoke Exposure: Yes service: No Current occupational status: disabled Current occupational exposures/hazards: No Sexual orientation: Straight/Heterosexual Gender identity: Female Cognitive needs: No Hearing needs: No Vision needs: Yes Female Reproductive History Menstrual Age of Menarche: 10 Review of Systems Const All systems reviewed & are unremarkable except as noted in HPI and below Physical Exam Vital Signs: Last Vital Signs Temp 97.7 F 04/16/25 11:38 Pulse 89 04/16/25 11:38 BP 120/74 04/16/25 11:38 Pulse Ox 97 04/16/25 11:38 Oxygen Delivery Method Room Air 04/16/25 11:38 BMI result Body Mass Index 27.1 Assessment & Plan Assessment & Plan (1) Left upper arm pain: Code(s): M79.622 - Pain in left upper arm (2) Superficial bruising of arm: Code(s): S40.029A - Contusion of unspecified upper arm, initial encounter Qualifiers: Encounter type: initial encounter Laterality: left Qualified Code(s): S40.022A - Contusion of left upper arm, initial encounter Plan Most likely muscle strain or DVT? plan - An ultrasound of the left upper extremity will be performed to rule out deep vein thrombosis (DVT). - Arrangements are being made for the patient to have the ultrasound today. - rest and elevate arm - tylenol or motrin as needed - avoid using the lidocaine patches - will call with the results - follow up with PCP Orders: Orders US venous duplex UE LT Today M79.602 - Pain in left arm Coding Level of Care Code Est Pt Level 4 (48746) Diagnoses Left upper arm pain M79.622 Contusion of left upper extremity, initial encounter S40.022A Encounter type: initial encounter Laterality: left
--- OUTSIDE RECORDS SUMMARY | 2025-04-16 15:27 | XMS_ITS | Encounter Summary ---
Author Organization [employer] Address [address] [facility] 7t [place] [address] Care Team Providers Care Barometers Calibrator Name Role Phone Unavailable Primary Care Provider Unavailabl e Encounter Details Date Type Department Care Team (Latest Contact Info) Description 01/11/2019 Abstract [facility] CONVERSIONS Dental, Provider, DDS Social [...]
--- OUTSIDE RECORDS SUMMARY | 2025-04-16 15:27 | XMS_ITS | Patient Health Record ---
Author Organization [facility] Address [address] [place] [address] Care Team Providers Care Checker Name Role Phone Phil (RETIRED) Shmuel NEVAREZ Primary Care Provide r Unavailable Sammy Casarez Unavailable [phone] Reason For Referral No Information Plan Of Treatment No Information Insurance Providers Payer Name Payer Address Payer Phone Subscriber Number Group Number Insured Name Patient Relationship to Insured Coverage Start Date Coverage End Date [facility] [address] [address] [place], [place] [id number] MARC HAMMOND Self - patient is the insured
--- OUTSIDE RECORDS SUMMARY | 2025-04-16 15:27 | XMS_ITS | Encounter Summary ---
Author Organization [employer] Address [address] [facility] [address]t [place] [address] Care Team Providers Care Guide Rail Cleaner Name Role Phone Unavailable Primary Care Provider Unavailabl e Encounter Details Date Type Department Care Team (Latest Contact Info) Description 09/02/2020 Abstract [facility] CONVERSIONS Dental, Provider, DDS Social History [...]
--- OUTSIDE RECORDS SUMMARY | 2025-04-16 15:27 | XMS_ITS | Clinical Summary ---
Author Organization [employer] Address [address] [facility] [address]t [place] [address] Care Team Providers Care Sea Air Land Officer Name Role Phone Unavailable Primary Care Provider Unavailabl e Allergies No known active allergies Medications Acetaminophen Extra Strength 500 MG tablet TAKE 1 TABLET ORALLY EVERY 6 HOURS NEEDED FOR FEVER OR PAIN FOR 30 DAYS 01/30/2025 Active cholecalciferol VITAMIN D (Vitamin D-3) 50 MCG (1999 UT) capsule Take 1 capsule by mouth Once per day. 02/17/2025 Active RABEprazole (Aciphex) 20 MG EC tablet Take 20 mg by mouth in the morning. 02/07/2025 Active traMADol (Ultram) 50 MG tablet 03/06/2025 Active traZODone (Desyrel) 100 MG tablet TAKE 1-2 TABLET BY MOUTH EVERY NIGHT NEEDED FOR INSOMNIA 12/17/2024 Active Active Problems Problem Noted Date Diagnosed Date Stage 2 grade B generalized periodontitis per 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 03/07/2025 Dental calculus 03/07/2025 Gingival bleeding 03/07/2025 Missing teeth, acquired 03/07/2025 Encounters Date Type Department Care Team Description 03/07/2025 9:30 AM EST Office Visit [facility] ADULT DENTAL [address] [place] [address] Iva Frederick Stage 2 grade B generalized periodontitis per 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 (Primary Dx); Dental calculus; Gingival bleeding; Missing teeth, acquired; Sensitive dentin from Last 3 Months Social History Tobacco Use Types Packs/Day Years Used Date Smoking Tobacco: Every Day Cigarettes Passive Smoke Exposure: Current Smokeless Tobacco: Never Tobacco Cessation:Ready to Q uit: Not Asked; Counseling Given: Not Answered Comments Unknown Sex and Gender Information Value Date Recorded Sex Assigned at Female 03/01/2022 10:16 AM EDT Legal Sex Female 10:16 AM EDT Gender Identity Female 03/01/2022 10:16 AM EDT Sexual Orientation Straight 03/01/2022 10 :16 AM EDT Last Filed Vital Signs Vital Sign Reading Time Taken Comments Blood Pressure 124/72 03/07/2025 9:25 AM EST Pulse - - Temperature - - Respiratory Rate - - Oxygen Saturation - - Inhaled Oxygen Concentration - - Weight - - Height - - Body Mass Index - - Plan of Treatment Health Maintenance Due Date Last Done Comments CT Colonography 1975 Colonoscopy 1975 Colorectal Cancer Screening 1975 Depression Screening 1975 FIT DNA/Cologuard 1975 FIT 1975 FOBT 1975 HIV Screening 1975 Lipid Panel 1975 SDOH Screening 1975 Sigmoidoscopy 1975 Disability Screening 1975 Alcohol/Substance Use Screening 1987 Family Planning (PISQ) 08/27/1990 Hepatitis C Screening 08/27/1993 Hepatitis B Vaccines (1 of 3 - 19+ 3-dose series) 08/27/1994 Pneumococcal Vaccine: Pediatrics (0 to 5 Years) and At-Risk Patients (6 to 49) Years (1 of 2 - PCV) 08/27/1994 Pap Smear 08/27/1996 Cervical Cancer Screening 08/27/2005 HPV/Cotest 08/27/2005 Mammogram 2015 COVID-19 Vaccine (3 - season) 2024 2020, 08/01/2020 Influenza Vaccine (#1) 2024 Zoster Vaccines (1 of 2) 08/27/2025 Dental Oral Exam 09/05/2025 03/07/2025, 07/2020, 01/11/2019, Additional history exists Dental Prophylaxis 09/05/2025 03/07/2025, 0 09/02/2020, 01/11/2019, Additional history exists Tobacco Screening 03/07/2026 03/07/2025 Dental X-Ray: Bitewings 03/08/2026 03/07/20 25, 09/02/2020, 01/11/2019, Additional history exists Dental X-Ray: Full Mouth 03/08/2028 025, 09/02/2020, 08/26/2017 DTaP/Tdap/Td Vaccines (2 - Td or Tdap) [...] Procedure Name Priority Date/Time Associated Diagnosis Comments PERIODIC ORAL EVALUATION - ESTABLISHED PATIENT Routine 03/07/2025 9:30 AM EST CASE PRESENTATION, DETAILED AND EXTENSIVE TREATMENT PLANNING Routine 03/07/2025 9:30 AM EST Stage 2 grade B generalized periodontitis per 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 Dental calculus Gingival bleeding Missing teeth, acquired Sensitive dentin PROPHYLAXIS - ADULT Routine 03/07/2025 9 :30 AM EST Stage 2 grade B generalized periodontitis per 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
== END 2025-04-16 12:49 | disposition home or self-care (01) ==
PROVIDERS: PCP Internal Medicine; Visit Provider Physician Assistant Medical
DX: M79.622 Pain in left upper arm (principal); S40.022A Contusion of left upper arm, initial encounter

== ENCOUNTER → 2025-04-16 11:36 | Outpatient (BNVA) | payer OTHER, SELFPAY | PROVIDERS: PCP Internal Medicine; Visit Provider Physician Assistant Medical | DX: M79.622 Pain in left upper arm (principal); S40.022A Contusion of left upper arm, initial encounter | CPT/HCPCS: 99212 ==

== ENCOUNTER 2025-04-18 07:09 | Outpatient (REF) | payer OTHER, SELFPAY ==
--- NOTE | ~2025-04-18 | US_ITS ---
EXAMINATION: US TRIPLEX UPPER EXTREMITY, LEFT CLINICAL INFORMATION: Arm pain COMPARISON: None available. TECHNIQUE: Color-flow triplex imaging with spectral analysis and compression Doppler was performed on the left upper extremity. FINDINGS: The left internal jugular, subclavian, and axillary veins are patent and free of thrombus. The imaged segment of the left brachiocephalic vein is patent. Spectral doppler waveforms are normal. The brachial, basilic, cephalic, or patent and compressible. US/US venous duplex UE LT IMPRESSION: No evidence of deep venous thrombosis involving the left upper extremity. Electronically signed by: Oumar Latham MD 04/18/2025 08:16 AM [facility]
--- OUTSIDE RECORDS SUMMARY | 2025-04-18 07:11 | XMS_ITS | Encounter Summary ---
Author Organization [employer] Address [address] [facility] [address]t [place] [address] Care Team Providers Care Diet Kitchen Cook Name Role Phone Unavailable Primary Care Provider Unavailabl e Encounter Details Date Type Department Care Team (Latest Contact Info) Description 01/11/2019 Abstract [facility] CONVERSIONS Dental, Provider, DDS Social History [...]
--- OUTSIDE RECORDS SUMMARY | 2025-04-18 07:12 | XMS_ITS | Encounter Summary ---
Author Organization [employer] Address [address] [facility] [address] [place] [address] Care Team Providers Care Package Sealer Name Role Phone Unavailable Primary Care Provider Unavailabl e Encounter Details Date Type Department Care Team (Latest Contact Info) Description 09/02/2020 Abstract [facility] CONVERSIONS Dental, Provider, DDS Social [...]
--- OUTSIDE RECORDS SUMMARY | 2025-04-18 07:12 | XMS_ITS | Clinical Summary ---
Author Organization [employer] Address [address] [facility] [address] [place] [address] Care Team Providers Care Manager Discovery Name Role Phone Unavailable Primary Care Provider [...] Description 03/07/2025 9:30 AM EST Office Visit [facility] ADULT DENTAL [address] [place] [address] Iva Frederick Stage 2 grade B generalized [...]
--- OUTSIDE RECORDS SUMMARY | 2025-04-18 07:12 | XMS_ITS | Patient Health Record ---
Author Organization [facility] Address [address] [place] [address] Care Team Providers Care 7Th Grade Teacher Name Role Phone Phil (RETIRED) Shmuel NEVAREZ Primary Care Provide r Unavailable Sammy Casarez Unavailable [phone] Reason For Referral No Information Plan Of Treatment No Information Insurance Providers Payer Name Payer Address Payer Phone Subscriber Number Group Number Insured Name Patient Relationship to Insured Coverage Start Date Coverage End Date [facility] [address] [address] [place], [place] [id number] MARC HAMMOND Self - patient is the insured
== END 2025-04-18 07:10 | disposition home or self-care (01) ==
LOC: HO.US 07:09
PROVIDERS: PCP Internal Medicine; Visit Provider Physician Assistant Medical
DX: M79.602 Pain in left arm (principal)
CPT/HCPCS: 93971

== ENCOUNTER 2025-04-21 11:04 | Emergency (ER) | payer OTHER, SELFPAY ==
--- NOTE | ~2025-04-21 | XR_ITS ---
CLINICAL HISTORY: Shoulder Pain 5 view left shoulder Comparison: CR/SR - XR SHOULDER 2 OR MORE VIEWS LEFT - 04/08/25 09:47 EST Findings: No fractures or dislocations. Mild degenerative changes of the glenohumeral and acromioclavicular joints. No erosions. No radiopaque foreign body. IMPRESSION: 1. No acute findings. Mild degenerative changes This document has been electronically signed by: Bay Maldonado MD on 04/21/2025 11:37:48
[2025-04-21 11:15] VITALS: BP 126/72; PULSE 93; RESP 16; TEMP 36.4; O2SAT 95; BMI 26.9
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
--- OUTSIDE RECORDS SUMMARY | 2025-04-21 11:35 | XMS_ITS | Clinical Summary ---
Author Organization [employer] Address [address] [facility] [address] [address] [place] [address] Care Team Providers Care Shade Maker Name Role Phone Unavailable Primary Care [...] Description 03/07/2025 9:30 AM EST Office Visit [facility] [address] [place] [address] Iva Frederick Stage 2 grade B generalized [...]
--- OUTSIDE RECORDS SUMMARY | 2025-04-21 11:35 | XMS_ITS | Encounter Summary ---
Author Organization [employer] Address [address] [facility] [address] [place] [address] Care Team Providers Care Towel Hemmer Name Role Phone Unavailable Primary Care Provider Unavailabl e Encounter Details Date Type Department Care Team (Latest Contact Info) Description 09/02/2020 Abstract [facility] Dental, Provider, DDS Social History [...]
--- OUTSIDE RECORDS SUMMARY | 2025-04-21 11:35 | XMS_ITS | Patient Health Record ---
Author Organization [facility] Address [address] [place] [address] Care Team Providers Care Head Stock Operator Name Role Phone Phil (RETIRED) Shmuel NEVAREZ Primary Care Provide r Unavailable Sammy Casarez Unavailable [phone] Reason For Referral No Information Plan Of Treatment No Information Insurance Providers Payer Name Payer Address Payer Phone Subscriber Number Group Number Insured Name Patient Relationship to Insured Coverage Start Date Coverage End Date [facility] [address] [address] [place], [place] [id number] MARC HAMMOND Self - patient is the insured
--- OUTSIDE RECORDS SUMMARY | 2025-04-21 11:35 | XMS_ITS | Encounter Summary ---
Author Organization [employer] Address [address] [facility] [address] [place] [address] Care Team Providers Care Roof Truss Machine Tender Name Role Phone Unavailable Primary Care Provider Unavailabl e Encounter Details Date Type Department Care Team (Latest Contact Info) Description 01/11/2019 Abstract [facility] Dental, Provider, DDS Social History [...]
[2025-04-21 11:59] VITALS: BP 126/72; PULSE 93; RESP 16; TEMP 36.4; O2SAT 95
== END 2025-04-21 12:00 | disposition home or self-care (01) ==
PROVIDERS: Emergency Provider Emergency Medicine Emergency Medical Services; PCP Internal Medicine
DX: M25.512 Pain in left shoulder (principal); F17.210 Nicotine dependence, cigarettes, uncomplicated
CPT/HCPCS: 73030; 99282; 99283

== ENCOUNTER → 2025-04-21 11:19 | Outpatient (BNV) | payer OTHER, SELFPAY | PROVIDERS: Emergency Provider Emergency Medicine Emergency Medical Services; PCP Internal Medicine; Visit Provider Radiology Vascular & Interventional Radiology | DX: M19.012 Primary osteoarthritis, left shoulder (principal) | CPT/HCPCS: 73030 ==